=== PATIENT | female | born 1955 | race Two or more races ===

== ENCOUNTER → 2016-07-02 | Outpatient (CLI) | payer MEDICARE, BC | LOC: SP 12:43 | PROVIDERS: ATTEND Internal Medicine | DX: S70.11XA Contusion of right thigh, initial encounter (principal); X58.XXXA Exposure to other specified factors, initial encounter | CPT/HCPCS: 93971 ==

== ENCOUNTER 2016-10-27 23:40 | Emergency (ER) | payer MEDICARE, BC ==
--- NOTE | 2016-10-28 00:32 | ER Document Report ---
ED General - General Chief Complaint: Dialysis Catheter Problem Stated Complaint: ARM LACERATION Time Seen by Provider: 10/28/16 00:17 Notes: Patient is a 61-year-old female who has end-stage renal disease and is on dialysis. She received dialysis Tuesday. She has a fistula in the right arm. She says started bleeding today. His first time she has ever had a bleed. Fistula was 12 years old. He was placed by Dr. Wilmer Nelson. She held pressure at home. Bleeding is almost completely stopped at this time. She is not on blood thinners. She has no other complaints at this time. TRAVEL OUTSIDE OF THE [place] IN LAST 30 DAYS: No COUNTRY TRAVELED TO/FROM: [facility] - Related Data Allergies/Adverse Reactions: amlodipine besylate [From Norvasc] Allergy (Severe, Verified 02/03/15 08:53) unsure diphenhydramine HCl [From Benadryl] Allergy (Severe, Verified 02/03/15 08:53) Hives heparin (porcine) [Heparin,Porcine] Allergy (Severe, Verified 02/03/15 08:53) Hives losartan [Losartan] Allergy (Severe, Verified 02/03/15 08:53) unsure Pork/Porcine Containing Products [Pork/Porcine Product Derivatives] Allergy ( Severe, Verified 02/03/15 08:53) acetaminophen [From Percocet] Allergy (Intermediate, Verified 02/03/15 08:54) Hives oxycodone HCl [From Percocet] Allergy (Intermediate, Verified 02/03/15 08:54) Hives formoterol fumarate [From Dulera] Adverse Reaction (Severe, Verified 02/03/15 08 :54) Tachycardia mometasone furoate [From Dulera] Adverse Reaction (Severe, Verified 02/03/15 08: 54) Tachycardia ppd Allergy (Severe, Uncoded 02/03/15 08:53) converter Past Medical History - Social History Smoking Status: Never Smoker Frequency of alcohol use: None Drug Abuse: None Family History: Reviewed & Not Pertinent Patient has suicidal ideation: No Patient has homicidal ideation: No - Past Medical History Cardiac Medical History: Reports: Hx Hypertension Pulmonary Medical History: Reports: Hx Asthma Endocrine Medical History: Reports: Hx Diabetes Mellitus Type 2, Hx Hypothyroidism Renal/ Medical History: Reports: Hx End Stage Renal Disease, Hx Hemodialysis, Hx Renal Insufficiency. Denies: Hx Peritoneal Dialysis GI Medical History: Reports: Hx Hepatitis Musculoskeltal Medical History: Reports Hx Arthritis Psychiatric Medical History: Reports: Hx Anxiety, Hx Depression Infectious Medical History: Reports: Hx Hepatitis Past Surgical History: Reports: Hx Cardiac Catheterization, Hx Cardiac Surgery - aortic valve replacement, Hx Cholecystectomy, Hx Gynecologic Surgery - fibroids, Hx Hysterectomy, Hx Kidney (Renal Surgery) - biopsies, Hx Orthopedic Surgery - right elbow, Hx Tonsillectomy, Hx Vascular Surgery - RIGHT FOREARM AV FISTULA - Immunizations Immunizations up to date: Yes Hx Diphtheria, Pertussis, Tetanus Vaccination: Yes Hx Pneumococcal Vaccination: 12/27/07 Review of Systems - Review of Systems Notes: My Normal Review Basic REVIEW OF SYSTEMS: CONSTITUTIONAL : Denies fever, chills, or sweats. Denies recent illness. MUSCULOSKELETAL: Bleeding from fistula in right arm. SKIN: Denies rash or skin lesions. NEUROLOGICAL: Denies altered mental status or loss of consciousness. Denies headache. Denies weakness or paralysis or loss of use of either side. Denies problems with gait or speech. Denies sensory or motor loss. ALL OTHER SYSTEMS REVIEWED AND NEGATIVE. Physical Exam - Vital signs Vitals: Temp Pulse Resp BP Pulse Ox 98.8 F 83 18 183/74 H 98 10/27/16 23:46 10/27/16 23:46 10/27/16 23:46 10/27/16 23:46 10/27/16 23:46 - Notes Notes: General Appearance: Well nourished, alert, cooperative, no acute distress, no obvious discomfort. Vitals: reviewed, See vital signs table. Eyes: PERRL, EOMI, Conjuctiva clear Extremities: Fistula in right forearm. Good palpable thrill. Good distal pulses. There is a small pinpoint area where there is just slow venous ooze from the fistula. Otherwise looks normal. No redness or swelling. Skin: warm, dry, appropriate color, no rash Neuro: speech clear, oriented x 3, normal affect, responds appropriately to questions. Course - Re-evaluation Re-evalutation: 10/28/16 01:28 I placed a quick clot dressing with a compression dressing over the fistula. It is been an hour since I place a dressing. She has no further bleeding. Distal pulses are good. It has a good palpable thrill. Patient safe to be discharged home. Will place dressing over the fistula. Encouraged her leave until she follows up with her dialysis tomorrow. Patient agrees with plan will be discharged home. She is encouraged to return to ER immediately if she has any recurrence of bleeding. Dictation of this chart was performed using voice recognition software; therefore, there may be some unintended grammatical errors. - Vital Signs Vital signs: Temp Pulse Resp BP Pulse Ox 98.8 F 83 18 183/74 H 98 10/27/16 23:46 10/27/16 23:46 10/27/16 23:46 10/27/16 23:46 10/27/16 23:46 Discharge - Discharge Clinical Impression: Dialysis fistula bleed Condition: Good Disposition: HOME, SELF-CARE Additional Instructions: Please keep the fistula covered until you go to dialysis in the am. Please return to the ER if you have recurrent bleeding. Referrals: ALLI GREENFIELD MD [Primary Care Provider] - Follow up as needed
[2016-10-28 01:48] VITALS: BP 125/61
== END 2016-10-28 01:47 | disposition home or self-care (01) ==
LOC: ER 23:40
DX: T82.838A Hemorrhage due to vascular prosthetic devices, implants and grafts, initial encounter (principal); Y84.1 Kidney dialysis as the cause of abnormal reaction of the patient, or of later complication, without mention of misadventure at the time of the procedure; I12.0 Hypertensive chronic kidney disease with stage 5 chronic kidney disease or end stage renal disease; E11.22 Type 2 diabetes mellitus with diabetic chronic kidney disease; N18.6 End stage renal disease; Z99.2 Dependence on renal dialysis; J45.909 Unspecified asthma, uncomplicated; Z88.8 Allergy status to other drugs, medicaments and biological substances; Z91.018 Allergy to other foods; Z88.5 Allergy status to narcotic agent
CPT/HCPCS: 99283

== ENCOUNTER 2016-12-06 08:10 | Day surgery (SDC) | payer MEDICARE, BC ==
[2016-12-06 08:10] LABS: HEMATOCRIT 29.5 % (36.0-47.0); HEMOGLOBIN 10.1 g/dL (12.0-15.5); HGB HCT DIFFERENCE 0.8; MEAN CORPUSCULAR HEMOGLOBIN 35.2 pg (27.0-33.4); MEAN CORPUSCULAR HGB CONC 34.2 g/dL (32.0-36.0); MEAN CORPUSCULAR VOLUME 103 fl (80-97); RED BLOOD COUNT 2.86 10^6/uL (3.72-5.28); RED CELL DISTRIBUTION WIDTH 16.1 % (11.5-14.0)
[2016-12-06 08:18] LABS: ANION GAP 14 (5-19); BLOOD UREA NITROGEN 52 mg/dL (7-20); CALCIUM 9.3 mg/dL (8.4-10.2); CARBON DIOXIDE 28 mmol/L (22-30); CHLORIDE 95 mmol/L (98-107); CREATININE RESULT 6.95 mg/dL (0.52-1.25); GLUCOSE 128 mg/dL (75-110); POTASSIUM 4.7 mmol/L (3.6-5.0); SODIUM 137.1 mmol/L (137-145)
[2016-12-06] MEDS ORDERED: DIAZEPAM 5 MG TABLET ONE (08:39)
[2016-12-06] MEDS ORDERED: OXYCODONE-ACETAMINOPHEN 5-325 MG TABLET ONE (08:39)
[2016-12-06] MEDS ORDERED: FENTANYL CITRATE INJ/PF 100 MCG/2 ML AMPUL ONE (09:44)
[2016-12-06] MEDS ORDERED: LIDOCAINE 0.5% INJ-PF (5 MG/ML) 50 ML SDV ONE (09:44)
[2016-12-06] MEDS ORDERED: MIDAZOLAM 2 MG/2 ML INJ ONE (09:44)
[2016-12-06] MEDS ORDERED: ALTEPLASE INJ 2 MG VIAL (CATH CLEARANCE) INJ PRN (10:18)
--- NOTE | 2016-12-06 10:56 | PDOC DISCHARGE SUMMARY ---
Discharge Summary (SDC) - Discharge Final Diagnosis: #1 malfunctioning AV fistula right radiocephalic. 2. End-stage renal disease on hemodialysis. 3. Diabetes mellitus type 2. 4. Overweight status. Diabetes mellitus type 2. 4. Overweight status. 5. Heart valve replacement. 6. Hypertension. Date of Surgery: 12/06/16 Discharge Date: 12/06/16 Condition: Fair Treatment or Instructions: Discharge home [after recovery per ASU criteria]. Diet , [renal],as tolerated, when fully awake advance as tolerated. Activities within moderation encouraged. Follow up in my office by appointment in about [1 month]. Call for appointment. Leave wounds [covered], [keep clean and dry, until hemodialysis]. Meds per med rec. May shower [in 48 hrs], [try to keep operated area as dry as possible]. Referrals: ALLI GREENFIELD MD [Primary Care Provider] - Discharge Diet: Other (Comments) - Renal Respiratory Treatments at Home: Deep Breathing/Coughing Discharge Activity: Activity As Tolerated Report the Following to Your Physician Immediately: Shortness of Breath, Unusual Bleeding
--- NOTE | 2016-12-06 11:04 | Operative Report ---
Operative Report DATE OF SURGERY: 12/06/16 PREOPERATIVE DIAGNOSIS: #1 malfunctioning AV fistula right radiocephalic. 2. End-stage renal disease on hemodialysis. 3. Diabetes mellitus type 2. 4. Overweight status. Diabetes mellitus type 2. 4. Overweight status. 5. Heart valve replacement. 6. Hypertension. POSTOPERATIVE DIAGNOSIS: #1 malfunctioning AV fistula right radiocephalic. 2. End-stage renal disease on hemodialysis. Post angioplasty. 3. Diabetes mellitus type 2. 4. Overweight status. Diabetes mellitus type 2. 4. Overweight status. 5. Heart valve replacement. 6. Hypertension. Post angioplasty. OPERATION: 1. Needle access and arteriovenous fistula. 2. Second needle into fistula, retrograde. 3. Angioplasty in arteriovenous fistula. 4. Angiogram and interpretation. SURGEON: ASHA REYES VISCOSITY TESTER: [place] ANESTHESIA: Moderate Sedation TISSUE REMOVED OR ALTERED: Not applicable. COMPLICATIONS: None ESTIMATED BLOOD LOSS: 5 mL. INTRAOPERATIVE FINDINGS: Of a well founded right forearm radiocephalic fistula. (Slightly is softer. Cephalad angiogram shows outflow into basilic and cephalic systems. Inflow from a nice 5 mm radial artery 5 mm anastomosis. Chain of lymph nodes type stenoses noted from about 3 cm from the anastomosis to 6 cm from the anastomosis. Estimated 70% stenosis. Eliminated by angioplasty. PROCEDURE: PROCEDURE: After verifying the procedure and having obtained informed consent, the patient's right arm and forearm were prepared with Chlorhexidine and draped out with sterile linen. Local anesthesia infiltrated. Percutaneous access into the fistula obtained about 6 cm from the anastomosis and antegrade angiogram showed essentially normal findings. Percutaneous access into the fistula ,[retrograde], obtained about [20 cm] from the arteriovenous anastomosis using a micro puncture needle followed by micro puncture wire and then a micro puncture catheter. A 0.035 [place] wire was inserted, and over this, a 6 [place] short introducer was placed, this was followed by a 5 mm angioplasty balloon . Angioplasty was now done at the proximal fistula segment. This was done using a 3 mils syringe for 1 minut. utcome. Completion angiogram demonstrated [satisfactory result]. The instrumentation was now withdrawn over and pressure for 10 minutes. Dressings applied, procedure concluded. Exposure time: 1.1 minutes Radiation: 0.9 mcg per centimeter squared Contrast: 25 mL of Isovue-M 300 low osmolality. DICTATING PHYSICIAN: ASHA SRIVASTAVA M.D. cc: ASHA SRIVASTAVA M.D. ([id number]) >>
[2016-12-06 12:23] VITALS: BP 143/59
--- NOTE | 2016-12-06 15:39 | RADIOLOGY REPORT (SQ) ---
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 TECHNIQUE: Intra-operative images acquired during surgical procedure to evaluate progress. NUMBER OF IMAGES: Cine fluoroscopic images. LIMITATIONS: None. FINDINGS: Intra procedural imaging and fluoro during procedure per Dr. Nelson IMPRESSION: Intra procedural imaging and fluoro COMMENT: Quality ID [id number]: Final reports for procedures using fluoroscopy that document radiation exp osure indices, or exposure time and number of fluorographic images (if radiation exposure indices are not available) Please consult full operative report of the attending physician for description of the procedure. TECHNICAL DOCUMENTATION: JOB ID: [id number] [employer]- All Rights Reserved
== END 2016-12-06 12:33 | disposition home or self-care (01) ==
LOC: SC 08:10
PROVIDERS: ATTEND Surgery
PROC: 057D3DZ Dilation of Right Cephalic Vein with Intraluminal Device, Percutaneous Approach (ICD-10-PCS; principal; 2016-12-06)
DX: T82.858A Stenosis of other vascular prosthetic devices, implants and grafts, initial encounter (principal); Y83.2 Surgical operation with anastomosis, bypass or graft as the cause of abnormal reaction of the patient, or of later complication, without mention of misadventure at the time of the procedure; I12.0 Hypertensive chronic kidney disease with stage 5 chronic kidney disease or end stage renal disease; E11.22 Type 2 diabetes mellitus with diabetic chronic kidney disease; N18.6 End stage renal disease; Z99.2 Dependence on renal dialysis; E66.3 Overweight; J45.909 Unspecified asthma, uncomplicated; E78.00 Pure hypercholesterolemia, unspecified; G47.30 Sleep apnea, unspecified; I73.9 Peripheral vascular disease, unspecified; E11.621 Type 2 diabetes mellitus with foot ulcer; L97.519 Non-pressure chronic ulcer of other part of right foot with unspecified severity; Z95.2 Presence of prosthetic heart valve; Z88.8 Allergy status to other drugs, medicaments and biological substances
CPT/HCPCS: 36415; 85027; 80048; 36902; C1752; C1725; C1887; Q9967; C1769; J2997; J2250; A9270 ×2; J3010; J3490

== ENCOUNTER 2016-12-17 07:14 | Emergency (ER) | payer MEDICARE, BC ==
[2016-12-17] MEDS ORDERED: ONDANSETRON 4 MG TAB.RAPDIS PO ONE (08:19)
[2016-12-17] MEDS ORDERED: LIDOCAINE 5% (700 MG) TRANSDERMAL ADH..PATCH TP ONE (08:25)
--- NOTE | 2016-12-17 09:07 | ER Document Report ---
HPI - HPI Patient complains to provider of: knee, ankle pain, chronic back pain Onset: Other - Chronic, worse over the past week. Quality of pain: Sharp Pain Level: 5 Context: Patient presents complaining of flareup of her chronic arthritic pain to her right knee and right ankle. Patient also states that she has chronic low back pain with sciatica to the right lower extremity. Patient denies any urinary symptoms. Patient denies any new injury. Associated Symptoms: Other - Right ankle, right knee, low back Exacerbated by: Movement, Walking Relieved by: Denies Similar symptoms previously: Yes Recently seen / treated by doctor: Yes - ROS ROS below otherwise negative: Yes Systems Reviewed and Negative: Yes All other systems reviewed and negative - EENT EENT: DENIES: Sore Throat - NEURO Neurology: DENIES: Weakness - CARDIOVASCULAR Cardiovascular: DENIES: Chest pain - RESPIRATORY Respiratory: DENIES: Trouble Breathing, Coughing - GASTROINTESTINAL Gastrointestinal: REPORTS: Nausea. DENIES: Patient vomiting - REPRODUCTIVE Reproductive: DENIES: : - MUSCULOSKELETAL Musculoskeletal: REPORTS: Extremity pain, Back Pain. 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 Denies: Hx Peritoneal Dialysis GI Medical History: Reports: Hx Hepatitis Musculoskeltal Medical History: Reports Hx Arthritis - ALL OVER Psychiatric Medical History: Reports: Hx Anxiety, Hx Depression Infectious Medical History: Reports: Hx Hepatitis Past Surgical History: Reports: Hx Cardiac Catheterization, Hx Cardiac Surgery - aortic valve replacement, Hx Cholecystectomy, Hx Gynecologic Surgery - fibroids, Hx Hysterectomy, Hx Kidney (Renal Surgery) - biopsies, Hx Orthopedic Surgery - right elbow, Hx Tonsillectomy, Hx Vascular Surgery - RIGHT FOREARM AV FISTULA - Immunizations Immunizations up to date: Yes Hx Diphtheria, Pertussis, Tetanus Vaccination: Yes Hx Pneumococcal Vaccination: 12/27/07 Vertical Provider Document - CONSTITUTIONAL Agree With Documented VS: Yes Exam Limitations: No Limitations General Appearance: WD/WN, No Apparent Distress - INFECTION CONTROL TRAVEL OUTSIDE OF THE [place] IN LAST 30 DAYS: No COUNTRY TRAVELED TO/FROM: [place] - HEENT HEENT: Atraumatic, Normocephalic - NECK Neck: Normal Inspection - RESPIRATORY Respiratory: Breath Sounds Normal, No Respiratory Distress O2 Sat by Pulse Oximetry: 100 - CARDIOVASCULAR Cardiovascular: Regular Rate, Regular Rhythm Pulses: Normal: Posterior tibial, Dorsalis pedis - BACK Back: Abnormal Inspection - Lower lumbar tenderness, right SI joint tenderness. negative: CVA Tenderness-Right, CVA Tenderness-Left - MUSCULOSKELETAL/EXTREMETIES Musculoskeletal/Extremeties: MAEW, FROM, Tender - Generalized right knee joint tenderness, right ankle tenderness over lateral malleolar area with 1+ edema. Ankle tender with very light palpation, normal skin color and temperature overlying joint - NEURO Level of Consciousness: Awake, Alert, Appropriate Motor/Sensory: No Motor Deficit - DERM Integumentary: Warm, Dry Course - Re-evaluation Re-evalutation: 12/17/16 The patient presents with low back pain without signs of spinal cord compression , cauda equina syndrome, infection, aneurysm, or other serious etiology. The patient is neurologically intact. Given the extremely risk of these diagnoses further testing and evaluation for these possibilities does not appear to be indicated at this time. Patient has been instructed to return if the symptoms worsen or change in any way. - Vital Signs Vital signs: Temp Pulse Resp BP Pulse Ox 99.0 F 69 18 125/53 L 100 12/17/16 07:15 12/17/16 07:15 12/17/16 07:15 12/17/16 07:15 12/17/16 07:15 - Laboratory Laboratory results interpreted by me: 12/17/16 10:31 Labs- Entire Visit 12/17/16 08:28 Uric Acid 4.5 Discharge - Discharge Clinical Impression: Arthritis Chronic back pain Qualifiers: Back pain location: low back pain Back pain laterality: unspecified Sciatica presence: with sciatica Sciatica laterality: sciatica of right side Qualified Code(s): M54.41 - Lumbago with sciatica, right side Ankle pain, right Qualifiers: Chronicity: chronic Qualified Code(s): M25.571 - Pain in right ankle and joints of right foot Right knee pain Qualifiers: Chronicity: chronic Qualified Code(s): M25.561 - Pain in right knee Condition: Stable Disposition: HOME, SELF-CARE Instructions: Arthritis ([facility]), Chronic Back Pain ([facility]), Muscle Relaxers ([facility]) Additional Instructions: Return immediately for any new or worsening symptoms Followup with your primary care provider, call tomorrow to make a followup appointment Take your pain medication that you have at home as prescribed Prescriptions: Cyclobenzaprine HCl [Flexeril 5 mg Tablet] 5 mg PO TID #15 tablet Walker [Folding Walker] 1 each MC ASDIR PRN #1 each PRN Reason: Referrals: [facility] FOR SURGERY ([facility]) [Provider Group] - Follow up as needed JOSE MIGUEL ROSA MD [[facility]] - 12/20/16
[2016-12-17] MEDS ORDERED: CYCLOBENZAPRINE HCL 10 MG TABLET PO ONE (09:54)
[2016-12-17 09:58] VITALS: BP 130/56
== END 2016-12-17 10:08 | disposition home or self-care (01) ==
LOC: ER 07:14
DX: G89.29 Other chronic pain (principal); M25.561 Pain in right knee; M25.571 Pain in right ankle and joints of right foot; M54.41 Lumbago with sciatica, right side; M17.11 Unilateral primary osteoarthritis, right knee; M19.071 Primary osteoarthritis, right ankle and foot; R11.0 Nausea; J44.9 Chronic obstructive pulmonary disease, unspecified; E11.22 Type 2 diabetes mellitus with diabetic chronic kidney disease; I12.0 Hypertensive chronic kidney disease with stage 5 chronic kidney disease or end stage renal disease; N18.6 End stage renal disease; Z99.2 Dependence on renal dialysis; Z95.2 Presence of prosthetic heart valve
CPT/HCPCS: 99283; 36415; 84550; A9270 ×2; S0119

== ENCOUNTER 2017-02-21 08:52 | Emergency (ER) | payer MEDICARE, BC ==
--- NOTE | 2017-02-21 10:25 | RADIOLOGY REPORT (SQ) ---
EXAM DESCRIPTION: CHEST SINGLE VIEW COMPLETED DATE/TIME: 02/21/2017 10:16 am REASON FOR STUDY: difficulty breathing COMPARISON: 01/20/2016. NUMBER OF VIEWS: One view. TECHNIQUE: Single frontal radiographic view of the chest acquired. LIMITATIONS: None. FINDINGS: LUNGS AND PLEURA: No opacities, masses or pneumothorax. No pleural effusion. MEDIASTINUM AND HILAR STRUCTURES: Mild prominence of the central vascularity, slight congestion. Oth erwise normal with stable contours. HEART AND VASCULAR STRUCTURES: Stable heart size. BONES: No acute findings. HARDWARE: No indwelling lines. Sternal wires appear to be intact. OTHER: No other significant finding. IMPRESSION: Mild vascular congestion. TECHNICAL DOCUMENTATION: JOB ID: [id number] [employer]- All Rights Reserved
[2017-02-21 10:32] LABS: ABSOLUTE LYMPHOCYTES (AUTO) 0.6 10^3/uL (0.5-4.7); ABSOLUTE MONOCYTES (AUTO) 0.5 10^3/uL (0.1-1.4); ABSOLUTE NEUT (AUTO) 3.7 10^3/uL (1.7-8.2); BASOPHILS % (AUTO) 0.9 % (0-2); HEMATOCRIT 28.7 % (36.0-47.0); HEMOGLOBIN 9.8 g/dL (12.0-15.5); HGB HCT DIFFERENCE 0.7; LYMPHOCYTES % (AUTO) 13.3 % (13-45); MEAN CORPUSCULAR HEMOGLOBIN 33.7 pg (27.0-33.4); MEAN CORPUSCULAR HGB CONC 34.1 g/dL (32.0-36.0); MEAN CORPUSCULAR VOLUME 99 fl (80-97); MONOCYTES % (AUTO) 9.3 % (3-13); RED BLOOD COUNT 2.91 10^6/uL (3.72-5.28); RED CELL DISTRIBUTION WIDTH 14.8 % (11.5-14.0); SEGMENTED NEUTROPHILS % (AUTO) 76.5 % (42-78); WHITE BLOOD COUNT 4.9 10^3/uL (4.0-10.5)
--- NOTE | 2017-02-21 10:48 | ER Document Report ---
ED Respiratory Problem - General Chief Complaint: Breathing Difficulty Stated Complaint: DIFFICULTY BREATHING Time Seen by Provider: 02/21/17 10:45 Mode of Arrival: Ambulatory Information source: Patient TRAVEL OUTSIDE OF THE [place] IN LAST 30 DAYS: No COUNTRY TRAVELED TO/FROM: [facility] - [facility] Patient complains to provider of: Cough, Short of breath Onset: Other - 5 DAYS Duration: Continuous Initiating Event: Out of meds - OUT OF ALBUTEROL NEB AND MDI. Quality of pain: Other - SORENESS W/ COUGH Context: Hx asthma, Other - ESRD, ON HEMODIALYSIS, LAST TREATMENT 02/19 Short of Breath: Mild Chest pain/discomfort: Center Cough: Productive Sputum amount: Scant Sputum color: Clear, White Sputum consistency: Mucoid At home treatment: Bronchodilators Associated symptoms: Fever Similar symptoms previously: Yes - NOT RECENT Recently seen / treated by doctor: Yes - DIALYSIS 02/19 - Related Data Allergies/Adverse Reactions: amlodipine besylate [From Norvasc] Allergy (Severe, Verified 02/21/17 09:01) Hives diphenhydramine HCl [From Benadryl] Allergy (Severe, Verified 02/21/17 09:01) Hives heparin (porcine) [Heparin,Porcine] Allergy (Severe, Verified 02/21/17 09:01) Fever losartan [Losartan] Allergy (Severe, Verified 02/21/17 09:01) unsure Pork/Porcine Containing Products [Pork/Porcine Product Derivatives] Allergy ( Severe, Verified 02/21/17 09:01) formoterol fumarate [From Dulera] Adverse Reaction (Severe, Verified 02/21/17 09 :01) Tachycardia mometasone furoate [From Dulera] Adverse Reaction (Severe, Verified 02/21/17 09: 01) Tachycardia ppd Allergy (Severe, Uncoded 02/21/17 09:01) converter Past Medical History - General Information source: Patient - Social History Smoking Status: Former Smoker Cigarette use (# per day): No Chew tobacco use (# tins/day): No Frequency of alcohol use: None Drug Abuse: None Lives with: Family Family History: Reviewed & Not Pertinent Patient has suicidal ideation: No Patient has homicidal ideation: No - Past Medical History Cardiac Medical History: Reports: Hx Hypertension, Hx Heart Murmur - AORTIC STENOSIS Denies: Hx Coronary Artery Disease - HEART CATH 10/11 CLEAR, Hx Heart Attack Pulmonary Medical History: Reports: Hx Asthma - SEASONAL ALLERGIES TRIGGER ASTHMA, Hx COPD Denies: Hx Bronchitis, Hx Pneumonia Neurological Medical History: Denies: Hx Cerebrovascular Accident, Hx Seizures Endocrine Medical History: Reports: Hx Diabetes Mellitus Type 2, Hx Hypothyroidism Renal/ Medical History: Reports: Hx End Stage Renal Disease, Hx Hemodialysis, Hx Renal Insufficiency. Denies: Hx Peritoneal Dialysis Malignancy Medical History: Reports: None GI Medical History: Reports: Hx Hepatitis Musculoskeltal Medical History: Reports Hx Arthritis - ALL OVER Psychiatric Medical History: Reports: Hx Anxiety, Hx Depression Infectious Medical History: Reports: Hx Hepatitis Past Surgical History: Reports: Hx Cardiac Catheterization, Hx Cardiac Surgery - aortic valve replacement, Hx Cholecystectomy, Hx Gynecologic Surgery - fibroids, Hx Hysterectomy, Hx Kidney (Renal Surgery) - biopsies, Hx Orthopedic Surgery - right elbow, Hx Tonsillectomy, Hx Vascular Surgery - RIGHT FOREARM AV FISTULA - Immunizations Immunizations up to date: Yes Hx Diphtheria, Pertussis, Tetanus Vaccination: Yes Hx Pneumococcal Vaccination: 12/27/07 Review of Systems - Review of Systems Constitutional: Diaphoresis, Fever EENT: No symptoms reported Cardiovascular: See HPI Respiratory: See HPI Gastrointestinal: No symptoms reported Genitourinary: No symptoms reported Female Genitourinary: Post menopausal Musculoskeletal: No symptoms reported Skin: No symptoms reported Neurological/Psychological: No symptoms reported Physical Exam - Vital signs Vitals: Temp Pulse Resp BP Pulse Ox 99.0 F 79 20 144/64 H 99 02/21/17 08:55 02/21/17 08:55 02/21/17 08:55 02/21/17 08:55 02/21/17 08:55 Interpretation: Hypertensive. No: Tachycardic, Hypoxic, Tachypneic, Febrile - General General appearance: Appears well In distress: None - HEENT Head: Normocephalic Eyes: Normal Conjunctiva: Normal Ears: Normal Nasal: Normal Mouth/Lips: Normal Mucous membranes: Normal Pharynx: Normal - Respiratory Respiratory status: No respiratory distress Breath sounds: Normal. No: Rales, Rhonchi, Wheezing - Cardiovascular Rhythm: Regular Murmur: Yes Systolic murmur grade 1-6: 4 Friction rub: No Wilbert's crunch: No - Abdominal Inspection: Obese - Extremities General upper extremity: Normal inspection General lower extremity: Edema - 1+ - Neurological Neuro grossly intact: Yes Cognition: Normal Orientation: AAOx4 - Psychological Associated symptoms: Normal affect, Normal mood - Skin Skin Temperature: Warm Skin Moisture: Dry Skin Color: Normal Skin Turgor: Elastic Course - Vital Signs Vital signs: Temp Pulse Resp BP Pulse Ox 99.0 F 79 18 134/60 H 95 02/21/17 08:55 02/21/17 08:55 02/21/17 14:01 02/21/17 14:01 02/21/17 14:00 - Laboratory Result Diagrams: 02/21/17 10:15 02/21/17 10:15 Laboratory results interpreted by me: 02/21/17 02/21/17 10:15 10:15 RBC 2.91 L Hgb 9.8 L Hct 28.7 L MCV 99 H MCH 33.7 H RDW 14.8 H Plt Count 143 L Sodium 136.8 L Potassium 6.4 H* Chloride 94 L BUN 61 H Creatinine 7.64 H Est GFR ( Amer) 7 L Est GFR (Non-Af Amer) 5 L Glucose 146 H Direct Bilirubin 1.0 H AST 46 H Alkaline Phosphatase 140 H - Consults DR. HOYOS Reason for consultation: 02/21/17 20:29 ACCEPTS PATIENT FOR TRANSFER TO [facility] (HEMODIALYSIS UNAVAILABLE AT [facility] FOR EXTENDED TIME PERIOD). Discharge - Discharge Clinical Impression: Hyperkalemia, End stage renal disease Hypervolemia Qualifiers: Hypervolemia type: unspecified Qualified Code(s): E87.70 - Fluid overload, unspecified Condition: Stable Disposition: [facility]
[2017-02-21 10:54] LABS: ALANINE AMINOTRANSFERASE 50 U/L (9-52); ALKALINE PHOSPHATASE 140 U/L (38-126); ANION GAP 15 (5-19); ASPARTATE AMINO TRANSFERASE 46 U/L (14-36); BLOOD UREA NITROGEN 61 mg/dL (7-20); CALCIUM 8.5 mg/dL (8.4-10.2); CARBON DIOXIDE 28 mmol/L (22-30); CHLORIDE 94 mmol/L (98-107); CREATININE RESULT 7.64 mg/dL (0.52-1.25); GLUCOSE 146 mg/dL (75-110); SODIUM 136.8 mmol/L (137-145); TOTAL PROTEIN 7.1 g/dL (6.3-8.2)
[2017-02-21 10:58] LABS: POTASSIUM 6.4 mmol/L (3.6-5.0)
[2017-02-21] MEDS ORDERED: ALBUTEROL SULFATE 0.083% NEB 2.5 MG/3 ML AMPUL NEB ONE (11:00)
[2017-02-21] MEDS ORDERED: CALCIUM GLUCONATE 1000 MG/10 ML INJ IV ONE (11:02)
[2017-02-21] MEDS ORDERED: ONDANSETRON HCL INJ/PF 4 MG/2 ML SDV IV ONE (11:49)
--- NOTE | 2017-02-21 13:23 | EKG REPORT ---
SEVERITY:- NORMAL ECG - SINUS RHYTHM : Confirmed by: Kirill Dang MD 21-Feb-2017 13:22:14
[2017-02-21 14:09] VITALS: BP 134/60
== END 2017-02-21 14:20 | disposition short-term general hospital (02) ==
LOC: ER 08:52
DX: E87.5 Hyperkalemia (principal); E87.70 Fluid overload, unspecified; R06.00 Dyspnea, unspecified; R05 Cough; R06.02 Shortness of breath; R50.9 Fever, unspecified; E11.22 Type 2 diabetes mellitus with diabetic chronic kidney disease; I12.0 Hypertensive chronic kidney disease with stage 5 chronic kidney disease or end stage renal disease; N18.6 End stage renal disease; E03.9 Hypothyroidism, unspecified; Z99.2 Dependence on renal dialysis; Z95.2 Presence of prosthetic heart valve; Z90.49 Acquired absence of other specified parts of digestive tract
CPT/HCPCS: 93005; 94640; 99285; 96375; 96365; 36415; 85025; 80053; 71010; 93010; J0610; J2405; A9270

== ENCOUNTER → 2017-05-09 | Outpatient (CLI) | payer MEDICARE, BC ==
--- NOTE | 2017-05-09 15:22 | RADIOLOGY REPORT (SQ) ---
EXAM DESCRIPTION: KNEE LEFT 4 VIEWS COMPLETED DATE/TIME: 05/09/2017 11:33 am REASON FOR STUDY: ANKYLOSIS, LEFT KNEE M24.662 ANKYLOSIS, LEFT KNEE COMPARISON: None. NUMBER OF VIEWS: Four views. TECHNIQUE: AP, lateral, and both oblique radiographic images acquired of the left knee. LIMITATIONS: None. FINDINGS: MINERALIZATION: Normal. BONES: No acute fracture or dislocation. No worrisome bone lesions. JOINT: Severe degenerative changes involving the patellofemoral joint. Moderate degenerative changes involving the medial compartment and mild degenerative changes involving the lateral compartment. S mall joint effusion SOFT TISSUES: No soft tissue swelling. No radio-opaque foreign body. Severe arterial calcification. OTHER: No other significant finding. IMPRESSION: Severe degenerative changes involving the patellofemoral joint with less marked changes involving medial and lateral compartments. TECHNICAL DOCUMENTATION: JOB ID: [id number] [employer]- All Rights Reserved
== END ==
LOC: OD 10:55
PROVIDERS: ATTEND Internal Medicine
DX: M24.662 Ankylosis, left knee (principal)

== ENCOUNTER 2017-07-07 01:29 | Emergency (ER) | payer MEDICARE, BC ==
[2017-07-07] MEDS ORDERED: LIDOCAINE 1%/EPINEPHRINE INJ 20 ML VIAL INJ ONE (02:24)
--- NOTE | 2017-07-07 03:19 | ER Document Report ---
ED General - General Chief Complaint: Post Surgical Bleeding Stated Complaint: ARM BLEEDING Time Seen by Provider: 07/07/17 02:20 Mode of Arrival: Wheelchair Information source: Patient TRAVEL OUTSIDE OF THE [place] IN LAST 30 DAYS: No COUNTRY TRAVELED TO/FROM: [facility] Patient complains to provider of: Bleeding from AV fistula Onset: Yesterday Onset/Duration: Persistent Quality of pain: No pain Associated symptoms: None Notes: Patient is a 61-year-old female presenting to the emergency room today complaining of bleeding from the AV fistula in her right forearm since dialysis yesterday, she denies any pain, no generalized weakness, no other symptoms - Related Data Allergies/Adverse Reactions: amlodipine besylate [From Norvasc] Allergy (Severe, Verified 07/07/17 01:53) Hives diphenhydramine HCl [From Benadryl] Allergy (Severe, Verified 07/07/17 01:53) Hives heparin (porcine) [Heparin,Porcine] Allergy (Severe, Verified 07/07/17 01:53) Fever losartan [Losartan] Allergy (Severe, Verified 07/07/17 01:53) unsure Pork/Porcine Containing Products [Pork/Porcine Product Derivatives] Allergy ( Severe, Verified 07/07/17 01:53) formoterol fumarate [From Dulera] Adverse Reaction (Severe, Verified 07/07/17 01 :53) Tachycardia mometasone furoate [From Dulera] Adverse Reaction (Severe, Verified 07/07/17 01: 53) Tachycardia ppd Allergy (Severe, Uncoded 02/21/17 09:01) converter Past Medical History - General Information source: Patient - Social History Smoking Status: Former Smoker Chew tobacco use (# tins/day): No Frequency of alcohol use: None Drug Abuse: None Family History: Reviewed & Not Pertinent Patient has suicidal ideation: No Patient has homicidal ideation: No - Past Medical History Cardiac Medical History: Reports: Hx Hypertension, Hx Heart Murmur - AORTIC STENOSIS Denies: Hx Coronary Artery Disease - HEART CATH 10/11 CLEAR, Hx Heart Attack Pulmonary Medical History: Reports: Hx Asthma - SEASONAL ALLERGIES TRIGGER ASTHMA, Hx COPD Denies: Hx Bronchitis, Hx Pneumonia Neurological Medical History: Denies: Hx Cerebrovascular Accident, Hx Seizures Endocrine Medical History: Reports: Hx Diabetes Mellitus Type 2, Hx Hypothyroidism Renal/ Medical History: Reports: Hx End Stage Renal Disease, Hx Hemodialysis, Hx Renal Insufficiency. Denies: Hx Peritoneal Dialysis GI Medical History: Reports: Hx Hepatitis Musculoskeltal Medical History: Reports Hx Arthritis - ALL OVER Psychiatric Medical History: Reports: Hx Anxiety, Hx Depression Infectious Medical History: Reports: Hx Hepatitis Past Surgical History: Reports: Hx Cardiac Catheterization, Hx Cardiac Surgery - aortic valve replacement, Hx Cholecystectomy, Hx Gynecologic Surgery - fibroids, Hx Hysterectomy, Hx Kidney (Renal Surgery) - biopsies, Hx Orthopedic Surgery - right elbow, Hx Tonsillectomy, Hx Vascular Surgery - RIGHT FOREARM AV FISTULA - Immunizations Immunizations up to date: Yes Hx Diphtheria, Pertussis, Tetanus Vaccination: Yes Hx Pneumococcal Vaccination: 12/27/07 Review of Systems - Review of Systems Constitutional: No symptoms reported EENT: No symptoms reported Cardiovascular: No symptoms reported Respiratory: No symptoms reported Gastrointestinal: No symptoms reported Genitourinary: No symptoms reported Female Genitourinary: No symptoms reported Musculoskeletal: No symptoms reported Skin: See HPI Hematologic/Lymphatic: No symptoms reported Neurological/Psychological: No symptoms reported -: Yes All other systems reviewed and negative Physical Exam - Vital signs Vitals: Temp Pulse Resp BP Pulse Ox 98.0 F 69 20 171/51 H 97 07/07/17 01:52 07/07/17 01:52 07/07/17 01:52 07/07/17 01:52 07/07/17 01:52 - Notes Notes: - General General appearance: Appears well, Alert In distress: None - HEENT Head: Normocephalic, Atraumatic Eyes: Normal Conjunctiva: Normal Extraocular movements intact: Yes Eyelashes: Normal Pupils: PERRL - Respiratory Respiratory status: No respiratory distress - Cardiovascular Rhythm: Regular - Abdominal Inspection: Normal - Back Back: Normal - Extremities General upper extremity: AV fistula present in the right forearm, positive thrill, 2 small puncture areas that are oozing blood very slowly, distal sensation and motor is intact with brisk capillary refill and 2+ radial pulses General lower extremity: Normal inspection - Neurological Neuro grossly intact: Yes Orientation: AAOx4 [place] Coma Scale Eye Opening: Spontaneous [place] Coma Scale Verbal: Oriented [place] Coma Scale Motor: Obeys Commands [place] Coma Scale Total: 15 - Psychological Associated symptoms: Normal affect, Normal mood - Skin Skin Temperature: Warm Skin Moisture: Dry Skin Color: Normal Course - Re-evaluation Re-evalutation: 07/07/17 03:35 Bandages were removed from the AV fistula, there are 2 small puncture areas that are bleeding very slightly, Gelfoam was placed over these areas and a snug dressing was applied, patient was advised to leave this bandaging in place until her dialysis appointment in the morning, follow-up accordingly or return if symptoms worsen, patient acknowledges understanding and agreement with this plan - Vital Signs Vital signs: Temp Pulse Resp BP Pulse Ox 98.0 F 69 20 171/51 H 97 07/07/17 01:52 07/07/17 01:52 07/07/17 01:52 07/07/17 01:52 07/07/17 01:52 Discharge - Discharge Clinical Impression: Malfunction of arteriovenous dialysis fistula Qualifiers: Encounter type: initial encounter Qualified Code(s): T82.590A - Other mechanical complication of surgically created arteriovenous fistula, initial encounter Condition: Stable Disposition: HOME, SELF-CARE Instructions: Puncture Wound ([facility]) Additional Instructions: Follow up with your primary care provider in one to 2 days. Return to the emergency room immediately if symptoms worsen or any additional concerns.
[2017-07-07 03:42] VITALS: BP 176/56
== END 2017-07-07 03:42 | disposition home or self-care (01) ==
LOC: ER 01:29
DX: T82.590A Other mechanical complication of surgically created arteriovenous fistula, initial encounter (principal); G89.18 Other acute postprocedural pain; Z99.2 Dependence on renal dialysis; Z87.891 Personal history of nicotine dependence; I10 Essential (primary) hypertension; J44.9 Chronic obstructive pulmonary disease, unspecified; E11.9 Type 2 diabetes mellitus without complications
CPT/HCPCS: 99283; J3490

== ENCOUNTER 2017-07-08 19:33 | Emergency (ER) | payer MEDICARE, BC ==
--- NOTE | 2017-07-08 20:36 | ER Document Report ---
ED General - General Chief Complaint: Post Surgical Bleeding Stated Complaint: FATIGUE Time Seen by Provider: 07/08/17 20:16 Notes: Patient is a 61-year-old female with a past medical history of chronic kidney disease with dialysis dependence, aortic valve replacement with a mechanical valve requiring chronic and correlation on Coumadin, hypertension, hyperlipidemia, who presents with several days of ongoing bleeding from her right AV fistula. She describes a slow amount of a losing amount of bleeding. She was seen in the emergency department yesterday for the same and had a bandage placed which she states temporarily controlled the bleeding until today. She denies any trauma to the area. She states that she has been holding her warfarin per her rn traveling's instructions as her INR was apparently supratherapeutic at 5 earlier this week. She denies any history of similar issues in the past. Nothing improves or worsens her symptoms currently. She denies any pain to the fistula area. She has not missed any dialysis sessions secondary to this complication. TRAVEL OUTSIDE OF THE [place] IN LAST 30 DAYS: No COUNTRY TRAVELED TO/FROM: [facility] - Related Data Allergies/Adverse Reactions: amlodipine besylate [From Norvasc] Allergy (Severe, Verified 07/07/17 01:53) Hives diphenhydramine HCl [From Benadryl] Allergy (Severe, Verified 07/07/17 01:53) Hives heparin (porcine) [Heparin,Porcine] Allergy (Severe, Verified 07/07/17 01:53) Fever losartan [Losartan] Allergy (Severe, Verified 07/07/17 01:53) unsure Pork/Porcine Containing Products [Pork/Porcine Product Derivatives] Allergy ( Severe, Verified 07/07/17 01:53) formoterol fumarate [From Dulera] Adverse Reaction (Severe, Verified 07/07/17 01 :53) Tachycardia mometasone furoate [From Dulera] Adverse Reaction (Severe, Verified 07/07/17 01: 53) Tachycardia ppd Allergy (Severe, Uncoded 02/21/17 09:01) converter Past Medical History - General Information source: Patient - Social History Smoking Status: Former Smoker Chew tobacco use (# tins/day): No Frequency of alcohol use: None Drug Abuse: None Lives with: Alone Family History: Reviewed & Not Pertinent Patient has suicidal ideation: No Patient has homicidal ideation: No - Past Medical History Cardiac Medical History: Reports: Hx Hypertension, Hx Heart Murmur - AORTIC STENOSIS Denies: Hx Coronary Artery Disease - HEART CATH 10/11 CLEAR, Hx Heart Attack Pulmonary Medical History: Reports: Hx Asthma - SEASONAL ALLERGIES TRIGGER ASTHMA, Hx COPD Denies: Hx Bronchitis, Hx Pneumonia Neurological Medical History: Denies: Hx Cerebrovascular Accident, Hx Seizures Endocrine Medical History: Reports: Hx Diabetes Mellitus Type 2, Hx Hypothyroidism Renal/ Medical History: Reports: Hx End Stage Renal Disease, Hx Hemodialysis, Hx Renal Insufficiency. Denies: Hx Peritoneal Dialysis GI Medical History: Reports: Hx Hepatitis Musculoskeltal Medical History: Reports Hx Arthritis - ALL OVER Psychiatric Medical History: Reports: Hx Anxiety, Hx Depression Infectious Medical History: Reports: Hx Hepatitis Past Surgical History: Reports: Hx Cardiac Catheterization, Hx Cardiac Surgery - aortic valve replacement, Hx Cholecystectomy, Hx Gynecologic Surgery - fibroids, Hx Hysterectomy, Hx Kidney (Renal Surgery) - biopsies, Hx Orthopedic Surgery - right elbow, Hx Tonsillectomy, Hx Vascular Surgery - RIGHT FOREARM AV FISTULA - Immunizations Immunizations up to date: Yes Hx Diphtheria, Pertussis, Tetanus Vaccination: Yes Hx Pneumococcal Vaccination: 12/27/07 Review of Systems - Review of Systems Notes: Constitutional: Negative for fever. HENT: Negative for sore throat. Eyes: Negative for visual changes. Cardiovascular: Negative for chest pain. Respiratory: Negative for shortness of breath. Gastrointestinal: Negative for abdominal pain, vomiting or diarrhea. Genitourinary: Negative for dysuria. Musculoskeletal: Negative for back pain. Skin: Positive for bleeding from the AV fistula. Neurological: Negative for headaches, weakness or numbness. 10 point ROS negative except as marked above and in HPI. Physical Exam - Vital signs Vitals: Temp Pulse Resp BP Pulse Ox 98.2 F 67 20 198/66 H 98 07/08/17 19:34 07/08/17 19:34 07/08/17 19:34 07/08/17 19:34 07/08/17 19:34 Interpretation: Hypertensive Notes: PHYSICAL EXAMINATION: GENERAL: Well-appearing, well-nourished and in no acute distress. HEAD: Atraumatic, normocephalic. EYES: Pupils equal round and reactive to light, extraocular movements intact, sclera anicteric, conjunctiva are normal. ENT: nares patent, oropharynx clear without exudates. Moist mucous membranes. NECK: Normal range of motion, supple without lymphadenopathy LUNGS: Breath sounds clear to auscultation bilaterally and equal. No wheezes rales or rhonchi. HEART: Regular rate and rhythm, mechanical click ABDOMEN: Soft, nontender, normoactive bowel sounds. No guarding, no rebound. No masses appreciated. EXTREMITIES: Normal range of motion, no pitting or edema. No cyanosis. NEUROLOGICAL: No focal neurological deficits. Moves all extremities spontaneously and on command. PSYCH: Anxious, intermittently tearful SKIN: Warm, Dry, normal turgor, there is 2 small areas of punctate openings with small amount of slow venous bleeding over the AV fistula. Course - Re-evaluation Re-evalutation: 07/08/17 20:35 Patient presents with very small amount of bleeding from her fistula site in the right forearm. There is a very minimal oozing from 2 small punctate sites and the dressing is not significantly saturated. Patient's vitals are within acceptable limits without substantial tachycardia at 67 and she is actually quite hypertensive as opposed to hypotensive which is her baseline. Patient has been holding her Coumadin per her report for the past several days. Will obtain an INR, CBC and dressed the area. I do not believe that the patient warrants an acute referral to vascular surgery or a higher level of care at this time as she has almost no appreciable bleeding from the affected area and otherwise is well in appearance. I do believe that there are components of a social situation as the patient does report that she is alone and has no family or friends to support her. 07/08/17 21:47 Patient's INR remains in a therapeutic range at 2.71. I have requested that she begin to take her Coumadin tomorrow as scheduled. She is mildly anemic actually much improved from January 2017 at which time she was 9.8 on her hemoglobin. Bleeding has remained hemostatic. At this time will discharge with return precautions and follow-up recommendations. Verbal discharge instructions given a the bedside and opportunity for questions given. Medication warnings reviewed. Patient is in agreement with this plan and has verbalized understanding of return precautions and the need for primary care follow-up in the next 24-72 hours. - Vital Signs Vital signs: Temp Pulse Resp BP Pulse Ox 98 F 66 20 168/62 H 99 07/08/17 22:17 07/08/17 22:17 04/13/18 22:17 07/08/17 22:17 07/08/17 22:17 - Laboratory Result Diagrams: 07/08/17 20:50 Laboratory results interpreted by me: 07/08/17 07/08/17 20:50 20:50 WBC 3.4 L RBC 3.68 L Hgb 11.7 L Hct 35.2 L RDW 16.6 H Plt Count 95 L PT 30.0 H Discharge - Discharge Clinical Impression: Chronic anticoagulation, Chronic anemia, Essential hypertension Malfunction of arteriovenous dialysis fistula Qualifiers: Encounter type: initial encounter Qualified Code(s): T82.590A - Other mechanical complication of surgically created arteriovenous fistula, initial encounter Condition: Good Disposition: HOME, SELF-CARE Additional Instructions: Your blood counts are within acceptable ranges today. Your INR is 2.71 today. Please start taking your Coumadin tomorrow as we do not want your INR to drop below 2.5 given that you have an artificial valve. Please keep the pressure dressing on that we applied today. Follow up with your rn traveling and vascular surgeon about any ongoing bleeding from the area. Please return if you begin to have more rapid bleeding from the area, pass out, have spreading redness from the area, develop a fever, or have any other symptoms that are worrisome to you. Referrals: ALLI GREENFIELD MD [Primary Care Provider] - Follow up as needed
[2017-07-08 21:17] LABS: HEMATOCRIT 35.2 % (36.0-47.0); HEMOGLOBIN 11.7 g/dL (12.0-15.5); MEAN CORPUSCULAR HEMOGLOBIN 31.7 pg (27.0-33.4); MEAN CORPUSCULAR HGB CONC 33.1 g/dL (32.0-36.0); MEAN CORPUSCULAR VOLUME 96 fl (80-97); RED BLOOD COUNT 3.68 10^6/uL (3.72-5.28); RED CELL DISTRIBUTION WIDTH 16.6 % (11.5-14.0); WHITE BLOOD COUNT 3.4 10^3/uL (4.0-10.5)
[2017-07-08 21:20] LABS: PLATELET COUNT 95 10^3/uL (150-450)
[2017-07-08 21:28] LABS: INTERNATIONAL RATION (INR) 2.71
[2017-07-08 22:32] VITALS: BP 168/62
== END 2017-07-08 22:17 | disposition home or self-care (01) ==
LOC: ER 19:33
DX: T82.838A Hemorrhage due to vascular prosthetic devices, implants and grafts, initial encounter (principal); N18.6 End stage renal disease; D63.1 Anemia in chronic kidney disease; Z99.2 Dependence on renal dialysis; Z87.891 Personal history of nicotine dependence; I10 Essential (primary) hypertension; J45.909 Unspecified asthma, uncomplicated; E11.9 Type 2 diabetes mellitus without complications; Z79.01 Long term (current) use of anticoagulants
CPT/HCPCS: 36415; 85027; 85610; 99283

== ENCOUNTER 2017-07-09 17:24 | Emergency (ER) | payer MEDICARE, BC ==
--- NOTE | 2017-07-09 18:18 | ER Document Report ---
ED Medical Screen (RME) - General Chief Complaint: Other Stated Complaint: FISTULA ISSUES Time Seen by Provider: 07/09/17 18:13 Notes: 61-year-old dialysis patient on Coumadin for aortic valve replacement has been oozing from her right forearm fistula for several days. She did have dialysis today and it continued to lose. She was seen here yesterday for this problem and had a bandage placed. She returns today with the forearm bandaged from dialysis to be seen again. TRAVEL OUTSIDE OF THE [place] IN LAST 30 DAYS: No COUNTRY TRAVELED TO/FROM: [facility] - Related Data Allergies/Adverse Reactions: amlodipine besylate [From Norvasc] Allergy (Severe, Verified 07/07/17 01:53) Hives diphenhydramine HCl [From Benadryl] Allergy (Severe, Verified 07/07/17 01:53) Hives heparin (porcine) [Heparin,Porcine] Allergy (Severe, Verified 07/07/17 01:53) Fever losartan [Losartan] Allergy (Severe, Verified 07/07/17 01:53) unsure Pork/Porcine Containing Products [Pork/Porcine Product Derivatives] Allergy ( Severe, Verified 07/07/17 01:53) formoterol fumarate [From Dulera] Adverse Reaction (Severe, Verified 07/07/17 01 :53) Tachycardia mometasone furoate [From Dulera] Adverse Reaction (Severe, Verified 07/07/17 01: 53) Tachycardia ppd Allergy (Severe, Uncoded 02/21/17 09:01) converter Past Medical History - Social History Chew tobacco use (# tins/day): No Frequency of alcohol use: None Drug Abuse: None - Past Medical History Cardiac Medical History: Reports: Hx Hypertension, Hx Heart Murmur - AORTIC STENOSIS Denies: Hx Coronary Artery Disease - HEART CATH 10/11 CLEAR, Hx Heart Attack Pulmonary Medical History: Reports: Hx Asthma - SEASONAL ALLERGIES TRIGGER ASTHMA, Hx COPD Denies: Hx Bronchitis, Hx Pneumonia Neurological Medical History: Denies: Hx Cerebrovascular Accident, Hx Seizures Endocrine Medical History: Reports: Hx Diabetes Mellitus Type 2, Hx Hypothyroidism Renal/ Medical History: Reports: Hx End Stage Renal Disease, Hx Hemodialysis, Hx Peritoneal Dialysis, Hx Renal Insufficiency GI Medical History: Reports: Hx Hepatitis Musculoskeltal Medical History: Reports Hx Arthritis - ALL OVER Psychiatric Medical History: Reports: Hx Anxiety, Hx Depression Infectious Medical History: Reports: Hx Hepatitis Past Surgical History: Reports: Hx Cardiac Catheterization, Hx Cardiac Surgery - aortic valve replacement, Hx Cholecystectomy, Hx Gynecologic Surgery - fibroids, Hx Hysterectomy, Hx Kidney (Renal Surgery) - biopsies, Hx Orthopedic Surgery - right elbow, Hx Tonsillectomy, Hx Vascular Surgery - RIGHT FOREARM AV FISTULA - Immunizations Immunizations up to date: Yes Hx Diphtheria, Pertussis, Tetanus Vaccination: Yes History of Influenza Vaccine for 12/2016 - 05/2017 Season: Unknown Physical Exam - Vital signs Vitals: Temp Pulse Resp BP Pulse Ox 98.9 F 64 20 180/47 H 97 07/09/17 17:32 07/09/17 17:32 07/09/17 17:32 07/09/17 17:32 07/09/17 17:32 Course - Vital Signs Vital signs: Temp Pulse Resp BP Pulse Ox 98.9 F 64 20 180/47 H 97 07/09/17 17:32 07/09/17 17:32 07/09/17 17:32 07/09/17 17:32 07/09/17 17:32 Doctor's Discharge - Discharge Referrals: ALLI GREENFIELD MD [Primary Care Provider] - Follow up as needed
[2017-07-09] MEDS ORDERED: TRANEXAMIC ACID INJ/PF 1,000 MG/10 ML SDV IV ONE (19:23)
--- NOTE | 2017-07-09 20:16 | ER Document Report ---
ED General - General Chief Complaint: Other Stated Complaint: FISTULA ISSUES Time Seen by Provider: 07/09/17 18:13 Notes: The patient is a 61-year-old female, past medical history ESRD ([facility]), HTN, mechanical heart valve on Coumadin, presents with a small amount of oozing from her left AV fistula after her dialysis session. She was seen in the ER for similar complaints twice this week and the bleeding resolves after Surgicel. She denies lightheadedness, heavy bleeding, numbness or tingling. TRAVEL OUTSIDE OF THE [place] IN LAST 30 DAYS: No COUNTRY TRAVELED TO/FROM: [facility] - Related Data Allergies/Adverse Reactions: amlodipine besylate [From Norvasc] Allergy (Severe, Verified 07/07/17 01:53) Hives diphenhydramine HCl [From Benadryl] Allergy (Severe, Verified 07/07/17 01:53) Hives heparin (porcine) [Heparin,Porcine] Allergy (Severe, Verified 07/07/17 01:53) Fever losartan [Losartan] Allergy (Severe, Verified 07/07/17 01:53) unsure Pork/Porcine Containing Products [Pork/Porcine Product Derivatives] Allergy ( Severe, Verified 07/07/17 01:53) formoterol fumarate [From Dulera] Adverse Reaction (Severe, Verified 07/07/17 01 :53) Tachycardia mometasone furoate [From Dulera] Adverse Reaction (Severe, Verified 07/07/17 01: 53) Tachycardia ppd Allergy (Severe, Uncoded 02/21/17 09:01) converter Past Medical History - General Information source: Patient - Social History Smoking Status: Never Smoker Chew tobacco use (# tins/day): No Frequency of alcohol use: None Drug Abuse: None Family History: Reviewed & Not Pertinent Patient has suicidal ideation: No Patient has homicidal ideation: No - Past Medical History Cardiac Medical History: Reports: Hx Hypertension, Hx Heart Murmur - AORTIC STENOSIS Denies: Hx Coronary Artery Disease - HEART CATH 10/11 CLEAR, Hx Heart Attack Pulmonary Medical History: Reports: Hx Asthma - SEASONAL ALLERGIES TRIGGER ASTHMA, Hx COPD Denies: Hx Bronchitis, Hx Pneumonia Neurological Medical History: Denies: Hx Cerebrovascular Accident, Hx Seizures Endocrine Medical History: Reports: Hx Diabetes Mellitus Type 2, Hx Hypothyroidism Renal/ Medical History: Reports: Hx End Stage Renal Disease, Hx Hemodialysis, Hx Peritoneal Dialysis, Hx Renal Insufficiency GI Medical History: Reports: Hx Hepatitis Musculoskeltal Medical History: Reports Hx Arthritis - ALL OVER Psychiatric Medical History: Reports: Hx Anxiety, Hx Depression Infectious Medical History: Reports: Hx Hepatitis Past Surgical History: Reports: Hx Cardiac Catheterization, Hx Cardiac Surgery - aortic valve replacement, Hx Cholecystectomy, Hx Gynecologic Surgery - fibroids, Hx Hysterectomy, Hx Kidney (Renal Surgery) - biopsies, Hx Orthopedic Surgery - right elbow, Hx Tonsillectomy, Hx Vascular Surgery - RIGHT FOREARM AV FISTULA - Immunizations Immunizations up to date: Yes Hx Diphtheria, Pertussis, Tetanus Vaccination: Yes Hx Pneumococcal Vaccination: 12/27/07 Review of Systems - Review of Systems Notes: REVIEW OF SYSTEMS: CONSTITUTIONAL: -fevers, -chills EENT: -eye pain, -difficulty swallowing, -nasal congestion CARDIOVASCULAR: -chest pain, -syncope. RESPIRATORY: -cough, -SOB GASTROINTESTINAL: -abdominal pain, -nausea, -vomiting, -diarrhea MUSCULOSKELETAL: -back pain, -neck pain, +bleed from AV site SKIN: -rash or skin lesions. HEMATOLOGIC: -easy bruising or bleeding. LYMPHATIC: -swollen, enlarged glands. NEUROLOGICAL: -altered mental status or loss of consciousness, -headache, - neurologic symptoms PSYCHIATRIC: -anxiety, -depression. ALL OTHER SYSTEMS REVIEWED AND NEGATIVE. Physical Exam - Vital signs Vitals: Temp Pulse Resp BP Pulse Ox 98.9 F 64 20 180/47 H 97 07/09/17 17:32 07/09/17 17:32 07/09/17 17:32 07/09/17 17:32 07/09/17 17:32 - Notes Notes: PHYSICAL EXAMINATION: GENERAL: Well-appearing, well-nourished and in no acute distress. HEAD: Atraumatic, normocephalic. EYES: Pupils equal round and reactive to light, extraocular movements intact, sclera anicteric, conjunctiva are normal. ENT: nares patent, oropharynx clear without exudates. Moist mucous membranes. NECK: Normal range of motion, supple without lymphadenopathy LUNGS: Breath sounds clear to auscultation bilaterally and equal. No wheezes rales or rhonchi. HEART: Regular rate and rhythm without murmurs ABDOMEN: Soft, nontender, normoactive bowel sounds. No guarding, no rebound. No masses appreciated. EXTREMITIES: Pinpoint puncture wound over LUE Av fistula with a very small ooze. Dressing in place with gauze that is not soaked with blood. Normal range of motion, no pitting or edema. No cyanosis. NEUROLOGICAL: Cranial nerves grossly intact. Normal speech, normal gait. Normal sensory and motor exams. PSYCH: Normal mood, normal affect. SKIN: Warm, Dry, normal turgor, no rashes or lesions noted. Course - Re-evaluation Re-evalutation: Patient with a very small ooze from a pinpoint area where her fistula was accessed for dialysis today. She does not appear to be hemorrhaging and her blood pressure is actually elevated today. After TXA-soaked 4 x 4's were placed , the oozing stopped and a pressure dressing was placed. Because she has a mechanical heart valve, told her that she should continue her Coumadin and follow with her primary care physician and vascular surgeon for further recommendation and treatment. - Vital Signs Vital signs: Temp Pulse Resp BP Pulse Ox 98.5 F 66 14 177/60 H 98 07/09/17 20:44 07/09/17 20:44 07/09/17 20:44 07/09/17 20:44 07/09/17 20:44 Discharge - Discharge Clinical Impression: Fistula bleed Malfunction of arteriovenous dialysis fistula Qualifiers: Encounter type: initial encounter Qualified Code(s): T82.590A - Other mechanical complication of surgically created arteriovenous fistula, initial encounter Condition: Stable Disposition: HOME, SELF-CARE Additional Instructions: Keep the pressure dressing in place soaked with the medication to stop the bleeding. Continue your Coumadin follow-up with Dr. Nelson. Forms: Elevated Blood Pressure Referrals: ALLI GREENFIELD MD [Primary Care Provider] - Follow up as needed ASHA NELSON MD [ACTIVE STAFF] - Follow up as needed
[2017-07-09 20:50] VITALS: BP 177/60
== END 2017-07-09 20:49 | disposition home or self-care (01) ==
LOC: ER 17:24
DX: T82.590A Other mechanical complication of surgically created arteriovenous fistula, initial encounter (principal); X58.XXXA Exposure to other specified factors, initial encounter; E11.22 Type 2 diabetes mellitus with diabetic chronic kidney disease; I12.0 Hypertensive chronic kidney disease with stage 5 chronic kidney disease or end stage renal disease; N18.6 End stage renal disease; Z99.2 Dependence on renal dialysis; Z95.2 Presence of prosthetic heart valve; Z90.49 Acquired absence of other specified parts of digestive tract; Z90.710 Acquired absence of both cervix and uterus; Z88.6 Allergy status to analgesic agent; Z79.02 Long term (current) use of antithrombotics/antiplatelets
CPT/HCPCS: 99283; J3490

== ENCOUNTER 2017-07-11 19:44 | Emergency (ER) | payer MEDICARE, BC ==
[2017-07-11 20:58] LABS: ALANINE AMINOTRANSFERASE 69 U/L (9-52); ALBUMIN 4.1 g/dL (3.5-5.0); ALKALINE PHOSPHATASE 146 U/L (38-126); ANION GAP 15 (5-19); ASPARTATE AMINO TRANSFERASE 66 U/L (14-36); BILIRUBIN,DIRECT 0.8 mg/dL (0.0-0.4); BILIRUBIN,TOTAL 0.8 mg/dL (0.2-1.3); BLOOD UREA NITROGEN 61 mg/dL (7-20); CALCIUM 7.9 mg/dL (8.4-10.2); CARBON DIOXIDE 29 mmol/L (22-30); CHLORIDE 93 mmol/L (98-107); GLUCOSE 120 mg/dL (75-110); LIPASE 130.3 U/L (23-300); POTASSIUM 4.6 mmol/L (3.6-5.0); SODIUM 136.6 mmol/L (137-145); TOTAL PROTEIN 7.5 g/dL (6.3-8.2)
[2017-07-11 21:01] LABS: ABSOLUTE LYMPHOCYTES (AUTO) 0.8 10^3/uL (0.5-4.7); ABSOLUTE MONOCYTES (AUTO) 0.3 10^3/uL (0.1-1.4); ABSOLUTE NEUT (AUTO) 1.9 10^3/uL (1.7-8.2); BASOPHILS % (AUTO) 0.9 % (0-2); HEMATOCRIT 35.3 % (36.0-47.0); HEMOGLOBIN 11.7 g/dL (12.0-15.5); LYMPHOCYTES % (AUTO) 26.9 % (13-45); MEAN CORPUSCULAR HEMOGLOBIN 31.6 pg (27.0-33.4); MEAN CORPUSCULAR HGB CONC 33.3 g/dL (32.0-36.0); MEAN CORPUSCULAR VOLUME 95 fl (80-97); MONOCYTES % (AUTO) 10.7 % (3-13); RED BLOOD COUNT 3.71 10^6/uL (3.72-5.28); RED CELL DISTRIBUTION WIDTH 16.4 % (11.5-14.0); SEGMENTED NEUTROPHILS % (AUTO) 61.5 % (42-78); TOTAL CELLS COUNTED % (AUTO) 100 %; WHITE BLOOD COUNT 3.1 10^3/uL (4.0-10.5)
[2017-07-11] MEDS ORDERED: MORPHINE SULFATE 10 MG/ML INJ IV PRN (21:18)
[2017-07-11] MEDS ORDERED: DIAZEPAM INJ 10 MG/2 ML DISP.SYRIN IV ONE (21:18)
[2017-07-11 21:19] LABS: PLATELET COUNT 83 10^3/uL (150-450)
--- NOTE | 2017-07-11 21:20 | ER Document Report ---
ED General - General Chief Complaint: Abdominal Pain Stated Complaint: ABDOMINAL PAIN Time Seen by Provider: 07/11/17 20:18 Notes: Patient is a 61 year old female with a past medical history of chronic kidney disease with dialysis dependence who presents with several days of generalized abdominal pain. Patient describes it as a cramping, aching, throbbing pain to mostly to her upper abdomen that wraps around to her left flank. Patient is a somewhat difficult historian, initially stating the pain has been there for "a very long time" but then telling me that it has been more acute in the last several days. Nothing seems to improve or worsen her pain. She has not seen her primary doctor regarding this concern. She denies any associated vomiting or diarrhea. She does not make urine. She has a past abdominal surgical history of a cholecystectomy. She denies any associated chest pain or shortness of breath. TRAVEL OUTSIDE OF THE [place] IN LAST 30 DAYS: No COUNTRY TRAVELED TO/FROM: [facility] - Related Data Allergies/Adverse Reactions: amlodipine besylate [From Norvasc] Allergy (Severe, Verified 07/07/17 01:53) Hives diphenhydramine HCl [From Benadryl] Allergy (Severe, Verified 07/07/17 01:53) Hives heparin (porcine) [Heparin,Porcine] Allergy (Severe, Verified 07/07/17 01:53) Fever losartan [Losartan] Allergy (Severe, Verified 07/07/17 01:53) unsure Pork/Porcine Containing Products [Pork/Porcine Product Derivatives] Allergy ( Severe, Verified 07/07/17 01:53) formoterol fumarate [From Dulera] Adverse Reaction (Severe, Verified 07/07/17 01 :53) Tachycardia mometasone furoate [From Dulera] Adverse Reaction (Severe, Verified 07/07/17 01: 53) Tachycardia ppd Allergy (Severe, Uncoded 02/21/17 09:01) converter Past Medical History - General Information source: Patient - Social History Smoking Status: Former Smoker Chew tobacco use (# tins/day): No Frequency of alcohol use: None Drug Abuse: None Lives with: Alone Family History: Reviewed & Not Pertinent Patient has suicidal ideation: No Patient has homicidal ideation: No - Past Medical History Cardiac Medical History: Reports: Hx Hypertension, Hx Heart Murmur - AORTIC STENOSIS Denies: Hx Coronary Artery Disease - HEART CATH 7/17 CLEAR, Hx Heart Attack Pulmonary Medical History: Reports: Hx Asthma - SEASONAL ALLERGIES TRIGGER ASTHMA, Hx COPD Denies: Hx Bronchitis, Hx Pneumonia Neurological Medical History: Denies: Hx Cerebrovascular Accident, Hx Seizures Endocrine Medical History: Reports: Hx Diabetes Mellitus Type 2, Hx Hypothyroidism Renal/ Medical History: Reports: Hx End Stage Renal Disease, Hx Hemodialysis, Hx Renal Insufficiency. Denies: Hx Peritoneal Dialysis GI Medical History: Reports: Hx Hepatitis Musculoskeltal Medical History: Reports Hx Arthritis - ALL OVER Psychiatric Medical History: Reports: Hx Anxiety, Hx Depression Infectious Medical History: Reports: Hx Hepatitis Past Surgical History: Reports: Hx Cardiac Catheterization, Hx Cardiac Surgery - aortic valve replacement, Hx Cholecystectomy, Hx Gynecologic Surgery - fibroids, Hx Hysterectomy, Hx Kidney (Renal Surgery) - biopsies, Hx Orthopedic Surgery - right elbow, Hx Tonsillectomy, Hx Vascular Surgery - RIGHT FOREARM AV FISTULA - Immunizations Immunizations up to date: Yes Hx Diphtheria, Pertussis, Tetanus Vaccination: Yes Hx Pneumococcal Vaccination: 12/27/07 Review of Systems - Review of Systems Notes: Constitutional: Negative for fever. HENT: Negative for sore throat. Eyes: Negative for visual changes. Cardiovascular: Negative for chest pain. Respiratory: Negative for shortness of breath. Gastrointestinal: Positive for abdominal pain Genitourinary: Negative for dysuria. Musculoskeletal: Negative for back pain. Skin: Negative for rash. Neurological: Negative for headaches, weakness or numbness. 10 point ROS negative except as marked above and in HPI. Physical Exam - Vital signs Vitals: Pulse Ox 100 07/11/17 20:14 Interpretation: Hypertensive Notes: PHYSICAL EXAMINATION: GENERAL: Well-appearing, well-nourished and in no acute distress. HEAD: Atraumatic, normocephalic. EYES: Pupils equal round and reactive to light, extraocular movements intact, sclera anicteric, conjunctiva are normal. ENT: nares patent, oropharynx clear without exudates. Moderately dry mucous membranes. NECK: Normal range of motion, supple without lymphadenopathy LUNGS: Breath sounds clear to auscultation bilaterally and equal. No wheezes rales or rhonchi. HEART: Regular rate and rhythm without murmurs ABDOMEN: Soft, minimal tenderness to the epigastrium and left upper quadrant but no other localized areas of tenderness, normoactive bowel sounds. No guarding, no rebound. No masses appreciated. EXTREMITIES: Normal range of motion, no pitting or edema. No cyanosis. NEUROLOGICAL: No focal neurological deficits. Moves all extremities spontaneously and on command. PSYCH: Anxious SKIN: Warm, Dry, normal turgor, no rashes or lesions noted. Course - Re-evaluation Re-evalutation: 07/11/17 21:19 Patient presents with generalized abdominal pain that she states has been ongoing for quite some time but much worse over the last 24 hours. Patient has pain out of proportion to exam on evaluation and has a known history of atherosclerotic disease. She is however anticoagulated on warfarin. Concerns include possible mesenteric ischemia, less likely acute aortic pathology. Patient is a 30 status post cholecystectomy. Lipase is unremarkable making acute pink otitis highly unlikely. Patient has not had any vomiting or diarrhea to suggest an acute colitis. Patient could also be having abdominal pain secondary to constipation which she does report she has a history of. Will proceed with CT of the abdomen pelvis, reassess the patient. 07/11/17 22:34 Labs without any acute findings although do show chronic kidney disease which is expected in this context. CT the abdomen pelvis does not show any evidence of acute mesenteric ischemia or bowel infarction. Patient's pain has significantly improved. I have asked that she follow-up with her primary care doctor regarding her multiple chronic concerns. At this time will discharge with return precautions and follow-up recommendations. Verbal discharge instructions given a the bedside and opportunity for questions given. Medication warnings reviewed. Patient is in agreement with this plan and has verbalized understanding of return precautions and the need for primary care follow-up in the next 24-72 hours. - Vital Signs Vital signs: Temp Pulse Resp BP Pulse Ox 19 156/51 H 100 07/11/17 23:05 07/11/17 23:05 07/11/17 23:05 - Laboratory Result Diagrams: 07/11/17 20:25 07/11/17 20:25 Laboratory results interpreted by me: 07/11/17 07/11/17 20:25 20:25 WBC 3.1 L RBC 3.71 L Hgb 11.7 L Hct 35.3 L RDW 16.4 H Plt Count 83 L Sodium 136.6 L Chloride 93 L BUN 61 H Creatinine 8.21 H Est GFR ( Amer) 6 L Est GFR (Non-Af Amer) 5 L Glucose 120 H Calcium 7.9 L Direct Bilirubin 0.8 H AST 66 H ALT 69 H Alkaline Phosphatase 146 H - Diagnostic Test Radiology reviewed: Reports reviewed Discharge - Discharge Clinical Impression: Generalized abdominal pain, Chronic anticoagulation, Essential hypertension, Dependence on renal dialysis Condition: Stable Disposition: HOME, SELF-CARE Additional Instructions: You have been seen in the Emergency Department (ED) for abdominal pain. Your evaluation did not identify a clear cause of your symptoms but was generally reassuring. Please follow up with your doctor as soon as possible regarding today's emergent visit and the symptoms that are bothering you. Return to the ED if your abdominal pain worsens or fails to improve, you develop bloody vomiting, bloody diarrhea, you are unable to tolerate fluids due to vomiting, fever greater than 101, or other symptoms that concern you. Referrals: ALLI GREENFIELD MD [Primary Care Provider] - Follow up as needed
--- NOTE | 2017-07-11 22:25 | RADIOLOGY REPORT (SQ) ---
EXAM DESCRIPTION: CT ABD/PELVIS WITH IV ONLY COMPLETED DATE/TIME: 07/11/2017 10:02 pm REASON FOR STUDY: eval mesenteric ischemia COMPARISON: None. TECHNIQUE: CT scan of the abdomen and pelvis performed using helical scanning technique with dynamic intravenous contrast injection. No oral contrast. Images reviewed with lung, soft tissue, and bone windows. Reconstructed coronal and sagittal MPR images reviewed. Delayed images for evaluation of the urinary system also acquired. All images stored on PACS. All CT scanners at this facility use dose modulation, iterative reconstruction, and/or weight based d osing when appropriate to reduce radiation dose to as low as reasonably achievable (ALARA). [facility]: Dose Right [facility]: CareDose [facility]: Dose Right [facility]: Teradose 4D [facility]: Playdemic CONTRAST TYPE AND DOSE: contrast/concentration: Isovue 370.00 mg/ml; Total Contrast Delivered: 100.0 ml; Total Saline Delivered: 100.3 ml RENAL FUNCTION: Not given. Dialysis patient. RADIATION DOSE: CT Rad equipment meets quality standard of care and radiation dose reduction techniq ues were employed. CTDIvol: 20.4 - 20.4 mGy. DLP: 2145 mGy-cm.. LIMITATIONS: None. FINDINGS: LOWER CHEST: No significant findings. No nodules or infiltrates. LIVER: Normal size. No masses. No dilated ducts. SPLEEN: Splenomegaly. PANCREAS: No masses. No significant calcifications. No adjacent inflammation or peripancreatic fluid collections. Pancreatic duct not dilated. GALLBLADDER: There appears to be a contracted gallbladder with stones. ADRENAL GLANDS: No significant masses or asymmetry. RIGHT KIDNEY AND URETER: Small kidney with multiple intrarenal calculi and numerous small cortical cy sts. LEFT KIDNEY AND URETER: Small kidney with multiple intrarenal calculi and numerous small cortical cys ts. AORTA AND VESSELS: No aneurysm or dissection. Atherosclerosis is present. There is considerable ath erosclerosis in the splenic artery and in the superior mesenteric and inferior mesenteric arteries. Renal artery atherosclerosis is present as well. RETROPERITONEUM: No retroperitoneal adenopathy, hemorrhage or masses. BOWEL AND PERITONEAL CAVITY: No masses or inflammatory changes. No free fluid or peritoneal masses. No significant ischemic changes APPENDIX: Surgically absent. PELVIS: Calcified uterine fibroids are present. ABDOMINAL WALL: No masses. No hernias. BONES: Mild scoliosis, degenerative disc changes in the lumbar spine. OTHER: No other significant finding. IMPRESSION: 1. There is extensive atherosclerosis, but no significant bowel ischemia is appreciated . 2. Marked chronic changes in both kidneys. 3. Calcified uterine fibroids. 4. Scoliosis, degenerative lumbar disc changes. 5. Splenomegaly. 6. There appears to be a contracted gallbladder with stones. TECHNICAL DOCUMENTATION: JOB ID: [id number] Quality ID # [id number]: Final reports with documentation of one or more dose reduction techniques (e.g., Au tomated exposure control, adjustment of the mA and/or kV according to patient size, use of iterative reconstruction technique) 2010 [employer]- All Rights Reserved Reading location - IP/workstation name: [email or web address]
[2017-07-11 23:06] VITALS: BP 156/51
== END 2017-07-11 23:24 | disposition home or self-care (01) ==
LOC: ER 19:44
DX: R10.84 Generalized abdominal pain (principal); I10 Essential (primary) hypertension; E11.22 Type 2 diabetes mellitus with diabetic chronic kidney disease; I12.0 Hypertensive chronic kidney disease with stage 5 chronic kidney disease or end stage renal disease; N18.6 End stage renal disease; R79.1 Abnormal coagulation profile; Z99.2 Dependence on renal dialysis; Z95.2 Presence of prosthetic heart valve; Z90.49 Acquired absence of other specified parts of digestive tract
CPT/HCPCS: 99285; 96374; 36415; 83690; 85025; 80053; 74177; J3360

== ENCOUNTER 2017-07-18 05:38 | Outpatient (CLI) | payer MEDICARE, BC ==
[~2017-07-18 05:38] MED LIST: DIAZEPAM 5 MG TABLET PO PRN
[2017-07-18 07:18] LABS: ABSOLUTE LYMPHOCYTES (AUTO) 0.6 10^3/uL (0.5-4.7); ABSOLUTE MONOCYTES (AUTO) 0.4 10^3/uL (0.1-1.4); ABSOLUTE NEUT (AUTO) 2.3 10^3/uL (1.7-8.2); BASOPHILS % (AUTO) 0.6 % (0-2); HEMATOCRIT 32.9 % (36.0-47.0); HEMOGLOBIN 11.1 g/dL (12.0-15.5); LYMPHOCYTES % (AUTO) 18.2 % (13-45); MEAN CORPUSCULAR HGB CONC 33.8 g/dL (32.0-36.0); MEAN CORPUSCULAR VOLUME 95 fl (80-97); RED BLOOD COUNT 3.47 10^6/uL (3.72-5.28); SEGMENTED NEUTROPHILS % (AUTO) 68.2 % (42-78); TOTAL CELLS COUNTED % (AUTO) 100 %; WHITE BLOOD COUNT 3.4 10^3/uL (4.0-10.5)
[2017-07-18 07:23] LABS: INTERNATIONAL RATION (INR) 4.43; PROTHROMBIN TIME 44.2 SEC (11.4-15.4)
[2017-07-18 07:24] LABS: PARTIAL THROMBOPLASTIN TIME 52.3 SEC (23.5-35.8)
[2017-07-18 07:39] LABS: ANION GAP 16 (5-19); BLOOD UREA NITROGEN 47 mg/dL (7-20); CALCIUM 7.9 mg/dL (8.4-10.2); CARBON DIOXIDE 31 mmol/L (22-30); CHLORIDE 94 mmol/L (98-107); GLUCOSE 127 mg/dL (75-110); POTASSIUM 4.6 mmol/L (3.6-5.0); SODIUM 140.9 mmol/L (137-145)
[2017-07-18 07:47] VITALS: BP 156/58
[2017-07-18 07:58] LABS: PLATELET COUNT 96 10^3/uL (150-450)
== END 2017-07-18 09:40 | disposition home or self-care (01) ==
LOC: CCL 05:38 → EDSTATUS 10:00
PROVIDERS: ATTEND Surgery
DX: T82.858A Stenosis of other vascular prosthetic devices, implants and grafts, initial encounter (principal); Z79.01 Long term (current) use of anticoagulants; Z79.899 Other long term (current) drug therapy
CPT/HCPCS: 36415; 85025; 85610; 85730; 80048; A9270

== ENCOUNTER 2017-08-28 14:58 | Emergency (ER) | payer MEDICARE, BC ==
--- NOTE | 2017-08-28 15:52 | ER Document Report ---
ED Medical Screen (RME) - General Chief Complaint: Arm Problem Stated Complaint: BLEEDING FROM ARM Time Seen by Provider: 08/28/17 15:39 Mode of Arrival: Ambulatory Information source: Patient Notes: 62 yro ld female presents with complaints of bleeding from her dialysis right arm fistula. pt denies any other injuries, pt is on coumadin and inr was 5.5 I have greeted and performed a rapid initial assessment of this patient. A comprehensive ED assessment and evaluation of the patient, analysis of test results and completion of the medical decision making process will be conducted by additional ED providers. PHYSICAL EXAMINATION: GENERAL: Well-appearing, well-nourished and in no acute distress. HEAD: Atraumatic, normocephalic. EYES: Pupils equal round extraocular movements intact, conjunctiva are normal. ENT: Nares patent NECK: Normal range of motion LUNGS: No respiratory distress Musculoskeletal: Normal range of motion NEUROLOGICAL: Normal speech, normal gait. PSYCH: Normal mood, normal affect. SKIN: right forearm is noted to be wrapped in dressing, thrill noted. TRAVEL OUTSIDE OF THE [place] IN LAST 30 DAYS: No COUNTRY TRAVELED TO/FROM: [facility] - Related Data Allergies/Adverse Reactions: amlodipine besylate [From Norvasc] Allergy (Severe, Verified 07/18/17 07:47) Hives diphenhydramine HCl [From Benadryl] Allergy (Severe, Verified 07/18/17 07:47) Hives heparin (porcine) [Heparin,Porcine] Allergy (Severe, Verified 07/18/17 07:47) Fever losartan [Losartan] Allergy (Severe, Verified 07/18/17 07:47) unsure Pork/Porcine Containing Products [Pork/Porcine Product Derivatives] Allergy ( Severe, Verified 07/18/17 07:47) formoterol fumarate [From Dulera] Adverse Reaction (Severe, Verified 07/18/17 07 :47) Tachycardia mometasone furoate [From Dulera] Adverse Reaction (Severe, Verified 07/18/17 07: 47) Tachycardia ppd Allergy (Severe, Uncoded 02/21/17 09:01) converter Past Medical History - Social History Chew tobacco use (# tins/day): No Frequency of alcohol use: None Drug Abuse: None - Past Medical History Cardiac Medical History: Reports: Hx Hypertension, Hx Heart Murmur - AORTIC STENOSIS Denies: Hx Coronary Artery Disease - HEART CATH 10/11 CLEAR, Hx Heart Attack Pulmonary Medical History: Reports: Hx Asthma - SEASONAL ALLERGIES TRIGGER ASTHMA, Hx COPD Denies: Hx Bronchitis, Hx Pneumonia Neurological Medical History: Denies: Hx Cerebrovascular Accident, Hx Seizures Endocrine Medical History: Reports: Hx Diabetes Mellitus Type 2, Hx Hypothyroidism Renal/ Medical History: Reports: Hx End Stage Renal Disease, Hx Hemodialysis, Hx Renal Insufficiency. Denies: Hx Peritoneal Dialysis GI Medical History: Reports: Hx Hepatitis Musculoskeltal Medical History: Reports Hx Arthritis - ALL OVER Psychiatric Medical History: Reports: Hx Anxiety, Hx Depression Infectious Medical History: Reports: Hx Hepatitis Past Surgical History: Reports: Hx Cardiac Catheterization, Hx Cardiac Surgery - aortic valve replacement, Hx Cholecystectomy, Hx Gynecologic Surgery - fibroids, Hx Hysterectomy, Hx Kidney (Renal Surgery) - biopsies, Hx Orthopedic Surgery - right elbow, Hx Tonsillectomy, Hx Vascular Surgery - RIGHT FOREARM AV FISTULA - Immunizations Immunizations up to date: Yes Hx Diphtheria, Pertussis, Tetanus Vaccination: Yes History of Influenza Vaccine for 12/2016 - 05/2017 Season: Unknown Physical Exam - Vital signs Vitals: Temp Pulse Resp BP Pulse Ox 98.8 F 72 18 151/58 H 98 08/28/17 15:05 08/28/17 15:05 08/28/17 15:05 08/28/17 15:05 08/28/17 15:05 Course - Vital Signs Vital signs: Temp Pulse Resp BP Pulse Ox 98.8 F 72 18 151/58 H 98 08/28/17 15:05 08/28/17 15:05 08/28/17 15:05 08/28/17 15:05 08/28/17 15:05 Doctor's Discharge - Discharge Referrals: ALLI GREENFIELD MD [Primary Care Provider] - Follow up as needed
--- NOTE | 2017-08-28 16:05 | ER Document Report ---
ED General - General Chief Complaint: Arm Problem Stated Complaint: BLEEDING FROM ARM Time Seen by Provider: 08/28/17 15:39 Mode of Arrival: Ambulatory Information source: Patient Notes: 62-year-old female with dialysis shunt in the right upper extremity presents with complaints of bleeding for the past few days. Patient notes that she had dialysis performed and since then for the past 3 days there has been bleeding, denies any other concerns Patient had similar symptoms in the past requiring could clot, patient notes her INR was 5.5 yesterday she stopped her Coumadin TRAVEL OUTSIDE OF THE [place] IN LAST 30 DAYS: No COUNTRY TRAVELED TO/FROM: [facility] - [facility] Onset: Other - 3 days Onset/Duration: Intermittent Quality of pain: No pain Severity: None Pain Level: Denies Associated symptoms: None Exacerbated by: Denies Relieved by: Denies Similar symptoms previously: No Recently seen / treated by doctor: No - Related Data Allergies/Adverse Reactions: amlodipine besylate [From Norvasc] Allergy (Severe, Verified 08/28/17 16:29) Hives diphenhydramine HCl [From Benadryl] Allergy (Severe, Verified 08/28/17 16:29) Hives heparin (porcine) [Heparin,Porcine] Allergy (Severe, Verified 08/28/17 16:29) Fever losartan [Losartan] Allergy (Severe, Verified 08/28/17 16:29) unsure Pork/Porcine Containing Products [Pork/Porcine Product Derivatives] Allergy ( Severe, Verified 08/28/17 16:29) formoterol fumarate [From Dulera] Adverse Reaction (Severe, Verified 08/28/17 16 :29) Tachycardia mometasone furoate [From Dulera] Adverse Reaction (Severe, Verified 08/28/17 16: 29) Tachycardia ppd Allergy (Severe, Uncoded 08/28/17 16:29) converter Past Medical History - General Information source: Patient - Social History Smoking Status: Never Smoker Cigarette use (# per day): No Chew tobacco use (# tins/day): No Smoking Education Provided: No Frequency of alcohol use: None Drug Abuse: None Family History: Reviewed & Not Pertinent Patient has suicidal ideation: No Patient has homicidal ideation: No - Past Medical History Cardiac Medical History: Reports: Hx Hypertension, Hx Heart Murmur - AORTIC STENOSIS Denies: Hx Coronary Artery Disease - HEART CATH 10/11 CLEAR, Hx Heart Attack Pulmonary Medical History: Reports: Hx Asthma - SEASONAL ALLERGIES TRIGGER ASTHMA, Hx COPD Denies: Hx Bronchitis, Hx Pneumonia Neurological Medical History: Denies: Hx Cerebrovascular Accident, Hx Seizures Endocrine Medical History: Reports: Hx Diabetes Mellitus Type 2, Hx Hypothyroidism Renal/ Medical History: Reports: Hx End Stage Renal Disease, Hx Hemodialysis, Hx Renal Insufficiency. Denies: Hx Peritoneal Dialysis GI Medical History: Reports: Hx Hepatitis Musculoskeltal Medical History: Reports Hx Arthritis - ALL OVER Psychiatric Medical History: Reports: Hx Anxiety, Hx Depression Infectious Medical History: Reports: Hx Hepatitis Past Surgical History: Reports: Hx Cardiac Catheterization, Hx Cardiac Surgery - aortic valve replacement, Hx Cholecystectomy, Hx Gynecologic Surgery - fibroids, Hx Hysterectomy, Hx Kidney (Renal Surgery) - biopsies, Hx Orthopedic Surgery - right elbow, Hx Tonsillectomy, Hx Vascular Surgery - RIGHT FOREARM AV FISTULA - Immunizations Immunizations up to date: Yes Hx Diphtheria, Pertussis, Tetanus Vaccination: Yes Hx Pneumococcal Vaccination: 12/27/07 Review of Systems - Review of Systems Notes: REVIEW OF SYSTEMS: CONSTITUTIONAL : Denies fever, chills, or sweats. Denies recent illness. EENT: Denies eye, ear, throat, or mouth pain or symptoms. Denies nasal or sinus congestion or discharge. Denies throat, tongue, or mouth swelling or difficulty swallowing. CARDIOVASCULAR: Denies chest pain. Denies palpitations or racing or irregular heart beat. Denies ankle edema. RESPIRATORY: Denies cough, cold, or chest congestion. Denies shortness of breath, difficulty breathing, or wheezing. GASTROINTESTINAL: Denies abdominal pain or distention. Denies nausea, vomiting , or diarrhea. Denies blood in vomitus, stools, or per rectum. Denies black, tarry stools. Denies constipation. GENITOURINARY: Denies difficulty urinating, painful urination, burning, frequency, blood in urine, or discharge. FEMALE GENITOURINARY: Denies vaginal bleeding, heavy or abnormal periods, irregular periods. Denies vaginal discharge or odor. MUSCULOSKELETAL: Denies back or neck pain or stiffness. Denies joint pain or swelling. SKIN: admits to bleeding HEMATOLOGIC : easy bleeding LYMPHATIC: Denies swollen, enlarged glands. NEUROLOGICAL: Denies confusion or altered mental status. Denies passing out or loss of consciousness. Denies dizziness or lightheadedness. Denies headache. Denies weakness or paralysis or loss of use of either side. Denies problems with gait or speech. Denies sensory loss, numbness, or tingling. Denies seizures. PSYCHIATRIC: Denies anxiety or stress. Denies depression, suicidal ideation, or homicidal ideation. ALL OTHER SYSTEMS REVIEWED AND NEGATIVE. PHYSICAL EXAMINATION: GENERAL: Well-appearing, well-nourished and in no acute distress. HEAD: Atraumatic, normocephalic. EYES: Pupils equal round and reactive to light, extraocular movements intact, conjunctiva are normal. ENT: Nares patent, oropharynx clear without exudates. Moist mucous membranes. NECK: Normal range of motion, supple without lymphadenopathy LUNGS: Breath sounds clear to auscultation bilaterally and equal. No wheezes rales or rhonchi. HEART: Regular rate and rhythm without murmurs ABDOMEN: Soft, nontender, nondistended abdomen. No guarding, no rebound. No masses appreciated. Female : deferred Musculoskeletal: Normal range of motion, no pitting or edema. No cyanosis. NEUROLOGICAL: Cranial nerves grossly intact. Normal speech, normal gait. Normal sensory, motor exams PSYCH: Normal mood, normal affect. SKIN: thrill noted, vaginal bleeding 3 spots Dictation was performed using [employer] voice recognition software Physical Exam - Vital signs Vitals: Temp Pulse Resp BP Pulse Ox 98.8 F 72 18 151/58 H 98 08/28/17 15:05 08/28/17 15:05 08/28/17 15:05 08/28/17 15:05 08/28/17 15:05 Course - Re-evaluation Re-evalutation: 08/28/17 16:05 DR spaulding consulted for evaluation 08/28/17 18:13 He evaluated the patient quick clot placed, pt watched for an hour with no bleeding, will dc home with close follow up inr reevluated at 3.7 After performing a Medical Screening Examination, I estimate there is LOW risk for infection and continued bleeding thus I consider the discharge disposition reasonable. Also, there is no evidence or peritonitis, sepsis, or toxicity. I have reevaluated this patient multiple times and no significant life threatening changes are noted. The patient and I have discussed the diagnosis and risks, and we agree with discharging home with close follow-up with the understanding that symptoms and presentations can change. We also discussed returning to the Emergency Department immediately if new or worsening symptoms occur. We have discussed the symptoms which are most concerning (e.g., changing or worsening pain, fever, numbness, weakness, cool or painful digits) that necessitate immediate return. - Vital Signs Vital signs: Temp Pulse Resp BP Pulse Ox 98.3 F 70 18 174/63 H 99 08/28/17 16:58 08/28/17 16:58 08/28/17 15:05 08/28/17 16:58 08/28/17 16:58 - Laboratory Laboratory results interpreted by me: 08/28/17 16:00 PT 36.0 H Discharge - Discharge Clinical Impression: Bleeding from dialysis shunt Qualifiers: Encounter type: initial encounter Qualified Code(s): T82.838A - Hemorrhage due to vascular prosthetic devices, implants and grafts, initial encounter Condition: Stable Disposition: HOME, SELF-CARE Additional Instructions: Please return immediately if there are any other concerns Referrals: ALLI GREENFIELD MD [Primary Care Provider] - Follow up tomorrow
[2017-08-28 16:17] LABS: INTERNATIONAL RATION (INR) 3.41
[2017-08-28 16:59] VITALS: BP 174/63
== END 2017-08-28 17:10 | disposition home or self-care (01) ==
LOC: ER 14:58
DX: T82.838A Hemorrhage due to vascular prosthetic devices, implants and grafts, initial encounter (principal); X58.XXXA Exposure to other specified factors, initial encounter; I12.0 Hypertensive chronic kidney disease with stage 5 chronic kidney disease or end stage renal disease; N18.6 End stage renal disease; Z99.2 Dependence on renal dialysis; Z95.2 Presence of prosthetic heart valve
CPT/HCPCS: 36415; 85610; 99283

== ENCOUNTER 2017-09-05 07:47 | Day surgery (SDC) | payer MEDICARE, BC ==
--- NOTE | 2017-08-28 18:19 | PDOC CONSULTATION ---
Consultation Consult Date: 08/28/17 Consult reason:: bleeding from right arm dialysis AV fistula. 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 ASTHMA, Chronic Obstructive Pulmonary Disease (COPD) Denies: Bronchitis, Intubation, Pneumonia, Respiratory Failure, Sleep Apnea Neurological Medical History: Denies: Seizures Endocrine Medical History: Reports: Diabetes Mellitus Type 2, Hypothyroidism Renal/ Medical History: Reports: End Stage Renal Disease Malignancy Medical History: Denies: Bone Cancer, Brain Cancer, Breast Cancer, Cervical Cancer, Colorectal Cancer GI Medical History: Reports: Hepatitis Denies: Ulcerative Colitis Musculoskeltal Medical History: Reports: Arthritis - ALL OVER Psychiatric Medical History: Reports: Depression Hematology: Reports: Anemia Past Surgical History Past Surgical History: Reports: Cardiac Catheterization, Cholecystectomy, Hysterectomy, Orthopedic Surgery - right elbow, Tonsillectomy, Vascular Surgery - RIGHT FOREARM AV FISTULA Aortic valve replacement on coumadin since Social History Smoking Status: Unknown if Ever Smoked Family History Family History: Reviewed & Not Pertinent Parental Family History Reviewed: Yes Children Family History Reviewed: No Sibling(s) Family History Reviewed.: No Medication/Allergy Home Medications: Carvedilol [Coreg 25 mg Tablet] 1 tab PO Q12 03/22/13 Albuterol Sulfate [Proventil 0.5% Neb 2.5 mg/0.5 ml Vial.neb] 2 puff IN Q4H PRN 02/03/15 Hydralazine HCl 100 mg PO TID 02/03/15 Insulin Glargine,Hum.rec.anlog [Lantus Insulin 100 Unit/mL] 7 unit SUBCUT QHS Insulin Lispro [Humalog Insulin (Lispro) 100 unit/mL] 0 unit SUBCUT .SLD SCALE 02/03/15 Lorazepam 2 mg PO QHS 02/03/15 Lubiprostone [Amitiza 24 Mcg Capsule] 24 mcg PO DAILY PRN 02/03/15 Omeprazole [Prilosec] 20 mg PO DAILY 02/03/15 Ondansetron [Zofran Odt 4 mg Tablet] 1 - 2 tab PO Q4H #10 tab.rapdis 02/03/15 Sevelamer Carbonate [Renvela] 4 tab PO TID 02/03/15 Albuterol Sulfate [Albuterol Sulfate 2.5mg/3 mL] 1 vial IH Q4 PRN #30 vial 03/11 Aspirin 81 mg PO QHS 12/03/16 B Complex W-C No.20/Folic Acid [Nephrocaps Softgel] 1 mg PO DAILY 12/03/16 Cinacalcet HCl [Sensipar 30 mg Tablet] 30 mg PO QHS 12/03/16 Ergocalciferol (Vitamin D2) [Vitamin D2] 50,000 unit PO ASDIR 12/03/16 Gabapentin 100 mg PO TID 12/03/16 Levothyroxine Sodium [Synthroid] 137 mcg PO QAM 12/03/16 Oxycodone HCl 20 mg PO QID 12/03/16 Sertraline HCl [Zoloft] 100 mg PO DAILY 12/03/16 Cyclobenzaprine HCl [Flexeril 5 mg Tablet] 5 mg PO TID #15 tablet 12/17/16 Walker [Folding Walker] 1 each MC ASDIR PRN #1 each 12/17/16 Warfarin Sodium [Coumadin 1 mg Tablet] 3 mg PO DAILY 07/18/17 Allergies/Adverse Reactions: amlodipine besylate [From Norvasc] Allergy (Severe, Verified 08/28/17 16:29) Hives diphenhydramine HCl [From Benadryl] Allergy (Severe, Verified 08/28/17 16:29) Hives heparin (porcine) [Heparin,Porcine] Allergy (Severe, Verified 08/28/17 16:29) Fever losartan [Losartan] Allergy (Severe, Verified 08/28/17 16:29) unsure Pork/Porcine Containing Products [Pork/Porcine Product Derivatives] Allergy ( Severe, Verified 08/28/17 16:29) formoterol fumarate [From Dulera] Adverse Reaction (Severe, Verified 08/28/17 16 :29) Tachycardia mometasone furoate [From Dulera] Adverse Reaction (Severe, Verified 08/28/17 16: 29) Tachycardia ppd Allergy (Severe, Uncoded 08/28/17 16:29) converter Review of Systems Constitutional: PRESENT: other - no fever/chills Eyes: PRESENT: other - no visual/hearing changes Cardiovascular: PRESENT: other - no chest pains/cough Gastrointestinal: PRESENT: hematochezia, other - no pains Integumentary: PRESENT: other - bleeding on 3 areas of right arm AV Fistula Physical Exam General appearance: PRESENT: no acute distress Head exam: PRESENT: atraumatic Eye exam: PRESENT: conjunctiva pink Mouth exam: PRESENT: moist Neck exam: PRESENT: full ROM Respiratory exam: PRESENT: clear to auscultation nuno Cardiovascular exam: PRESENT: RRR Pulses: PRESENT: normal radial pulses Vascular exam: PRESENT: normal capillary refill GI/Abdominal exam: PRESENT: soft Rectal exam: PRESENT: deferred Extremities exam: PRESENT: other - Right arm AV fistula with 3 areas of oozing Neurological exam: PRESENT: alert, oriented to person, oriented to place, oriented to time, oriented to situation Psychiatric exam: PRESENT: appropriate affect Skin exam: PRESENT: normal color, warm Results Laboratory Results: INR 3.5 Last dose of coumadin last night. She will stop it tonight and tomorrw. For Tuesday Assessment & Plan - Time Time Spent: 30 to 50 Minutes - Plan Summary Plan Summary: Right AV fistula bleeding sites applied withHemostatic dressing and wrapped with Coban snuggly. Has palpable pulse right radial after placement of dressing. May remove dressing on HD Tuesday Scheduled for angioplasty right AV fistula by Dr ying next week according to patient.
[2017-09-05 09:15] LABS: HEMATOCRIT 32.2 % (36.0-47.0); HEMOGLOBIN 10.8 g/dL (12.0-15.5); MEAN CORPUSCULAR HEMOGLOBIN 33.1 pg (27.0-33.4); MEAN CORPUSCULAR HGB CONC 33.5 g/dL (32.0-36.0); MEAN CORPUSCULAR VOLUME 99 fl (80-97); PLATELET COUNT 108 10^3/uL (150-450); RED BLOOD COUNT 3.26 10^6/uL (3.72-5.28); RED CELL DISTRIBUTION WIDTH 16.5 % (11.5-14.0); WHITE BLOOD COUNT 3.2 10^3/uL (4.0-10.5)
[2017-09-05 09:31] LABS: INTERNATIONAL RATION (INR) 1.11; PROTHROMBIN TIME 14.9 SEC (11.4-15.4)
[2017-09-05 09:39] LABS: ANION GAP 15 (5-19); BLOOD UREA NITROGEN 63 mg/dL (7-20); CALCIUM 8.2 mg/dL (8.4-10.2); CARBON DIOXIDE 28 mmol/L (22-30); CHLORIDE 98 mmol/L (98-107); GLUCOSE 152 mg/dL (75-110); POTASSIUM 5.4 mmol/L (3.6-5.0); SODIUM 141.4 mmol/L (137-145)
[2017-09-05] MEDS ORDERED: OXYCODONE-ACETAMINOPHEN 5-325 MG TABLET ONE (09:58)
[2017-09-05] MEDS ORDERED: DIAZEPAM 5 MG TABLET ONE (09:59)
[2017-09-05] MEDS ORDERED: DIAZEPAM 5 MG TABLET PO ONE (10:00)
[2017-09-05] MEDS ORDERED: OXYCODONE-ACETAMINOPHEN 5-325 MG TABLET PO ONE (10:00)
[2017-09-05] MEDS ORDERED: MIDAZOLAM 2 MG/2 ML INJ ONE (10:05)
[2017-09-05] MEDS ORDERED: HEPARIN SOD (PORCINE) 5,000 UNIT/ML 1 ML SYRINGE ONE (10:05)
[2017-09-05] MEDS ORDERED: FENTANYL CITRATE INJ/PF 100 MCG/2 ML AMPUL ONE (10:05)
[2017-09-05] MEDS ORDERED: HEPARIN SODIUM,PORCINE/NS/PF 0 UNIT/0 ML RTUINJ IV ONE (10:24)
[2017-09-05] MEDS ORDERED: LIDOCAINE 0.5% INJ-PF (5 MG/ML) 50 ML SDV ONE (10:24)
[2017-09-05] MEDS ORDERED: ALTEPLASE INJ 2 MG VIAL (CATH CLEARANCE) ONE (10:26)
--- NOTE | 2017-09-05 12:56 | RADIOLOGY REPORT (SQ) ---
"EXAM DESCRIPTION: FISTULAGRAM W/PLASTY COMPLETED DATE/TIME: 09/05/2017 12:23 pm REASON FOR STUDY: T82.858A T82.858A STENOSIS OF OTHER VASCULAR PROSTH DEV/GRFT, INIT Z79.01 LONG T ERM (CURRENT) USE OF ANTICOAGULANTS COMPARISON: 12/06/2016 FLUOROSCOPY TIME: 5.4 minutes 71 digital radiographic images saved to PACS. TECHNIQUE: Intra-operative images acquired during surgical procedure to evaluate progress. NUMBER OF IMAGES: 71 images saved to pac's LIMITATIONS: None. FINDINGS: Intra procedural imaging and fluoro during evaluation and plasty of a right upper extremit y dialysis access by Dr. Nelson. Please see the operative report for further details IMPRESSION: Intra procedural imaging and fluoro COMMENT: Quality ID [id number]: Final reports for procedures using fluoroscopy that document radiation exp osure indices, or exposure time and number of fluorographic images (if radiation exposure indices are not available) Please consult full operative report of the attending physician for description of the procedure. TECHNICAL DOCUMENTATION: JOB ID: [id number] [employer] | [employer]- All Rights Reserved Reading location - IP/workstation name: [email or web address]"
[2017-09-05 13:21] VITALS: BP 122/60
--- NOTE | 2017-09-05 14:35 | Discharge Summary ---
Discharge Summary (SDC) - Discharge Final Diagnosis: #1 malfunctioning arteriovenous fistula right radiocephalic. 2. End-stage renal disease on hemodialysis. 3. Mechanical heart valve in place. 4. Hypertension. Condition: Stable Forms: ASU Anesthesia D/C Instruction, Discharge POC-Surgical Service Treatment or Instructions: Discharge home [after recovery per ASU criteria]. Diet , renal, as tolerated, when fully awake advance as tolerated. Activities within moderation encouraged. Follow up in my office by appointment in about [1 month]. Call for appointment. Leave wounds [covered], [keep clean and dry, until hemodialysis]. Hold of on school/work [until evaluation in office]. Meds per med rec. May shower [in 48 hrs], [try to keep operated area as dry as possible]. Referrals: ASHA SRIVASTAVA MD [ACTIVE STAFF] - 10/05/17 1:15 pm Discharge Diet: Other (Comments) - Renal. Respiratory Treatments at Home: Deep Breathing/Coughing Discharge Activity: Activity As Tolerated, No Driving, No Lifting Over 10 Pounds , No Lifting/Push/Pulling, Slowly Increase Activity, No tub bath Home Care Assistance: None Needed Report the Following to Your Physician Immediately: Shortness of Breath, Nausea , Vomiting, Increase in Pain, Fever over 101 Degrees, Unusual Bleeding, Redness , Swelling, Warmth, Increased Soreness, Drainage-Yellow, Drainage-Hunter, Drainage -Green, Increased Vaginal Bleed, Numbness, Tingling Sensation, Wheezing, IV Site Infection Signs
--- NOTE | 2017-09-05 14:46 | Operative Report ---
Operative Report DATE OF SURGERY: 09/05/17 PREOPERATIVE DIAGNOSIS: #1 malfunctioning arteriovenous fistula right radiocephalic. 2. End-stage renal disease on hemodialysis. 3. Mechanical heart valve in place. 4. Hypertension. POSTOPERATIVE DIAGNOSIS: #1 malfunctioning arteriovenous fistula right radiocephalic. 2. End-stage renal disease on hemodialysis. 3. Mechanical heart valve in place. 4. Hypertension. OPERATION: 1. Needle access into fistula. 2. Angioplasty of proximal fistula. 3. Angiogram and interpretation. 4. Balloon dilatation with drug- eluting balloon. SURGEON: ASHA REYES TEXTILE FINISHER: None. ANESTHESIA: Moderate Sedation TISSUE REMOVED OR ALTERED: Not applicable. COMPLICATIONS: None. ESTIMATED BLOOD LOSS: 2 mL. INTRAOPERATIVE FINDINGS: Of a well founded right forearm radiocephalic fistula. A good 10 cm segment easily available for access. Somewhat soft. Culprit lesion is the first 3 cm of the fistula which is tightly stenotic in a chain of lakes pattern. Estimated to be about 80% of the adjacent lumen. Corrected by angioplasty with a 5 mm balloon. Drug-eluting balloon utilized in order to reduce the recurrence of the site. Postprocedure the pulsation in the body of the fistula much more appropriate. PROCEDURE: PROCEDURE: After verifying the procedure and having obtained informed consent, the patient's right arm and forearm were prepared with Chlorhexidine and draped out with sterile linen. Local anesthesia infiltrated. Percutaneous access into the fistula ,[retrograde], obtained about [15 cm] from the arteriovenous anastomosis using a micro puncture needle followed by micro puncture wire and then a micro puncture catheter. . A 0.035 [place] wire was inserted, and over this, a 6 [place] short introducer was placed, this was followed by a [place] catheter. This was manipulated including use of a torque device into the southern ute radial artery. This was quite challenging and required up quite a bit of manipulation. Angiogram demonstrated the aforementioned findings. A 5 mm angioplasty balloon was now inserted over the culprit area and inflated using hand injections and a 3 mils syringe. This completely overcame to stenosis over a little dilatation of about 3 minutes aggregate. Angioplasty was now done at the distal radial artery just before the anastomosis and over the anastomotic and perianastomotic segment. This was done very carefully and in the up to 10 abril sustained for 2 minutes. Angiogram demonstrated successful outcome. The balloon was now swapped over the wire for a 5 mm drug-eluting angioplasty balloon. Angioplasty was Done in the culprit area. Inflating up to 11 abril for 3 minutes.]. Completion angiogram demonstrated [satisfactory result hand pressure for 10 minutes. Dressings applied, procedure concluded. Exposure time: 5.4 minutes Radiation: 6.68 Patricia sharp. Contrast: 25 mL of Isovue-M 300 low osmolality. DICTATING PHYSICIAN: ASHA SRIVASTAVA M.D. cc: ASHA SRIVASTAVA M.D. ([id number]) >>
== END 2017-09-05 14:00 | disposition home or self-care (01) ==
LOC: CCL 07:47
PROVIDERS: ATTEND Surgery
DX: T82.858A Stenosis of other vascular prosthetic devices, implants and grafts, initial encounter (principal); Y83.2 Surgical operation with anastomosis, bypass or graft as the cause of abnormal reaction of the patient, or of later complication, without mention of misadventure at the time of the procedure; I12.0 Hypertensive chronic kidney disease with stage 5 chronic kidney disease or end stage renal disease; E11.22 Type 2 diabetes mellitus with diabetic chronic kidney disease; N18.6 End stage renal disease; D63.1 Anemia in chronic kidney disease; Z99.2 Dependence on renal dialysis; R01.1 Cardiac murmur, unspecified; I35.0 Nonrheumatic aortic (valve) stenosis; J44.9 Chronic obstructive pulmonary disease, unspecified; K75.9 Inflammatory liver disease, unspecified; E03.9 Hypothyroidism, unspecified; M19.90 Unspecified osteoarthritis, unspecified site; Z79.899 Other long term (current) drug therapy; Z79.51 Long term (current) use of inhaled steroids; Z79.4 Long term (current) use of insulin; Z79.82 Long term (current) use of aspirin; Z79.01 Long term (current) use of anticoagulants
CPT/HCPCS: 36415; 85027; 85610; 85730; 80048; 36902; C1752; C1725; C1887; Q9967; J2997; J2250; J1644; A9270 ×2; J3010; J3490

== ENCOUNTER 2017-09-23 11:35 | Emergency (ER) | payer MEDICARE, BC ==
--- NOTE | 2017-09-23 12:24 | ER Document Report ---
ED Medical Screen (RME) - General Chief Complaint: Fall Injury Stated Complaint: FALL/HEAD,ARM INJURY Time Seen by Provider: 09/23/17 12:21 Notes: RAPID MEDICAL EVALUATION DISCLOSURE I have seen this patient as part of a Rapid Medical Evaluation and, if applicable, placed any initially appropriate orders. The patient will be seen and fully evaluated, including a full history and physical exam, by a provider ( in Main ED or Fast Track) when a room becomes available. 62-year-old female on Coumadin here status post fall approximately 11 hours ago. She states she tripped over the water hose and fell forward hitting her head, left knee, right elbow. She is unsure if she lost consciousness. Since then, she has been having headaches and nausea but no vomiting. Fortunately, she was able to protect her right forearm shunt/fistula and states it is not injured. EXAM Soft tissue scalp swelling without active bleeding Diffuse right elbow TTP Diffuse left knee TTP TRAVEL OUTSIDE OF THE [place] IN LAST 30 DAYS: No COUNTRY TRAVELED TO/FROM: [facility] - Related Data Allergies/Adverse Reactions: amlodipine besylate [From Norvasc] Allergy (Severe, Verified 09/23/17 11:38) Hives diphenhydramine HCl [From Benadryl] Allergy (Severe, Verified 09/23/17 11:38) Hives heparin (porcine) [Heparin,Porcine] Allergy (Severe, Verified 09/23/17 11:38) Fever losartan [Losartan] Allergy (Severe, Verified 09/23/17 11:38) unsure Pork/Porcine Containing Products [Pork/Porcine Product Derivatives] Allergy ( Severe, Verified 09/23/17 11:38) formoterol fumarate [From Dulera] Adverse Reaction (Severe, Verified 09/23/17 11 :38) Tachycardia mometasone furoate [From Dulera] Adverse Reaction (Severe, Verified 09/23/17 11: 38) Tachycardia ppd Allergy (Severe, Uncoded 09/23/17 11:38) converter Past Medical History - Past Medical History Cardiac Medical History: Reports: Hx Hypertension, Hx Heart Murmur - AORTIC STENOSIS Denies: Hx Atrial Fibrillation, Hx Congestive Heart Failure, Hx Coronary Artery Disease - HEART CATH 10/11 CLEAR, Hx Heart Attack, Hx Peripheral Vascular Disease, Hx Pulmonary Embolism Pulmonary Medical History: Reports: Hx Asthma - 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 Denies: Hx Peritoneal Dialysis Malignancy Medical History: Denies: Hx Bone Cancer, Hx Brain Cancer, Hx Breast Cancer, Hx Cervical Cancer, Hx Colorectal Cancer GI Medical History: Reports: Hx Hepatitis. Denies: Hx Ulcerative Colitis Musculoskeltal Medical History: Reports Hx Arthritis - ALL OVER Psychiatric Medical History: Reports: Hx Anxiety, Hx Depression Infectious Medical History: Reports: Hx Hepatitis Past Surgical History: Reports: Hx Cardiac Catheterization, Hx Cardiac Surgery - aortic valve replacement, Hx Cholecystectomy, Hx Gynecologic Surgery - fibroids, Hx Hysterectomy, Hx Kidney (Renal Surgery) - biopsies, Hx Orthopedic Surgery - right elbow, Hx Tonsillectomy, Hx Vascular Surgery - RIGHT FOREARM AV FISTULA - Immunizations Immunizations up to date: Yes Hx Diphtheria, Pertussis, Tetanus Vaccination: Yes History of Influenza Vaccine for 12/2016 - 05/2017 Season: Unknown Physical Exam - Vital signs Vitals: Temp Pulse Resp BP Pulse Ox 98.7 F 76 24 H 148/56 H 97 09/23/17 11:46 09/23/17 11:46 09/23/17 11:46 09/23/17 11:46 09/23/17 11:46 Course - Vital Signs Vital signs: Temp Pulse Resp BP Pulse Ox 98.7 F 76 24 H 148/56 H 97 09/23/17 11:46 09/23/17 11:46 09/23/17 11:46 09/23/17 11:46 09/23/17 11:46 Doctor's Discharge - Discharge Referrals: ALLI GREENFIELD MD [Primary Care Provider] - Follow up as needed
[2017-09-23 12:48] LABS: ABSOLUTE MONOCYTES (AUTO) 0.4 10^3/uL (0.1-1.4); ABSOLUTE NEUT (AUTO) 3.5 10^3/uL (1.7-8.2); BASOPHILS % (AUTO) 0.4 % (0-2); HEMATOCRIT 34.8 % (36.0-47.0); HEMOGLOBIN 11.3 g/dL (12.0-15.5); LYMPHOCYTES % (AUTO) 20.9 % (13-45); MEAN CORPUSCULAR HEMOGLOBIN 32.6 pg (27.0-33.4); MEAN CORPUSCULAR HGB CONC 32.4 g/dL (32.0-36.0); MEAN CORPUSCULAR VOLUME 101 fl (80-97); MONOCYTES % (AUTO) 8.1 % (3-13); PLATELET COUNT 106 10^3/uL (150-450); RED BLOOD COUNT 3.46 10^6/uL (3.72-5.28); RED CELL DISTRIBUTION WIDTH 16.4 % (11.5-14.0); SEGMENTED NEUTROPHILS % (AUTO) 70.6 % (42-78); TOTAL CELLS COUNTED % (AUTO) 100 %; WHITE BLOOD COUNT 4.9 10^3/uL (4.0-10.5)
[2017-09-23 13:01] LABS: INTERNATIONAL RATION (INR) 3.94; PROTHROMBIN TIME 40.3 SEC (11.4-15.4)
[2017-09-23 13:02] LABS: PARTIAL THROMBOPLASTIN TIME 42.2 SEC (23.5-35.8)
[2017-09-23 13:15] LABS: ALANINE AMINOTRANSFERASE 51 U/L (9-52); ALBUMIN 3.8 g/dL (3.5-5.0); ALKALINE PHOSPHATASE 172 U/L (38-126); ANION GAP 14 (5-19); ASPARTATE AMINO TRANSFERASE 41 U/L (14-36); BILIRUBIN,DIRECT 0.6 mg/dL (0.0-0.4); BILIRUBIN,TOTAL 0.6 mg/dL (0.2-1.3); BLOOD UREA NITROGEN 48 mg/dL (7-20); CALCIUM 7.4 mg/dL (8.4-10.2); CARBON DIOXIDE 31 mmol/L (22-30); CHLORIDE 98 mmol/L (98-107); GLUCOSE 228 mg/dL (75-110); POTASSIUM 5.1 mmol/L (3.6-5.0); SODIUM 142.8 mmol/L (137-145); TOTAL PROTEIN 6.6 g/dL (6.3-8.2)
--- NOTE | 2017-09-23 13:33 | RADIOLOGY REPORT (SQ) ---
EXAM DESCRIPTION: CT HEAD WITHOUT COMPLETED DATE/TIME: 09/23/2017 1:16 pm REASON FOR STUDY: s/p fall, on coumadin COMPARISON: 2007. TECHNIQUE: Axial images acquired through the brain without intravenous contrast. Images reviewed wi th bone, brain and subdural windows. Additional sagittal and coronal reconstructions were generated. Images stored on PACS. All CT scanners at this facility use dose modulation, iterative reconstruction, and/or weight based d osing when appropriate to reduce radiation dose to as low as reasonably achievable (ALARA). [facility]: Dose Right [facility]: CareDose [facility]: Dose Right [facility]: Teradose 4D [facility]: Smart [employer] RADIATION DOSE: CT Rad equipment meets quality standard of care and radiation dose reduction techniq ues were employed. CTDIvol: 53.2 mGy. DLP: 964 mGy-cm. mGy. LIMITATIONS: None. FINDINGS: VENTRICLES: Normal size and contour. CEREBRUM: No masses. No hemorrhage. No midline shift. No evidence for acute infarction. Normal gra y/white matter differentiation. No areas of low density in the white matter. CEREBELLUM: No masses. No hemorrhage. No alteration of density. No evidence for acute infarction. EXTRAAXIAL SPACES: No fluid collections. No masses. ORBITS AND GLOBE: No intra- or extraconal masses. Normal contour of globe without masses. CALVARIUM: No fracture. PARANASAL SINUSES: No fluid or mucosal thickening. SOFT TISSUES: Left temporal scalp soft tissue swelling without underlying fracture or drainable colle ction. Prominent regional vascular calcification. OTHER: No other significant finding. IMPRESSION: Soft tissue injury. No acute intracranial abnormality. EVIDENCE OF ACUTE STROKE: NO. COMMENT: Quality ID # [id number]: Final reports with documentation of one or more dose reduction techniques (e.g., Automated exposure control, adjustment of the mA and/or kV according to patient size, use of iterative reconstruction technique) TECHNICAL DOCUMENTATION: JOB ID: [id number] [employer]- All Rights Reserved Reading location - IP/workstation name: [email or web address]
--- NOTE | 2017-09-23 13:35 | RADIOLOGY REPORT (SQ) ---
EXAM DESCRIPTION: CT CERVICAL SPINE WITHOUT COMPLETED DATE/TIME: 09/23/2017 1:16 pm REASON FOR STUDY: s/p fall, on coumadin COMPARISON: None. TECHNIQUE: Axial images acquired through the cervical spine without intravenous contrast. Images re viewed with lung, soft tissue and bone windows. Reconstructed coronal and sagittal MPR images review ed. Images stored on PACS. All CT scanners at this facility use dose modulation, iterative reconstruction, and/or weight based d osing when appropriate to reduce radiation dose to as low as reasonably achievable (ALARA). [facility]: Dose Right [facility]: CareDose [facility]: Dose Right [facility]: Teradose 4D [facility]: Smart [employer] RADIATION DOSE: CT Rad equipment meets quality standard of care and radiation dose reduction techniq ues were employed. CTDIvol: 23.6 mGy. DLP: 500 mGy-cm. mGy. LIMITATIONS: None. FINDINGS: ALIGNMENT: Anatomic. MINERALIZATION: Normal. VERTEBRAL BODIES: No fractures or dislocation. DISCS: No significant disc disease. FACETS, LATERAL MASSES, POSTERIOR ELEMENTS: No fractures. No dislocation. No acute findings. HARDWARE: None in the spine. VISUALIZED RIBS: No fractures. LUNG APICES AND SOFT TISSUES: No significant or acute findings. OTHER: No other significant finding. IMPRESSION: NO ACUTE OR SIGNIFICANT FINDINGS IN THE CERVICAL SPINE. TECHNICAL DOCUMENTATION: JOB ID: [id number] Quality ID # [id number]: Final reports with documentation of one or more dose reduction techniques (e.g., Au tomated exposure control, adjustment of the mA and/or kV according to patient size, use of iterative reconstruction technique) 2010 [employer]- All Rights Reserved Reading location - IP/workstation name: [email or web address]
--- NOTE | 2017-09-23 13:40 | ER Document Report ---
ED Fall - General Mode of Arrival: Ambulatory Information source: Patient TRAVEL OUTSIDE OF THE [place] IN LAST 30 DAYS: No COUNTRY TRAVELED TO/FROM: [place] <KAREEM KENNEY - Last Filed: 09/23/17 15:40> <SUNNY LEDESMA - Last Filed: 09/24/17 12:05> - General Chief Complaint: Fall Injury Stated Complaint: FALL/HEAD,ARM INJURY Time Seen by Provider: 09/23/17 12:21 Notes: Patient is a 62 year old female with type 2 diabetes, end stage real disease with Tuesday, , Tuesday dialysis presents to the emergency department complaining of right elbow, left knee and head pain secondary to a mechanical trip and fall onset 0100 yesterday morning. Patient states she received a left knee injection on 09/21/2017 stating her knee felt great afterwards. She states she decided to go get some coffee without her cane and when she was returning home she tripped over a water hose outside her door. She complains of some nausea, vomiting and neck pain. She denies any neck pain immediately after the fall. (KAREEM KENNEY) - Related data Allergies/Adverse Reactions: amlodipine besylate [From Norvasc] Allergy (Severe, Verified 09/23/17 11:38) Hives diphenhydramine HCl [From Benadryl] Allergy (Severe, Verified 09/23/17 11:38) Hives heparin (porcine) [Heparin,Porcine] Allergy (Severe, Verified 09/23/17 11:38) Fever losartan [Losartan] Allergy (Severe, Verified 09/23/17 11:38) unsure Pork/Porcine Containing Products [Pork/Porcine Product Derivatives] Allergy ( Severe, Verified 09/23/17 11:38) formoterol fumarate [From Dulera] Adverse Reaction (Severe, Verified 09/23/17 11 :38) Tachycardia mometasone furoate [From Dulera] Adverse Reaction (Severe, Verified 09/23/17 11: 38) Tachycardia ppd Allergy (Severe, Uncoded 09/23/17 11:38) converter Past Medical History - General Information source: Patient - Social History Smoking Status: Unknown if Ever Smoked Family History: Reviewed & Not Pertinent Patient has suicidal ideation: No Patient has homicidal ideation: No - Past Medical History Cardiac Medical History: Reports: Hx Hypertension, Hx Heart Murmur - AORTIC STENOSIS Pulmonary Medical History: Reports: Hx Asthma - SEASONAL ALLERGIES TRIGGER ASTHMA, Hx COPD Endocrine Medical History: Reports: Hx Diabetes Mellitus Type 2, Hx Hypothyroidism Renal/ Medical History: Reports: Hx End Stage Renal Disease, Hx Hemodialysis, Hx Renal Insufficiency GI Medical History: Reports: Hx Hepatitis Musculoskeltal Medical History: Reports Hx Arthritis - ALL OVER Psychiatric Medical History: Reports: Hx Anxiety, Hx Depression Infectious Medical History: Reports: Hx Hepatitis Past Surgical History: Reports: Hx Cardiac Catheterization, Hx Cardiac Surgery - aortic valve replacement, Hx Cholecystectomy, Hx Gynecologic Surgery - fibroids, Hx Hysterectomy, Hx Kidney (Renal Surgery) - biopsies, Hx Orthopedic Surgery - right elbow, Hx Tonsillectomy, Hx Vascular Surgery - RIGHT FOREARM AV FISTULA - Immunizations Immunizations up to date: Yes Hx Diphtheria, Pertussis, Tetanus Vaccination: Yes Hx Pneumococcal Vaccination: 12/27/07 <KAREEM KENNEY - Last Filed: 09/23/17 15:40> Review of Systems - Review of Systems Constitutional: No symptoms reported EENT: No symptoms reported Cardiovascular: No symptoms reported Respiratory: No symptoms reported Gastrointestinal: See HPI, Nausea, Vomiting Genitourinary: No symptoms reported Female Genitourinary: No symptoms reported Musculoskeletal: See HPI Skin: No symptoms reported Hematologic/Lymphatic: No symptoms reported Neurological/Psychological: No symptoms reported -: Yes All other systems reviewed and negative <KAREEM KENNEY - Last Filed: 09/23/17 15:40> Physical Exam - General General appearance: Appears well, Alert In distress: None - HEENT Head: Normocephalic, Other - Hematoma on the left frontal and temporal scalp, soft, tender to palpation. Left sided forehead swelling dependent on hematoma. Eyes: Normal Conjunctiva: Normal Extraocular movements intact: Yes Pupils: PERRL Mucous membranes: Normal Neck: Normal, Other - Tender to posterior cervical muscles. - Respiratory Respiratory status: No respiratory distress Chest status: Nontender Breath sounds: Normal Chest palpation: Normal - Cardiovascular Rhythm: Regular Heart sounds: Normal auscultation Murmur: Yes - Mechanical valve click auscultated Friction rub: No Gallop: None auscultated - Abdominal Inspection: Obese Distension: No distension Bowel sounds: Normal Tenderness: Nontender Organomegaly: No organomegaly - Back Back: Normal - Extremities General upper extremity: Normal ROM, Other - Fistula in right forearm General lower extremity: Normal ROM Elbow: Tender, Other - Right elbow is swollen and tender to palpation. Knee: Tender, Abrasion - Left anterior lateral knee - Neurological Neuro grossly intact: Yes Cognition: Normal Orientation: AAOx4 [place] Coma Scale Eye Opening: Spontaneous [place] Coma Scale Verbal: Oriented [place] Coma Scale Motor: Obeys Commands [place] Coma Scale Total: 15 Speech: Normal - Psychological Associated symptoms: Normal affect, Normal mood - Skin Skin Temperature: Warm Skin Moisture: Dry <KAREEM KENNEY - Last Filed: 09/23/17 15:40> - Vital signs Vitals: Temp Pulse Resp BP Pulse Ox 98.7 F 76 24 H 148/56 H 97 09/23/17 11:46 09/23/17 11:46 09/23/17 11:46 09/23/17 11:46 09/23/17 11:46 Course - Laboratory Result Diagrams: 09/23/17 12:30 09/23/17 12:30 <KAREEM KENNEY - Last Filed: 09/23/17 15:40> - Laboratory Result Diagrams: 09/23/17 12:30 09/23/17 12:30 - Diagnostic Test Radiology reviewed: Image reviewed, Reports reviewed - CT scan of the head shows soft tissue swelling and hematoma over the left frontal temporal scalp region. No intracranial abnormality. CT scan of the cervical spine does not show fractures. X-ray of the left knee show soft tissue swelling with degenerative joint changes. X-ray of the right elbow shows soft tissue swelling and possible joint effusion without fractures. - Consults Dr. Coley Consulted provider: other <SUNNY LEDESMA - Last Filed: 09/24/17 12:05> - Re-evaluation Re-evalutation: 09/23/17 14:25 The patient reports she checks her INR at home on Sundays. She will check it this Tuesday prior to taking her evening dose to help guide the appropriate time to restart her Coumadin. The sling was applied to the right arm by the nurse. It fits well, provides support and allows her to relax the muscles around the elbow where the swelling and effusion are located. (SUNNY LEDESMA) - Vital Signs Vital signs: Temp Pulse Resp BP Pulse Ox 98.7 F 71 22 H 146/61 H 99 09/23/17 14:43 09/23/17 14:43 09/23/17 14:43 09/23/17 14:43 09/23/17 14:43 - Laboratory Laboratory results interpreted by me: 09/23/17 09/23/17 09/23/17 12:30 12:30 12:30 RBC 3.46 L Hgb 11.3 L Hct 34.8 L MCV 101 H RDW 16.4 H Plt Count 106 L PT 40.3 H APTT 42.2 H Potassium 5.1 H Carbon Dioxide 31 H BUN 48 H Creatinine 5.75 H Est GFR ( Amer) 9 L Est GFR (Non-Af Amer) 7 L Glucose 228 H Calcium 7.4 L Direct Bilirubin 0.6 H AST 41 H Alkaline Phosphatase 172 H Discharge <KAREEM KENNEY - Last Filed: 09/23/17 15:40> <SUNNY LEDESMA - Last Filed: 09/24/17 12:05> - Discharge Clinical Impression: Excessive anticoagulation, Effusion of right elbow, Dialysis patient Fall from slip, trip, or stumble Qualifiers: Encounter type: initial encounter Qualified Code(s): W01.0XXA - Fall on same level from slipping, tripping and stumbling without subsequent striking against object, initial encounter Contusion of left knee Qualifiers: Encounter type: initial encounter Qualified Code(s): S80.02XA - Contusion of left knee, initial encounter Contusion of right elbow Qualifiers: Encounter type: initial encounter Qualified Code(s): S50.01XA - Contusion of right elbow, initial encounter Condition: Stable Disposition: HOME, SELF-CARE Additional Instructions: Use the sling to support her right arm and rest the elbow. Stop the Coumadin until the Tuesday evening dose. Adjust the restarting time for the Coumadin based on your INR at home on Tuesday. Be sure to get your INR checked at dialysis tomorrow. Follow-up with your doctor if not improving. RETURN TO THE EMERGENCY ROOM IF ANY NEW OR WORSENING SYMPTOMS. Referrals: ALLI GREENFIELD MD [Primary Care Provider] - Follow up as needed Scribe Attestation: 09/23/17 14:30 I personally performed the services described in the documentation, reviewed and edited the documentation which was dictated to the scribe in my presence, and it accurately records my words and actions. (SUNNY LEDESMA) Scribe Documentation - Scribe Written by Letty:: Letty Tripp, 09/23/2017 13:47 acting as scribe for :: Latricia <KAREEM KENNEY - Last Filed: 09/23/17 15:40>
--- NOTE | 2017-09-23 13:44 | RADIOLOGY REPORT (SQ) ---
EXAM DESCRIPTION: ELBOW RIGHT AP/LAT COMPLETED DATE/TIME: 09/23/2017 1:04 pm REASON FOR STUDY: s/p fall, on coumadin COMPARISON: None. NUMBER OF VIEWS: Four views. TECHNIQUE: AP, lateral, and both oblique radiographic images acquired of the right elbow. LIMITATIONS: None. FINDINGS: MINERALIZATION: Normal. BONES: No acute fracture or dislocation. No worrisome bone lesions. JOINT: No effusion. SOFT TISSUES: Soft tissue swelling. Anterior and posterior fat pad suggest effusions. Soft tissue vascular calcifications. No foreign body. OTHER: No other significant finding. IMPRESSION: 1 Soft tissue swelling. 2 Anterior and posterior fat pads suggest effusions. 3 No acute osseous findings. TECHNICAL DOCUMENTATION: JOB ID: [id number] [employer],- All Rights Reserved Reading location - IP/workstation name: [email or web address]
--- NOTE | 2017-09-23 13:50 | RADIOLOGY REPORT (SQ) ---
EXAM DESCRIPTION: KNEE LEFT 3 VIEWS COMPLETED DATE/TIME: 09/23/2017 1:04 pm REASON FOR STUDY: s/p fall, on coumadin COMPARISON: 05/09/2017 NUMBER OF VIEWS: Four views. TECHNIQUE: AP, lateral, and both oblique radiographic images acquired of the left knee. LIMITATIONS: None. FINDINGS: MINERALIZATION: Normal. BONES: No acute fracture or dislocation. No worrisome bone lesions. JOINT: Stable degenerative changes, more pronounced and severe at the patellofemoral compartment. S mall suprapatellar effusion. SOFT TISSUES: Soft tissue swelling. Soft tissue vascular calcifications. Partially calcific densit y in the posterior soft tissues of the left thigh, on the film's edge. OTHER: No other significant finding. IMPRESSION: 1 Soft tissue swelling. 2 No significant interval changes since the prior study dated 05/09/2017. No acute osseous findings. 3. Degenerative changes involving the knee, particularly severe at the patellofemoral compartment. 4. As on the prior examination, partially calcified density in the soft tissues posterior thigh on th e film's edge. Plain films of the left femur are suggested. TECHNICAL DOCUMENTATION: JOB ID: [id number] [email or web address]- All Rights Reserved Reading location - IP/workstation name: [email or web address]
[2017-09-23 14:44] VITALS: BP 146/61
== END 2017-09-23 14:44 | disposition home or self-care (01) ==
LOC: ER 11:35
DX: S80.02XA Contusion of left knee, initial encounter (principal); S50.01XA Contusion of right elbow, initial encounter; S09.90XA Unspecified injury of head, initial encounter; M25.421 Effusion, right elbow; W01.0XXA Fall on same level from slipping, tripping and stumbling without subsequent striking against object, initial encounter; R11.2 Nausea with vomiting, unspecified; I12.0 Hypertensive chronic kidney disease with stage 5 chronic kidney disease or end stage renal disease; E11.22 Type 2 diabetes mellitus with diabetic chronic kidney disease; N18.6 End stage renal disease; Z79.02 Long term (current) use of antithrombotics/antiplatelets; Z99.2 Dependence on renal dialysis; E03.9 Hypothyroidism, unspecified; Z95.2 Presence of prosthetic heart valve; Z90.49 Acquired absence of other specified parts of digestive tract; Z90.710 Acquired absence of both cervix and uterus
CPT/HCPCS: 36415; 70450; 72125; 80053; 85025; 85610; 85730; 99284

== ENCOUNTER 2017-09-24 03:13 | Emergency (ER) | payer MEDICARE, BC ==
[2017-09-24 03:20] VITALS: BP 172/58
--- NOTE | 2017-09-24 03:39 | ER Document Report ---
ED General - General Chief Complaint: Other Stated Complaint: UNCONTROLLED BLEEDING Time Seen by Provider: 09/24/17 03:34 Notes: The patient is a 62-year-old female, past medical history ESRD (Tuesday, , Tuesday), anticoagulated on Coumadin, presents with some bleeding from her right arm fistula. She had a fall yesterday and was seen in the ER. She had a negative head CT and her INR was found to be 3.96. She held her Coumadin last night. Patient is scheduled for dialysis this morning. Patient denies syncope, lightheadedness, chest pain, shortness of breath, numbness, tingling or headache. TRAVEL OUTSIDE OF THE [place]. IN LAST 30 DAYS: No COUNTRY TRAVELED TO/FROM: [facility] - Related Data Allergies/Adverse Reactions: amlodipine besylate [From Norvasc] Allergy (Severe, Verified 09/23/17 11:38) Hives diphenhydramine HCl [From Benadryl] Allergy (Severe, Verified 09/23/17 11:38) Hives heparin (porcine) [Heparin,Porcine] Allergy (Severe, Verified 09/23/17 11:38) Fever losartan [Losartan] Allergy (Severe, Verified 09/23/17 11:38) unsure Pork/Porcine Containing Products [Pork/Porcine Product Derivatives] Allergy ( Severe, Verified 09/23/17 11:38) formoterol fumarate [From Dulera] Adverse Reaction (Severe, Verified 09/23/17 11 :38) Tachycardia mometasone furoate [From Dulera] Adverse Reaction (Severe, Verified 09/23/17 11: 38) Tachycardia ppd Allergy (Severe, Uncoded 09/23/17 11:38) converter Past Medical History - General Information source: Patient - Social History Smoking Status: Unknown if Ever Smoked Family History: Reviewed & Not Pertinent - Past Medical History Cardiac Medical History: Reports: Hx Hypertension, Hx Heart Murmur - AORTIC STENOSIS Denies: Hx Atrial Fibrillation, Hx Congestive Heart Failure, Hx Coronary Artery Disease - HEART CATH 10/11 CLEAR, Hx Heart Attack, Hx Peripheral Vascular Disease, Hx Pulmonary Embolism Pulmonary Medical History: Reports: Hx Asthma - 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 Denies: Hx Peritoneal Dialysis Malignancy Medical History: Denies: Hx Bone Cancer, Hx Brain Cancer, Hx Breast Cancer, Hx Cervical Cancer, Hx Colorectal Cancer GI Medical History: Reports: Hx Hepatitis. Denies: Hx Ulcerative Colitis Musculoskeltal Medical History: Reports Hx Arthritis - ALL OVER Psychiatric Medical History: Reports: Hx Anxiety, Hx Depression Infectious Medical History: Reports: Hx Hepatitis Past Surgical History: Reports: Hx Cardiac Catheterization, Hx Cardiac Surgery - aortic valve replacement, Hx Cholecystectomy, Hx Gynecologic Surgery - fibroids, Hx Hysterectomy, Hx Kidney (Renal Surgery) - biopsies, Hx Orthopedic Surgery - right elbow, Hx Tonsillectomy, Hx Vascular Surgery - RIGHT FOREARM AV FISTULA - Immunizations Immunizations up to date: Yes Hx Diphtheria, Pertussis, Tetanus Vaccination: Yes Hx Pneumococcal Vaccination: 12/27/07 Review of Systems - Review of Systems Notes: REVIEW OF SYSTEMS: CONSTITUTIONAL: -fevers, -chills EENT: -eye pain, -difficulty swallowing, -nasal congestion CARDIOVASCULAR: -chest pain, -syncope. RESPIRATORY: -cough, -SOB GASTROINTESTINAL: -abdominal pain, -nausea, -vomiting, -diarrhea GENITOURINARY: -dysuria, -hematuria MUSCULOSKELETAL: -back pain, -neck pain SKIN: +bleeding from RUE fistula, -rash or skin lesions. HEMATOLOGIC: -easy bruising or bleeding. LYMPHATIC: -swollen, enlarged glands. NEUROLOGICAL: -altered mental status or loss of consciousness, -headache, - neurologic symptoms PSYCHIATRIC: -anxiety, -depression. ALL OTHER SYSTEMS REVIEWED AND NEGATIVE. Physical Exam - Vital signs Vitals: Temp Pulse Resp BP Pulse Ox 98.5 F 80 18 172/58 H 97 09/24/17 03:19 09/24/17 03:19 09/24/17 03:19 09/24/17 03:19 09/24/17 03:19 - Notes Notes: PHYSICAL EXAMINATION: GENERAL: Well-appearing, well-nourished and in no acute distress. HEAD: Hematoma over left upper scalp, no active bleeding. EYES: Pupils equal round and reactive to light, extraocular movements intact, sclera anicteric, conjunctiva are normal. ENT: nares patent, oropharynx clear without exudates. Moist mucous membranes. NECK: Normal range of motion, supple without lymphadenopathy LUNGS: Breath sounds clear to auscultation bilaterally and equal. No wheezes rales or rhonchi. HEART: Regular rate and rhythm without murmurs ABDOMEN: Soft, nontender, normoactive bowel sounds. No guarding, no rebound. No masses appreciated. EXTREMITIES: Right forearm fistula with a small amount of oozing from a pinpoint area in the fistula. Bruising over right elbow, mild swelling of right wrist (chronic in nature, according to patient). NEUROLOGICAL: Cranial nerves grossly intact. Normal speech, normal gait. Normal sensory and motor exams. PSYCH: Normal mood, normal affect. Course - Re-evaluation Re-evalutation: Patient with a small bruise from her AV fistula. Quick clot soaked in TXA was applied with a pressure dressing over the area until her dialysis this morning. Her INR was checked yesterday and it was 3.94 and this may be causing the increased bruising. She already had a head CT and elbow x-ray from her prior visit yesterday, which were reviewed and did not show any concerning abnormalities, other than a right elbow effusion. - Vital Signs Vital signs: Temp Pulse Resp BP Pulse Ox 98.5 F 80 18 172/58 H 97 09/24/17 03:19 09/24/17 03:19 09/24/17 03:19 09/24/17 03:19 09/24/17 03:19 Discharge - Discharge Clinical Impression: Hemorrhage of arteriovenous fistula Qualifiers: Encounter type: initial encounter Qualified Code(s): T82.838A - Hemorrhage due to vascular prosthetic devices, implants and grafts, initial encounter Condition: Stable Disposition: HOME, SELF-CARE Additional Instructions: Keep the bandage in place with the medications until dialysis today. Check your INR at home before you take an additional dose of Coumadin. Return to the ER if you notice worsening bleeding or any other concerns. Forms: Elevated Blood Pressure Referrals: ALLI GREENFIELD MD [Primary Care Provider] - Follow up as needed LEANDRA LEIGH MD [ACTIVE STAFF] - Follow up as needed
[2017-09-24] MEDS ORDERED: TRANEXAMIC ACID INJ/PF 1,000 MG/10 ML SDV IV ONE (03:45)
== END 2017-09-24 03:55 | disposition home or self-care (01) ==
LOC: ER 03:13
DX: T82.838A Hemorrhage due to vascular prosthetic devices, implants and grafts, initial encounter (principal); Y84.1 Kidney dialysis as the cause of abnormal reaction of the patient, or of later complication, without mention of misadventure at the time of the procedure; Z79.01 Long term (current) use of anticoagulants; E11.22 Type 2 diabetes mellitus with diabetic chronic kidney disease; I12.0 Hypertensive chronic kidney disease with stage 5 chronic kidney disease or end stage renal disease; N18.6 End stage renal disease; Z99.2 Dependence on renal dialysis; M25.421 Effusion, right elbow; Z88.8 Allergy status to other drugs, medicaments and biological substances; Z91.018 Allergy to other foods; Z88.7 Allergy status to serum and vaccine
CPT/HCPCS: 99283; 96374; J3490

== ENCOUNTER 2018-07-10 14:39 | Inpatient (IN) | payer MEDICARE, BC ==
[2018-07-10] MEDS ORDERED: ALBUTEROL SULFATE 0.083% NEB 2.5 MG/3 ML AMPUL NEB ONE ×2 (16:23→18:16)
[2018-07-10] MEDS ORDERED: MAGNESIUM SULFATE/D5W 1 GM/100 ML RTUPB IV ONE ×3 (16:23→19:23)
--- NOTE | 2018-07-10 16:27 | ER Document Report ---
ED Medical Screen (RME) - General Chief Complaint: Shortness Of Breath Stated Complaint: DIFFICULTY BREATHING Time Seen by Provider: 07/10/18 16:16 Primary Care Provider: ALLI GREENFIELD MD [Primary Care Provider] - Follow up as needed TRAVEL OUTSIDE OF THE [place] IN LAST 30 DAYS: No COUNTRY TRAVELED TO/FROM: [facility] Notes: 07/10/18 16:24 Patient is a 62-year-old female with a history of diet-controlled diabetes (was previously on insulin), hypertension, valve replacement and on Coumadin, asthma who presents the emergency department complaining of dry cough, wheezing, shortness of breath that began a little over a week ago. She was evaluated around that time and was diagnosed with influenza, but placed on prednisone and Zithromax. Denies GAONA, fever, neck pain, CP, Abd pain, or rash. I have treated and performed a rapid initial assessment of this patient. A comprehensive ED assessment and evaluation of the patient, analysis of test re sults and completion of medical decision making process will be conducted by additional ED providers. PHYSICAL EXAMINATION: GENERAL: Well-appearing, well-nourished and in no acute distress. A&Ox4. Answers questions appropriately. LUNGS: Wheezing bilaterally. No retractions. Dry cough noted. HEART: Regular rate and rhythm without murmurs, rubs, gallops. - Related Data Allergies/Adverse Reactions: amlodipine besylate [From Norvasc] Allergy (Severe, Verified 09/23/17 11:38) Hives diphenhydramine HCl [From Benadryl] Allergy (Severe, Verified 09/23/17 11:38) Hives heparin (porcine) [Heparin,Porcine] Allergy (Severe, Verified 09/23/17 11:38) Fever losartan [Losartan] Allergy (Severe, Verified 09/23/17 11:38) unsure Pork/Porcine Containing Products [Pork/Porcine Product Derivatives] Allergy (Severe, Verified 09/23/17 11:38) formoterol fumarate [From Dulera] Adverse Reaction (Severe, Verified 09/23/17 11:38) Tachycardia mometasone furoate [From Dulera] Adverse Reaction (Severe, Verified 09/23/17 11:38) Tachycardia ppd Allergy (Severe, Uncoded 09/23/17 11:38) converter Past Medical History - Social History Frequency of alcohol use: None Drug Abuse: None - Past Medical History Cardiac Medical History: Reports: Hx Hypertension, Hx Heart Murmur - AORTIC STENOSIS Denies: Hx Atrial Fibrillation, Hx Congestive Heart Failure, Hx Coronary Artery Disease - HEART CATH 10/11 CLEAR, Hx Heart Attack, Hx Peripheral Vascular Disease, Hx Pulmonary Embolism Pulmonary Medical History: Reports: Hx Asthma - 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 Denies: Hx Peritoneal Dialysis Malignancy Medical History: Denies: Hx Bone Cancer, Hx Brain Cancer, Hx Breast Cancer, Hx Cervical Cancer, Hx Colorectal Cancer GI Medical History: Reports: Hx Hepatitis. Denies: Hx Ulcerative Colitis Musculoskeltal Medical History: Reports Hx Arthritis - ALL OVER Psychiatric Medical History: Reports: Hx Anxiety, Hx Depression Infectious Medical History: Reports: Hx Hepatitis Past Surgical History: Reports: Hx Cardiac Catheterization, Hx Cardiac Surgery - aortic valve replacement, Hx Cholecystectomy, Hx Gynecologic Surgery - fibroids, Hx Hysterectomy, Hx Kidney (Renal Surgery) - biopsies, Hx Orthopedic Surgery - right elbow, Hx Tonsillectomy, Hx Vascular Surgery - RIGHT FOREARM AV FISTULA - Immunizations Immunizations up to date: Yes Hx Diphtheria, Pertussis, Tetanus Vaccination: Yes History of Influenza Vaccine for 12/2016 - 05/2017 Season: Unknown Physical Exam - Vital signs Vitals: Temp Pulse Resp BP Pulse Ox 98.2 F 74 22 H 173/60 H 98 07/10/18 14:58 07/10/18 14:58 07/10/18 14:58 07/10/18 14:58 07/10/18 14:58 Course - Vital Signs Vital signs: Temp Pulse Resp BP Pulse Ox 98.2 F 74 22 H 173/60 H 98 07/10/18 14:58 07/10/18 14:58 07/10/18 14:58 07/10/18 14:58 07/10/18 14:58 Doctor's Discharge - Discharge Referrals: ALLI GREENFIELD MD [Primary Care Provider] - Follow up as needed
[2018-07-10] MEDS ORDERED: NORMAL SALINE 1000 ML 1,000 ML IV ONE ×2 (16:48→18:16)
[2018-07-10 17:22] LABS: ABSOLUTE LYMPHOCYTES (AUTO) 0.5 10^3/uL (0.5-4.7); ABSOLUTE MONOCYTES (AUTO) 0.1 10^3/uL (0.1-1.4); ABSOLUTE NEUT (AUTO) 2.9 10^3/uL (1.7-8.2); BASOPHILS % (AUTO) 0.5 % (0-2); HEMATOCRIT 29.3 % (36.0-47.0); HEMOGLOBIN 9.8 g/dL (12.0-15.5); LYMPHOCYTES % (AUTO) 13.9 % (13-45); MEAN CORPUSCULAR HEMOGLOBIN 34.2 pg (27.0-33.4); MEAN CORPUSCULAR HGB CONC 33.5 g/dL (32.0-36.0); MEAN CORPUSCULAR VOLUME 102 fl (80-97); MONOCYTES % (AUTO) 3.4 % (3-13); PLATELET COUNT 108 10^3/uL (150-450); RED BLOOD COUNT 2.87 10^6/uL (3.72-5.28); RED CELL DISTRIBUTION WIDTH 17.7 % (11.5-14.0); SEGMENTED NEUTROPHILS % (AUTO) 82.2 % (42-78); TOTAL CELLS COUNTED % (AUTO) 100 %; WHITE BLOOD COUNT 3.6 10^3/uL (4.0-10.5)
[2018-07-10 17:26] LABS: VENOUS BLOOD BASE EXCESS -1.4 mmol/L; VENOUS BLOOD HCO3 23.7 mmol/L (20-32); VENOUS BLOOD PCO2 41.1 mmHg (35-63); VENOUS BLOOD PH 7.38 (7.30-7.42)
--- NOTE | 2018-07-10 17:28 | RADIOLOGY REPORT (SQ) ---
EXAM DESCRIPTION: CHEST 2 VIEWS COMPLETED DATE/TIME: 07/10/2018 5:11 pm REASON FOR STUDY: cough/wheezing COMPARISON: 01/20/2016 EXAM PARAMETERS: NUMBER OF VIEWS: two views TECHNIQUE: Digital Frontal and Lateral radiographic views of the chest acquired. RADIATION DOSE: NA LIMITATIONS: none FINDINGS: LUNGS AND PLEURA: No opacities, masses or pneumothorax. No pleural effusion. MEDIASTINUM AND HILAR STRUCTURES: No masses or contour abnormalities. HEART AND VASCULAR STRUCTURES: Borderline heart size. No pulmonary edema. BONES: No acute findings. HARDWARE: Sternotomy wires. OTHER: No other significant finding. IMPRESSION: Borderline cardiomegaly without pulmonary edema. TECHNICAL DOCUMENTATION: JOB ID: [id number] [employer]- All Rights Reserved Reading location - IP/workstation name: [email or web address]
[2018-07-10 17:30] LABS: INTERNATIONAL RATION (INR) 3.53
[2018-07-10 17:42] LABS: ALANINE AMINOTRANSFERASE 48 U/L (9-52); ALBUMIN 3.9 g/dL (3.5-5.0); ALKALINE PHOSPHATASE 150 U/L (38-126); ANION GAP 14 (5-19); ASPARTATE AMINO TRANSFERASE 44 U/L (14-36); BILIRUBIN,DIRECT 0.9 mg/dL (0.0-0.4); BILIRUBIN,TOTAL 0.9 mg/dL (0.2-1.3); BLOOD UREA NITROGEN 62 mg/dL (7-20); CALCIUM 7.9 mg/dL (8.4-10.2); CARBON DIOXIDE 29 mmol/L (22-30); CHLORIDE 90 mmol/L (98-107); POTASSIUM 4.8 mmol/L (3.6-5.0); SODIUM 132.5 mmol/L (137-145); TOTAL PROTEIN 6.9 g/dL (6.3-8.2)
[2018-07-10 17:58] LABS: GLUCOSE 506 mg/dL (75-110)
--- NOTE | 2018-07-10 20:05 | EKG REPORT ---
SEVERITY:- BORDERLINE ECG - SINUS RHYTHM BORDERLINE PROLONGED QT INTERVAL : Confirmed by: Kiah Hurd MD 10-Jul-2018 20:03:24
[2018-07-10] MEDS ORDERED: NITROGLYCERIN/D5W 50 MG/250 ML RTUINJ IV PRN (20:17)
[2018-07-10] MEDS ORDERED: INSULIN REG, HUMAN 100 UNIT/ML 3 ML VIAL (PYX) SUBCUT ONE (20:25)
--- NOTE | 2018-07-10 20:26 | ER Document Report ---
ED General - General Chief Complaint: Shortness Of Breath Stated Complaint: DIFFICULTY BREATHING Time Seen by Provider: 07/10/18 16:16 Primary Care Provider: ALLI GREENFIELD MD [ACTIVE STAFF] - Follow up as needed Notes: Patient is a 62-year-old female with a past medical history of end-stage renal disease with dialysis dependence, hypertension, presents complaining of 1 week of progressively worsening shortness of breath which has become much worse in the last 48 hours. States that it is a constant, persistent, severe symptom worsened by lying flat. She states that she was on a course of steroids, azithromycin, inhaler which did not improve any of her symptoms. She has not had fever or constitutional symptoms. Has not seen her primary doctor regarding today's concerns. TRAVEL OUTSIDE OF THE [place] IN LAST 30 DAYS: No COUNTRY TRAVELED TO/FROM: [facility] - Related Data Allergies/Adverse Reactions: amlodipine besylate [From Norvasc] Allergy (Severe, Verified 09/23/17 11:38) Hives diphenhydramine HCl [From Benadryl] Allergy (Severe, Verified 09/23/17 11:38) Hives heparin (porcine) [Heparin,Porcine] Allergy (Severe, Verified 09/23/17 11:38) Fever losartan [Losartan] Allergy (Severe, Verified 09/23/17 11:38) unsure Pork/Porcine Containing Products [Pork/Porcine Product Derivatives] Allergy (Severe, Verified 09/23/17 11:38) formoterol fumarate [From Dulera] Adverse Reaction (Severe, Verified 09/23/17 1 1:38) Tachycardia mometasone furoate [From Dulera] Adverse Reaction (Severe, Verified 09/23/17 11:38) Tachycardia ppd Allergy (Severe, Uncoded 09/23/17 11:38) converter Past Medical History - General Information source: Patient - Social History Smoking Status: Never Smoker Frequency of alcohol use: None Drug Abuse: None Lives with: Family Family History: Reviewed & Not Pertinent Patient has suicidal ideation: No Patient has homicidal ideation: No - Past Medical History Cardiac Medical History: Reports: Hx Hypertension, Hx Heart Murmur - AORTIC STENOSIS Denies: Hx Atrial Fibrillation, Hx Congestive Heart Failure, Hx Coronary Artery Disease - HEART CATH 10/11 CLEAR, Hx Heart Attack, Hx Peripheral Vascular Disease, Hx Pulmonary Embolism Pulmonary Medical History: Reports: Hx Asthma - 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 Denies: Hx Peritoneal Dialysis Malignancy Medical History: Denies: Hx Bone Cancer, Hx Brain Cancer, Hx Breast Cancer, Hx Cervical Cancer, Hx Colorectal Cancer GI Medical History: Reports: Hx Hepatitis. Denies: Hx Ulcerative Colitis Musculoskeletal Medical History: Reports Hx Arthritis - ALL OVER Psychiatric Medical History: Reports: Hx Anxiety, Hx Depression Infectious Medical History: Reports: Hx Hepatitis Past Surgical History: Reports: Hx Cardiac Catheterization, Hx Cardiac Surgery - aortic valve replacement, Hx Cholecystectomy, Hx Gynecologic Surgery - fibroids, Hx Hysterectomy, Hx Kidney (Renal Surgery) - biopsies, Hx Orthopedic Surgery - right elbow, Hx Tonsillectomy, Hx Vascular Surgery - RIGHT FOREARM AV FISTULA - Immunizations Immunizations up to date: Yes Hx Diphtheria, Pertussis, Tetanus Vaccination: Yes Hx Pneumococcal Vaccination: 12/27/07 Review of Systems - Review of Systems Notes: Constitutional: Negative for fever. HENT: Negative for sore throat. Eyes: Negative for visual changes. Cardiovascular: Negative for chest pain. Respiratory: Positive for shortness of breath and cough Gastrointestinal: Negative for abdominal pain, vomiting or diarrhea. Genitourinary: Negative for dysuria. Musculoskeletal: Negative for back pain. Skin: Negative for rash. Neurological: Negative for headaches, weakness or numbness. 10 point ROS negative except as marked above and in HPI. Physical Exam - Vital signs Vitals: Temp Pulse Resp BP Pulse Ox 98.2 F 74 22 H 173/60 H 98 07/10/18 14:58 07/10/18 14:58 07/10/18 14:58 07/10/18 14:58 07/10/18 14:58 Interpretation: Hypertensive, Tachycardic, Tachypneic Notes: PHYSICAL EXAMINATION: GENERAL: Appears somewhat unwell, in mild to moderate respiratory distress HEAD: Atraumatic, normocephalic. EYES: Pupils equal round and reactive to light, extraocular movements intact, sclera anicteric, conjunctiva are normal. ENT: nares patent, oropharynx clear without exudates. Dry mucous membranes. NECK: Normal range of motion, supple without lymphadenopathy LUNGS: Patient is chronically, wet at the bases bilaterally. Mild to moderate respiratory distress. Labored in her breathing. No retractions. HEART: Regular rate and rhythm without murmurs ABDOMEN: Soft, nontender, normoactive bowel sounds. No guarding, no rebound. No masses appreciated. EXTREMITIES: Normal range of motion, 2+ pitting edema in the bilateral lower extremities that is equal and symmetric. No cyanosis. NEUROLOGICAL: No focal neurological deficits. Moves all extremities spontaneously and on command. PSYCH: Normal mood, normal affect. SKIN: Warm, Dry, normal turgor, no rashes or lesions noted. Course - Re-evaluation Re-evalutation: 07/10/18 20:21 Patient presents with labored breathing, unable to lie in the bed secondary to severe orthopnea, breathing approximately 28 times per minute on my initial assessment. She is saturating well however at 97% on room air. Patient was seen in triage and inappropriately given 2 L of IV fluid. I did speak directly to the physician assistant chief engineer who saw this patient and he stated to me that he did not recognize that the patient was a dialysis patient. Thankfully nursing staff did discontinue the second liter before completed but the patient did receive approximately 1.2 L of an IV fluid bolus. I unfortunately think that this took the patient from having some mild congestive pattern secondary to volume overload as her initial weight is 2.8 kg higher than she weighed 2 days ago at dialysis she reports that she rate 105.1 kg to being in a more serious congestive picture. Patient is mildly diaphoretic, her pressure has increased quite dramatically from initial read up to 208 on 66 at this time. She does not make any urine and diuresis is not an option. I have ordered the patient to be started on nitroglycerin infusion and will discuss with the hospitalist for admission given her labor of breathing. Right now the patient is saturating adequately however her labor of breathing is elevated enough that I think BiPAP is appropriate. Will obtain a repeat chest x-ray. Patient is in guarded condition, will be reassessed at regular intervals. 07/10/18 21:26 Patient's work of breathing has much improved on BiPAP. Pressures are improving on nitro glycerin infusion. Repeat chest x-ray does not show any prominent edema pattern although notably this was taken after patient rhythm placed on BiPAP and started on nitroglycerin infusion. Patient is no longer diaphoretic, able to speak in complete sentences. I did speak with Dr. Portillo who has accepted the patient to [facility] - Vital Signs Vital signs: Temp Pulse Resp BP Pulse Ox 98 F 74 24 H 171/66 H 96 07/10/18 19:32 07/10/18 14:58 07/10/18 21:21 07/10/18 21:21 07/10/18 21:21 - Laboratory Result Diagrams: 07/10/18 17:01 07/10/18 17:01 Laboratory results interpreted by me: 07/10/18 07/10/18 07/10/18 17:01 17:01 17:01 WBC 3.6 L RBC 2.87 L Hgb 9.8 L Hct 29.3 L MCV 102 H MCH 34.2 H RDW 17.7 H Plt Count 108 L Seg Neutrophils % 82.2 H PT 37.0 H Sodium 132.5 L Chloride 90 L BUN 62 H Creatinine 7.21 H Est GFR ( Amer) 7 L Est GFR (Non-Af Amer) 6 L Glucose 506 H* Calcium 7.9 L Direct Bilirubin 0.9 H AST 44 H Alkaline Phosphatase 150 H - Diagnostic Test Radiology reviewed: Image reviewed, Reports reviewed Radiology results interpreted by me: 07/10/18 20:26 Chest x-ray: Cardiomegaly, mild pulmonary edema pattern - EKG Interpretation by Me Additional EKG results interpreted by me: 07/10/18 20:26 Sinus rhythm, rate 69. No ST elevations or depressions. QTC 502. Critical Care Note - Critical Care Note Total time excluding time spent on procedures (mins): 40 Comments: Critical care time spent obtaining history from patient or surrogate, discussions with consultants, development of treatment plan with patient or surrogate, evaluation of patient's response to treatment, examination of patient, ordering and performing treatments and interventions, ordering and review of laboratory studies, re-evaluation of patient's condition, ordering and review of radiographic studies and review of old charts Discharge - Discharge Clinical Impression: Respiratory distress, Malignant hypertension, End stage renal disease on dialysis Condition: Fair Disposition: ADMITTED OBSERVATION Admitting Provider: Bandar (Hospitalist) Unit Admitted: [facility] Referrals: ALLI GREENFIELD MD [ACTIVE STAFF] - Follow up as needed
--- NOTE | 2018-07-10 20:49 | RADIOLOGY REPORT (SQ) ---
EXAM DESCRIPTION: XR CHEST 1 VIEW COMPLETED DATE/TME: 07/10/2018 20:18 CLINICAL HISTORY: 62 years, Female, sob, cough Findings: The heart is mildly enlarged. Status post median sternotomy. No consolidation or pleural effusion. No pulmonary edema or pneumothorax. IMPRESSION: No acute disease.
[2018-07-10] MEDS ORDERED: GLUCAGON,HUMAN RECOMB 1 MG INJ IM PRN (21:26)
[2018-07-10] MEDS ORDERED: MAGNESIUM HYDROXIDE SUSP 30 ML UDCUP PO PRN (21:26)
[2018-07-10] MEDS ORDERED: SODIUM POLYSTYRENE SULFONATE 15 GM/60 ML PO ONE (21:26)
[2018-07-10] MEDS ORDERED: LACTULOSE SYRUP 20 GM/30 ML UDCUP PO ONE (21:26)
[2018-07-10] MEDS ORDERED: IPRATROPIUM/ALBUTEROL 0.5-2.5 MG/3 ML AMPUL NEB PRN (21:26)
[2018-07-10] MEDS ORDERED: ACETAMINOPHEN 325 MG TABLET PO PRN (21:26)
[2018-07-10] MEDS ORDERED: DEXTROSE 50%-WATER 25 GM/50 ML DISP.SYRIN IV PRN ×2 (21:26)
[2018-07-10] MEDS ORDERED: DEXTROSE 40% GEL 15 GM TUBE PO PRN ×2 (21:26)
[2018-07-10] MEDS ORDERED: PATIROMER 8.4 GM SUSP PACKET PO ONE ×2 (22:00→23:00)
[2018-07-10] MEDS ORDERED: ASPIRIN 81 MG TABLET, CHEWABLE PO SCH (22:00)
[2018-07-10] MEDS ORDERED: LACTULOSE SYRUP 20 GM/30 ML UDCUP ONE (22:26)
[2018-07-10] MEDS ORDERED: CINACALCET HCL 30 MG TABLET PO ONE ×2 (22:27→22:34)
[2018-07-10] MEDS ORDERED: HYDRALAZINE HCL INJ/PF 20 MG/1 ML SDV IV PRN (22:32)
[2018-07-10] MEDS: CINACALCET HCL 30 MG TABLET PO SCH (22:59)
[2018-07-10] MEDS: HEPARIN SOD (PORCINE) 5,000 UNIT/ML 1 ML SYRINGE SUBCUT SCH (23:01)
[2018-07-10] MEDS: CARVEDILOL 12.5 MG TABLET PO SCH (23:03)
[2018-07-11] MEDS: INSULIN LISPRO 100 UNIT/ML 3 ML VIAL SUBCUT SCH ×5 (01:12→21:58)
[2018-07-11] MEDS ORDERED: INSULIN REG, HUMAN 100 UNIT/ML 3 ML VIAL (PYX) SUBCUT ONE (02:30)
[2018-07-11] MEDS ORDERED: INSULIN REG, HUMAN 100 UNIT/ML 3 ML VIAL (PYX) IV ONE (03:15)
[2018-07-11 03:21] LABS: ABSOLUTE LYMPHOCYTES (AUTO) 0.8 10^3/uL (0.5-4.7); ABSOLUTE MONOCYTES (AUTO) 0.1 10^3/uL (0.1-1.4); ABSOLUTE NEUT (AUTO) 3.2 10^3/uL (1.7-8.2); BASOPHILS % (AUTO) 0.2 % (0-2); HEMATOCRIT 27.3 % (36.0-47.0); HEMOGLOBIN 9.4 g/dL (12.0-15.5); MEAN CORPUSCULAR HEMOGLOBIN 34.3 pg (27.0-33.4); MEAN CORPUSCULAR HGB CONC 34.3 g/dL (32.0-36.0); MEAN CORPUSCULAR VOLUME 100 fl (80-97); MONOCYTES % (AUTO) 3.1 % (3-13); PLATELET COUNT 102 10^3/uL (150-450); RED BLOOD COUNT 2.73 10^6/uL (3.72-5.28); RED CELL DISTRIBUTION WIDTH 17.4 % (11.5-14.0); SEGMENTED NEUTROPHILS % (AUTO) 76.7 % (42-78); TOTAL CELLS COUNTED % (AUTO) 100 %; WHITE BLOOD COUNT 4.2 10^3/uL (4.0-10.5)
[2018-07-11 03:28] LABS: ALANINE AMINOTRANSFERASE 46 U/L (9-52); ALBUMIN 3.8 g/dL (3.5-5.0); ALKALINE PHOSPHATASE 138 U/L (38-126); ANION GAP 15 (5-19); ASPARTATE AMINO TRANSFERASE 32 U/L (14-36); BILIRUBIN,DIRECT 0.7 mg/dL (0.0-0.4); BILIRUBIN,TOTAL 0.8 mg/dL (0.2-1.3); BLOOD UREA NITROGEN 65 mg/dL (7-20); CALCIUM 8.2 mg/dL (8.4-10.2); CARBON DIOXIDE 23 mmol/L (22-30); CHLORIDE 96 mmol/L (98-107); GLUCOSE 307 mg/dL (75-110); SODIUM 133.9 mmol/L (137-145); TOTAL PROTEIN 6.5 g/dL (6.3-8.2)
--- NOTE | 2018-07-11 05:44 | PDOC H&P ---
History of Present Illness Admission Date/PCP: 07/10/18 21:33 Patient complains of: Shortness of breath History of Present Illness: PER DEXTER is a 62 year old female with a past medical history of morbid obesity, hemodialysis dependent end-stage renal failure, aortic valve replacement on Coumadin, diabetes and hypertension. Patient presents with 1 week of worsening upper respiratory symptoms suggestive of sinusitis and bronchitis treated with azithromycin and prednisone. In the emergency room she is tachypneic, hypoxic at 87% on room air, and uncontrolled blood pressure 170/60. She receives albuterol and Atrovent, magnesium, insulin IV fluids and BiPAP and referred to the hospitalist for admission. Patient admits dietary indiscretion, discontinuing diabetic treatment, and recent prednisone initiation. She admits to orthopnea and lower extremity edema. Past Medical History Cardiac Medical History: Reports: Hypertension, Heart Murmur - AORTIC STENOSIS Denies: Atrial Fibrillation, Congestive Heart Failure, Coronary Artery Disease - HEART CATH 10/11 CLEAR, Myocardial Infarction, Peripheral Vascular Disease, Pulmonary Embolism Pulmonary Medical History: Reports: Asthma - SEASONAL ALLERGIES TRIGGER ASTHMA, Chronic Obstructive Pulmonary Disease (COPD) Denies: Bronchitis, Intubation, Pneumonia, Respiratory Failure, Sleep Apnea Neurological Medical History: Denies: Seizures Endocrine Medical History: Reports: Diabetes Mellitus Type 2, Hypothyroidism Renal/ Medical History: Reports: End Stage Renal Disease Malignancy Medical History: Denies: Bone Cancer, Brain Cancer, Breast Cancer, Cervical Cancer, Colorectal Cancer GI Medical History: Reports: Hepatitis Denies: Ulcerative Colitis Musculoskeltal Medical History: Reports: Arthritis - ALL OVER Psychiatric Medical History: Reports: Depression Hematology: Reports: Anemia Past Surgical History Past Surgical History: Reports: Cardiac Catheterization, Cholecystectomy, Hys terectomy, Orthopedic Surgery - right elbow, Tonsillectomy, Vascular Surgery - RIGHT FOREARM AV FISTULA Social History Information Source: Patient, [facility] Records Lives with: Family Smoking Status: Former Smoker Cigarettes Packs Per Day: 1 Number of Years Smokin Last Time Smoked: 1979 Frequency of Alcohol Use: None Hx Recreational Drug Use: Yes Drugs: Marijuana Hx Prescription Drug Abuse: No - Advance Directive Resuscitation Status: Full Code Family History Family History: Hypertension Parental Family History Reviewed: Yes Children Family History Reviewed: Yes Sibling(s) Family History Reviewed.: Yes Medication/Allergy Home Medications: Carvedilol [Coreg 25 mg Tablet] 1 tab PO Q12 03/22/13 Albuterol Sulfate [Proventil 0.5% Neb 2.5 mg/0.5 ml Vial.neb] 2 puff IN Q4H PRN 02/03/15 Insulin Glargine,Hum.rec.anlog [Lantus Insulin 100 Unit/mL] 7 unit SUBCUT QHS 02/03/15 Insulin Lispro [Humalog Insulin (Lispro) 100 unit/mL] 0 unit SUBCUT .SLD SCALE 02/03/15 Lubiprostone [Amitiza 24 Mcg Capsule] 24 mcg PO DAILY PRN 02/03/15 Omeprazole [Prilosec] 20 mg PO DAILY 02/03/15 Ondansetron [Zofran Odt 4 mg Tablet] 1 - 2 tab PO Q4H #10 tab.rapdis 02/03/15 Sevelamer Carbonate [Renvela] 4 tab PO TID 02/03/15 Albuterol Sulfate [Albuterol Sulfate 2.5mg/3 mL] 1 vial IH Q4 PRN #30 vial 03/11/15 Aspirin 81 mg PO QHS 12/03/16 B Complex W-C No.20/Folic Acid [Nephrocaps Softgel] 1 mg PO DAILY 12/03/16 Cinacalcet HCl [Sensipar 30 mg Tablet] 60 mg PO QHS 12/03/16 Ergocalciferol (Vitamin D2) [Vitamin D2] 50,000 unit PO ASDIR 12/03/16 Gabapentin 100 mg PO TID 12/03/16 Levothyroxine Sodium [Synthroid] 137 mcg PO QAM 12/03/16 Warfarin Sodium [Coumadin 1 mg Tablet] 4 mg PO DAILY 07/18/17 Calcium Citrate [Calcitrate] 200 mg PO DAILY 09/05/17 Hydromorphone HCl 2 mg PO TID PRN 09/05/17 Allergies/Adverse Reactions: amlodipine besylate [From Norvasc] Allergy (Severe, Verified 09/23/17 11:38) Hives diphenhydramine HCl [From Benadryl] Allergy (Severe, Verified 09/23/17 11:38) Hives heparin (porcine) [Heparin,Porcine] Allergy (Severe, Verified 09/23/17 11:38) Fever losartan [Losartan] Allergy (Severe, Verified 09/23/17 11:38) unsure Pork/Porcine Containing Products [Pork/Porcine Product Derivatives] Allergy (Severe, Verified 09/23/17 11:38) formoterol fumarate [From Dulera] Adverse Reaction (Severe, Verified 09/23/17 11:38) Tachycardia mometasone furoate [From Dulera] Adverse Reaction (Severe, Verified 09/23/17 11:38) Tachycardia ppd Allergy (Severe, Uncoded 09/23/17 11:38) converter Review of Systems Constitutional: PRESENT: as per HPI, fatigue, weight gain. ABSENT: fever(s), headache(s), night sweats, weakness Eyes: ABSENT: visual disturbances Ears: ABSENT: hearing changes Cardiovascular: PRESENT: as per HPI, dyspnea on exertion, edema, orthropnea. ABSENT: palpitations Respiratory: PRESENT: as per HPI, cough, dyspnea. ABSENT: sputum Gastrointestinal: ABSENT: abdominal pain, constipation, diarrhea, hematemesis, hematochezia, nausea, vomiting Genitourinary: ABSENT: dysuria, hematuria Musculoskeletal: ABSENT: joint swelling Integumentary: ABSENT: rash, wounds Neurological: ABSENT: abnormal gait, abnormal speech, confusion, dizziness, focal weakness, syncope Psychiatric: ABSENT: anxiety, depression, homidical ideation, suicidal ideation Endocrine: ABSENT: cold intolerance, heat intolerance, polydipsia, polyuria Hematologic/Lymphatic: ABSENT: easy bleeding, easy bruising Physical Exam Vital Signs: Temp Pulse Resp BP Pulse Ox 97.2 F 70 23 H 132/48 H 100 07/11/18 03:25 07/11/18 04:00 07/11/18 03:25 07/11/18 04:00 07/11/18 03:25 Intake & Output 07/09/18 07/10/18 07/11/18 11:59 11:59 11:59 Intake Total 1276 Balance 1276 Weight 109.7 kg General appearance: PRESENT: cooperative, mild distress, morbidly obese, well- developed, well-nourished Head exam: PRESENT: atraumatic, normocephalic Eye exam: PRESENT: conjunctiva pink, EOMI, PERRLA. ABSENT: scleral icterus Ear exam: PRESENT: normal external ear exam Mouth exam: PRESENT: moist, tongue midline Neck exam: PRESENT: full ROM, JVD. ABSENT: carotid bruit Respiratory exam: PRESENT: accessory muscle use, crackles, prolonged expiratory phas, retraction, symmetrical, tachypnea. ABSENT: rhonchi, wheezes Cardiovascular exam: PRESENT: gallop, RRR. ABSENT: diastolic murmur, rubs, systolic murmur Pulses: PRESENT: normal dorsalis pedis pul Vascular exam: PRESENT: normal capillary refill GI/Abdominal exam: PRESENT: normal bowel sounds, soft. ABSENT: distended, guarding, mass, organolmegaly, rebound, tenderness Rectal exam: PRESENT: deferred Extremities exam: PRESENT: full ROM, +2 edema. ABSENT: calf tenderness, clubbing Neurological exam: PRESENT: alert, awake, oriented to person, oriented to place, oriented to time, oriented to situation, CN II-XII grossly intact. ABSENT: motor sensory deficit Psychiatric exam: PRESENT: appropriate affect, normal mood. ABSENT: homicidal ideation, suicidal ideation Skin exam: PRESENT: dry, intact, warm. ABSENT: cyanosis, rash Results Laboratory Results: 07/11/18 02:47 07/11/18 02:47 07/10/18 07/10/18 07/10/18 17:01 17:01 17:01 WBC 3.6 L RBC 2.87 L Hgb 9.8 L Hct 29.3 L MCV 102 H MCH 34.2 H MCHC 33.5 RDW 17.7 H Plt Count 108 L Seg Neutrophils % 82.2 H Lymphocytes % 13.9 Monocytes % 3.4 Eosinophils % 0.0 Basophils % 0.5 Absolute Neutrophils 2.9 Absolute Lymphocytes 0.5 Absolute Monocytes 0.1 Absolute Eosinophils 0.0 Absolute Basophils 0.0 VBG pH 7.38 VBG pCO2 41.1 VBG HCO3 23.7 VBG Base Excess -1.4 Sodium 132.5 L Potassium 4.8 Chloride 90 L Carbon Dioxide 29 Anion Gap 14 BUN 62 H Creatinine 7.21 H Est GFR ( Amer) 7 L Est GFR (Non-Af Amer) 6 L Glucose 506 H* Calcium 7.9 L Total Bilirubin 0.9 AST 44 H ALT 48 Alkaline Phosphatase 150 H Total Protein 6.9 Albumin 3.9 07/11/18 07/11/18 02:47 02:47 WBC 4.2 RBC 2.73 L Hgb 9.4 L Hct 27.3 L MCV 100 H MCH 34.3 H MCHC 34.3 RDW 17.4 H Plt Count 102 L Seg Neutrophils % 76.7 Lymphocytes % 20.0 Monocytes % 3.1 Eosinophils % 0.0 Basophils % 0.2 Absolute Neutrophils 3.2 Absolute Lymphocytes 0.8 Absolute Monocytes 0.1 Absolute Eosinophils 0.0 Absolute Basophils 0.0 VBG pH VBG pCO2 VBG HCO3 VBG Base Excess Sodium 133.9 L Potassium 4.0 Chloride 96 L Carbon Dioxide 23 Anion Gap 15 BUN 65 H Creatinine 7.75 H Est GFR ( Amer) 6 L Est GFR (Non-Af Amer) 5 L Glucose 307 H Calcium 8.2 L Total Bilirubin 0.8 AST 32 ALT 46 Alkaline Phosphatase 138 H Total Protein 6.5 Albumin 3.8 07/10/18 07/10/18 17:01 17:01 Troponin I 0.022 NT-Pro-B Natriuret Pep [id number] H Impressions: Chest X-Ray 07/10/18 20:18 IMPRESSION: No acute disease. Assessment and Plan - Diagnosis (1) Malignant hypertension Is this a current diagnosis for this admission?: Yes Plan: Suspected cause of shortness of breath with high output and volume overload date. Hydralazine, nitrates, BiPAP. (2) End stage renal disease on dialysis Is this a current diagnosis for this admission?: Yes Plan: Limit p.o. intake, nephrology consult for emergent dialysis. (3) Respiratory distress Is this a current diagnosis for this admission?: Yes Plan: Likely secondary to malignant hypertension, however history of tobacco and marijuana, continue albuterol and Atrovent as needed, supplemental oxygen, incentive spirometry, flutter valve and prednisone taper (4) Mechanical heart valve present Is this a current diagnosis for this admission?: Yes Plan: Coumadin 4 mg nightly (5) Diabetes Is this a current diagnosis for this admission?: Yes Plan: Humalog sliding scale every 6 hours. - Time Time Spent with patient: 35 or more minutes - Inpatient Certification Medical Necessity: Need Close Monitoring Due to Risk of Patient Decompensation
[2018-07-11] MEDS: HEPARIN SOD (PORCINE) 5,000 UNIT/ML 1 ML SYRINGE SUBCUT SCH (05:45)
[2018-07-11] MEDS ORDERED: LEVOTHYROXINE SODIUM 0.1 MG TABLET PO SCH (06:00)
[2018-07-11] MEDS ORDERED: LEVOTHYROXINE SODIUM 0.075 MG TABLET PO SCH (06:00)
[2018-07-11] MEDS: IPRATROPIUM/ALBUTEROL 0.5-2.5 MG/3 ML AMPUL NEB PRN (06:21)
--- NOTE | 2018-07-11 09:33 | RADIOLOGY REPORT (SQ) ---
EXAM DESCRIPTION: CHEST 2 VIEWS COMPLETED DATE/TIME: 07/11/2018 9:23 am REASON FOR STUDY: SOB COMPARISON: 07/10/2018. EXAM PARAMETERS: NUMBER OF VIEWS: two views TECHNIQUE: Digital Frontal and Lateral radiographic views of the chest acquired. RADIATION DOSE: NA LIMITATIONS: none FINDINGS: LUNGS AND PLEURA: Mild diffuse interstitial prominence. No focal infiltrates, masses or p neumothorax. No pleural effusion. MEDIASTINUM AND HILAR STRUCTURES: No masses or contour abnormalities. HEART AND VASCULAR STRUCTURES: Heart upper limits of normal size. No evidence for failure. BONES: No acute findings. HARDWARE: Sternotomy wires and prosthetic valve. OTHER: No other significant finding. IMPRESSION: MILD DIFFUSE INTERSTITIAL PROMINENCE PROBABLY CHRONIC. CANNOT EXCLUDE MILD INTERSTITIAL EDEMA. OTHERWISE NO ACUTE FINDINGS. TECHNICAL DOCUMENTATION: JOB ID: [id number] [employer]- All Rights Reserved Reading location - IP/workstation name: [email or web address]
[2018-07-11] MEDS ORDERED: CALCIUM CARBONATE 500 MG TABLET PO SCH (10:00)
[2018-07-11] MEDS ORDERED: GABAPENTIN 100 MG CAPSULE PO SCH (10:00)
[2018-07-11] MEDS ORDERED: SEVELAMER CARBONATE PO SCH (10:00)
[2018-07-11] MEDS: CARVEDILOL 12.5 MG TABLET PO SCH ×2 (10:58→21:58)
[2018-07-11] MEDS: DOCUSATE SODIUM 100 MG CAPSULE PO SCH (10:59)
[2018-07-11] MEDS: PREDNISONE 10 MG TABLET PO SCH ×2 (10:59→17:15)
[2018-07-11] MEDS: BENZOCAINE/MENTHOL SORE THROAT LOZENGE BUCCAL PRN ×2 (11:04→17:59)
--- NOTE | 2018-07-11 12:04 | PDOC CONSULTATION ---
Consultation Consult Date: 07/11/18 Attending physician:: JENNIFFER POON Consult reason:: I was asked to see the patient for evaluation for need for hemodialysis in a patient with history of ESRD admitted for respiratory distress. History of Present Illness Admission Date/PCP: 07/10/18 21:33 History of Present Illness: PER DEXTER is a 62 year old female is known to me with history of end-stage renal disease on maintenance hemodialysis on Tuesdays, and Saturdays, history of diabetic nephropathy, diabetes mellitus type 2, hypertension, asthma, and aortic valve replacement with mechanical valve on anticoagulation who presented to the emergency room because of acute shortness of breath. Patient relates that she started having upper respiratory symptoms since about a week a go for which she went to urgent care and was given azithromycin and prednisone on a tapering dose. She said she had a nasal swab test done and was told she has positive for flu. Yesterday she said she went to the emergency room because she was short of breath and wheezing and her nebulization medication has . She has some dry cough for a week and poor appetite. In the emergency room she was hypotensive with blood pressure of 208/66 and hypoxic with oxygen saturation of 87. For her breathing she was given albuterol and Atrovent nebulization treatment, magnesium, and unfortunately was given 2 L of IV fluids. She was also started on nitroglycerin drip for her blood pressure. She was initially on BiPAP as well. Today she admits that her breathing is actually better than yesterday. Her blood pressure is also better controlled. She denies any nausea or vomiting or diarrhea. Her appetite is not as good. She was upset because she was given 2 L of IV fluids and her dry weight is 105.5 kg. Today she is 110.4 kg. Earlier she was almost screaming telling Jenniffer Poon, RICARDO and the nurse that she needs dialysis today. Her last completed hemodialysis treatment was Tuesday and she is due for dialysis today. She reports leg cramping and feels like she needs dialysis. When I entered the room today she is actually comfortable on room air and speaking in complete sentences. She might get short of breath on some exertion. I immediately ordered chest x-ray PA and lateral stat to see if there is any objective sign of acute pulmonary edema that would require acute hemodialysis treatment today. Her electrolytes are acceptable. 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 ASTHMA, Chronic Obstructive Pulmonary Disease (COPD), Sleep Apnea Endocrine Medical History: Reports: Diabetes Mellitus Type 2, Hypothyroidism Complications of Diabetes: Reports: Autonomic Neuropathy, Nephropathy, Retinopathy Renal/ Medical History: Reports: End Stage Renal Disease, Hyperphosphatemia, Renal Osteodystropy, Secondary Hyperparathyroidism GI Medical History: Reports: Hepatitis - Hepatitis C Musculoskeltal Medical History: Reports: Arthritis - ALL OVER Psychiatric Medical History: Reports: Depression, General Anxiety Disorder Infectious Medical History: Reports: Hepatitis C Hematology Medical History: Reports Anemia of Chronic Kidney Disease Past Surgical History Past Surgical History: Reports: Cardiac Catheterization, Cholecystectomy, Dialysis Access Surgery AVF, Hysterectomy, Orthopedic Surgery - Arthroplasty of right elbow, Tonsillectomy, Valve Replacement - Mechanical aortic valve on March 30, 2012, Vascular Surgery - PermCath placement for dialysis, Other - History of myomectomy in 1994 Social History Information Source: Patient Lives with: Alone Smoking Status: Former Smoker Cigarettes Packs Per Day: 1 Number of Years Smokin Last Time Smoked: 1979 Frequency of Alcohol Use: None Hx Recreational Drug Use: Yes Drugs: Marijuana Hx Prescription Drug Abuse: No - Advance Directive Resuscitation Status: Full Code Family History Family History: CAD - Father, Chronic Kidney Disease - Father, DM - Mother Parental Family History Reviewed: Yes Children Family History Reviewed: NA Sibling(s) Family History Reviewed.: Yes Medication/Allergy Home Medications: Albuterol Sulfate [Proair Hfa Inhalation Aerosol 8.5 gm Mdi] 2 puff IH Q6HP PRN 07/11/18 Albuterol Sulfate [Ventolin 0.083% Neb 2.5 mg/3 ml Ampul] 1 vial NEB RTQ6HP PRN 07/11/18 Aspirin [Aspirin 81 mg Chewable Tablet] 81 mg PO QHS 07/11/18 B Complex W-C No.20/Folic Acid [Renal Caps Softgel] 1 mg PO DAILY 07/11/18 Bisacodyl [Dulcolax 5 Mg Tablet] 5 mg PO DAILYP PRN 07/11/18 Calcitriol [Rocaltrol 0.25 Mcg Capsule] 1 cap PO DAILY 07/11/18 Carvedilol [Coreg 25 mg Tablet] 1 tab PO Q12 07/11/18 Cinacalcet HCl [Sensipar] 60 mg PO QHS 07/11/18 Ergocalciferol (Vitamin D2) [Drisdol 50,000 Unit (1.25MG) Capsule] 50,000 unit PO SA@1000 07/11/18 Hydromorphone HCl [Dilaudid 2 mg Tablet] 2 mg PO Q8HP PRN 07/11/18 Levothyroxine Sodium [Synthroid] 125 mcg PO Q6AM 07/11/18 Sevelamer Carbonate [Renvela] 2,400 mg PO MEALS 07/11/18 Sevelamer Carbonate [Renvela] 800 mg PO BIDP PRN 07/11/18 Warfarin Sodium [Coumadin 4 mg Tablet] 4 mg PO QPM 07/11/18 Allergies/Adverse Reactions: amlodipine besylate [From Norvasc] Allergy (Severe, Verified 09/23/17 11:38) Hives diphenhydramine HCl [From Benadryl] Allergy (Severe, Verified 09/23/17 11:38) Hives heparin (porcine) [Heparin,Porcine] Allergy (Severe, Verified 09/23/17 11:38) Fever losartan [Losartan] Allergy (Severe, Verified 09/23/17 11:38) unsure Pork/Porcine Containing Products [Pork/Porcine Product Derivatives] Allergy (Severe, Verified 09/23/17 11:38) formoterol fumarate [From Dulera] Adverse Reaction (Severe, Verified 09/23/17 11:38) Tachycardia mometasone furoate [From Dulera] Adverse Reaction (Severe, Verified 09/23/17 11:38) Tachycardia ppd Allergy (Severe, Uncoded 09/23/17 11:38) converter Review of Systems All systems: reviewed and no additional remarkable complaints except as stated Review of Systems: Constitutional: ABSENT: chills, fatigue, fever(s), headache(s), weight gain, weight loss; admits decreased appetite Eyes: ABSENT: visual disturbances Ears: ABSENT: hearing changes Cardiovascular: ABSENT: chest pain, dyspnea on exertion, orthropnea, palpitations; admits lower extremity edema worse overnight Respiratory: ABSENT: Hemoptysis; admits dry cough, dyspnea Gastrointestinal: ABSENT: abdominal pain, constipation, diarrhea, hematemesis, hematochezia, nausea, vomiting Genitourinary: ABSENT: dysuria, hematuria Musculoskeletal: ABSENT: joint swelling Integumentary: ABSENT: rash, wounds Neurological: ABSENT: abnormal gait, abnormal speech, confusion, dizziness, focal weakness, numbness, syncope Psychiatric: ABSENT: anxiety, depression Endocrine: ABSENT: cold intolerance, heat intolerance, polydipsia, polyuria Hematologic/Lymphatic: ABSENT: easy bleeding, easy bruising, lymphadenopathy Physical Exam Vital Signs: Temp Pulse Resp BP Pulse Ox 97.6 F 65 16 135/45 H 100 07/11/18 07:45 07/11/18 07:45 07/11/18 07:45 07/11/18 07:45 07/11/18 07:45 Intake & Output 07/10/18 07/11/18 07/12/18 06:59 06:59 06:59 Intake Total 1303 Balance 1303 Weight 110.4 kg Exam: General appearance: No acute distress, cooperative, well-developed, well- nourished Head exam: PRESENT: atraumatic, normocephalic Eye exam: PRESENT: Conjunctiva slightly pale, EOMI, PERRLA. ABSENT: conjun ctival injection, scleral icterus Mouth exam: PRESENT: moist, neck supple, tongue midline Neck exam: PRESENT: full ROM. ABSENT: carotid bruit, JVD, lymphadenopathy, thyromegaly Respiratory exam: PRESENT: Coarse breath sounds to auscultation bilaterally. ABSENT: rales, rhonchi, stridor, wheezes Cardiovascular exam: PRESENT: RRR, +S1, +S2. Grade 2/6 systolic murmur Pulses: PRESENT: normal radial pulses, normal dorsalis pedis pulses GI/Abdominal exam: PRESENT: normal bowel sounds, soft. ABSENT: guarding, mass, tenderness Rectal exam: Deferred Extremities exam: PRESENT: full ROM. Grade 1 bilateral lower extremity pitting edema ABSENT: calf tenderness Musculoskeletal: PRESENT: full ROM. ABSENT: deformity Neurological exam: PRESENT: alert, Awake, Oriented to person, Oriented to place, Oriented to time, reflexes normal, CN II-XII grossly intact. ABSENT: motor sensory deficit Psychiatric exam: PRESENT: appropriate affect, normal mood. ABSENT: homicidal ideation, suicidal ideation Skin exam: PRESENT: intact, dry, warm. ABSENT: rash Results Laboratory Results: 07/11/18 02:47 07/11/18 02:47 07/10/18 07/10/18 07/10/18 17:01 17:01 17:01 WBC 3.6 L RBC 2.87 L Hgb 9.8 L Hct 29.3 L MCV 102 H MCH 34.2 H MCHC 33.5 RDW 17.7 H Plt Count 108 L Seg Neutrophils % 82.2 H Lymphocytes % 13.9 Monocytes % 3.4 Eosinophils % 0.0 Basophils % 0.5 Absolute Neutrophils 2.9 Absolute Lymphocytes 0.5 Absolute Monocytes 0.1 Absolute Eosinophils 0.0 Absolute Basophils 0.0 VBG pH 7.38 VBG pCO2 41.1 VBG HCO3 23.7 VBG Base Excess -1.4 Sodium 132.5 L Potassium 4.8 Chloride 90 L Carbon Dioxide 29 Anion Gap 14 BUN 62 H Creatinine 7.21 H Est GFR ( Amer) 7 L Est GFR (Non-Af Amer) 6 L Glucose 506 H* Calcium 7.9 L Total Bilirubin 0.9 AST 44 H ALT 48 Alkaline Phosphatase 150 H Total Protein 6.9 Albumin 3.9 07/11/18 07/11/18 02:47 02:47 WBC 4.2 RBC 2.73 L Hgb 9.4 L Hct 27.3 L MCV 100 H MCH 34.3 H MCHC 34.3 RDW 17.4 H Plt Count 102 L Seg Neutrophils % 76.7 Lymphocytes % 20.0 Monocytes % 3.1 Eosinophils % 0.0 Basophils % 0.2 Absolute Neutrophils 3.2 Absolute Lymphocytes 0.8 Absolute Monocytes 0.1 Absolute Eosinophils 0.0 Absolute Basophils 0.0 VBG pH VBG pCO2 VBG HCO3 VBG Base Excess Sodium 133.9 L Potassium 4.0 Chloride 96 L Carbon Dioxide 23 Anion Gap 15 BUN 65 H Creatinine 7.75 H Est GFR ( Amer) 6 L Est GFR (Non-Af Amer) 5 L Glucose 307 H Calcium 8.2 L Total Bilirubin 0.8 AST 32 ALT 46 Alkaline Phosphatase 138 H Total Protein 6.5 Albumin 3.8 07/10/18 07/10/18 17:01 17:01 Troponin I 0.022 NT-Pro-B Natriuret Pep 61017 H Impressions: Chest X-Ray 07/10/18 20:18 IMPRESSION: No acute disease. Assessment & Plan - Diagnosis (1) Respiratory distress Is this a current diagnosis for this admission?: Yes Plan: This is most likely related to her upper respiratory symptoms as well as poss ible acute asthma exacerbation when she presented. I do not think she presented with fluid overload on presentation to the emergency room yesterday. She was given 2 L of IV fluids in the emergency room her repeat chest x-ray today shows some interstitial edema but not in overt pulmonary edema or pulmonary vascular congestion. So I do not think she needs an emergent hemodialysis today. Needs to continue treatment for her upper respiratory symptoms. Defer to primary service. (2) Asthma Is this a current diagnosis for this admission?: Yes Plan: Currently on low-dose prednisone. Probably needs nebulization treatment during this hospitalization. (3) End-stage renal disease on hemodialysis Is this a current diagnosis for this admission?: Yes Plan: She does not need an urgent or emergent hemodialysis treatment to her ultrafiltration today. We will plan to do dialysis tomorrow morning. (4) Hypertension Is this a current diagnosis for this admission?: Yes Plan: Improved and currently controlled. Continue her home blood pressure medications. Taper off nitroglycerin drip. (5) Diabetes Is this a current diagnosis for this admission?: Yes (6) Mechanical heart valve present Is this a current diagnosis for this admission?: Yes Plan: Needs to continue her anticoagulation. Check PT and INR. - Notes Notes: Thank you very much for this consultation. We will follow patient with you. - Time Time Spent: Greater than 70 Minutes
[2018-07-11] MEDS ORDERED: ALBUTEROL SULFATE 0.083% NEB 2.5 MG/3 ML AMPUL NEB PRN (12:09)
[2018-07-11] MEDS ORDERED: (PENDING PHARMACY ID) (Sevelamer Carbonate [Renvela] 2,400 MG) PO SCH (12:15)
[2018-07-11 13:26] LABS: PROTHROMBIN TIME 35.1 SEC (11.4-15.4)
[2018-07-11] MEDS: CALCITRIOL 0.25 MCG CAPSULE PO SCH (13:32)
[2018-07-11] MEDS ORDERED: SEVELAMER HCL 800 MG TABLET PO SCH (14:00)
--- NOTE | 2018-07-11 17:10 | PDOC PROGRESS REPORT ---
Subjective Progress Note for:: 07/11/18 Subjective:: PER DEXTER is a 62 year old female with a past medical history of morbid obesity, hemodialysis dependent end-stage renal failure, aortic valve replacement on Coumadin, diabetes and hypertension. She is admitted to the hospitalist service for a COPD exacerbation on BiPAP, malignant hypertension on nitro GTT , ESRD/volume overload. Patient was seen this morning on rounds, she is sitting on the edge of the bed and is breathing comfortably on room air. She appears very agitated, stating that she needs her dialysis today. She states that she feels "overloaded." She is currently yelling at nursing staff and refusing all treatment (BIPAP, insulin, phlebotomy). Lungs are coarse and rhonchorous to auscultation. There is no evidence of central or peripheral cyanosis. Consulted with Dr. Coley (patient's maintenance shop technician) who agreed to come and evaluate the patient for HD. The decision was made to dialyze the patient tomorrow as she is not in any respi ratory distress, nor does her lab work indicate the need for emergent dialysis. Reason For Visit: ESRD VOLUME OVERLOAD Physical Exam Vital Signs: Temp Pulse Resp BP Pulse Ox 98.1 F 73 21 H 145/44 H 98 07/11/18 15:01 07/11/18 15:01 07/11/18 15:01 07/11/18 15:01 07/11/18 15:01 Intake & Output 07/10/18 07/11/18 07/12/18 06:59 06:59 06:59 Intake Total 1303 278 Balance 1303 278 Weight 110.4 kg General appearance: PRESENT: obese Eye exam: PRESENT: conjunctiva pink, PERRLA Mouth exam: PRESENT: moist, tongue midline Neck exam: PRESENT: full ROM Respiratory exam: PRESENT: rhonchi, symmetrical, unlabored Cardiovascular exam: PRESENT: RRR Pulses: PRESENT: normal radial pulses Vascular exam: PRESENT: normal capillary refill. ABSENT: pallor GI/Abdominal exam: PRESENT: other - Rotund. Obese. Rectal exam: PRESENT: deferred Extremities exam: PRESENT: full ROM, pedal edema Musculoskeletal exam: PRESENT: ambulatory, full ROM Neurological exam: PRESENT: alert, awake, oriented to person, oriented to place, oriented to time, oriented to situation Skin exam: PRESENT: dry, intact, normal color Results Laboratory Results: 07/11/18 02:47 07/11/18 02:47 07/10/18 07/10/18 07/10/18 17:01 17:01 17:01 WBC 3.6 L RBC 2.87 L Hgb 9.8 L Hct 29.3 L MCV 102 H MCH 34.2 H MCHC 33.5 RDW 17.7 H Plt Count 108 L Seg Neutrophils % 82.2 H Lymphocytes % 13.9 Monocytes % 3.4 Eosinophils % 0.0 Basophils % 0.5 Absolute Neutrophils 2.9 Absolute Lymphocytes 0.5 Absolute Monocytes 0.1 Absolute Eosinophils 0.0 Absolute Basophils 0.0 VBG pH 7.38 VBG pCO2 41.1 VBG HCO3 23.7 VBG Base Excess -1.4 Sodium 132.5 L Potassium 4.8 Chloride 90 L Carbon Dioxide 29 Anion Gap 14 BUN 62 H Creatinine 7.21 H Est GFR ( Amer) 7 L Est GFR (Non-Af Amer) 6 L Glucose 506 H* Calcium 7.9 L Total Bilirubin 0.9 AST 44 H ALT 48 Alkaline Phosphatase 150 H Total Protein 6.9 Albumin 3.9 07/11/18 07/11/18 02:47 02:47 WBC 4.2 RBC 2.73 L Hgb 9.4 L Hct 27.3 L MCV 100 H MCH 34.3 H MCHC 34.3 RDW 17.4 H Plt Count 102 L Seg Neutrophils % 76.7 Lymphocytes % 20.0 Monocytes % 3.1 Eosinophils % 0.0 Basophils % 0.2 Absolute Neutrophils 3.2 Absolute Lymphocytes 0.8 Absolute Monocytes 0.1 Absolute Eosinophils 0.0 Absolute Basophils 0.0 VBG pH VBG pCO2 VBG HCO3 VBG Base Excess Sodium 133.9 L Potassium 4.0 Chloride 96 L Carbon Dioxide 23 Anion Gap 15 BUN 65 H Creatinine 7.75 H Est GFR ( Amer) 6 L Est GFR (Non-Af Amer) 5 L Glucose 307 H Calcium 8.2 L Total Bilirubin 0.8 AST 32 ALT 46 Alkaline Phosphatase 138 H Total Protein 6.5 Albumin 3.8 07/10/18 07/10/18 17:01 17:01 Troponin I 0.022 NT-Pro-B Natriuret Pep [id number] H Impressions: Chest X-Ray 07/11/18 00:00 IMPRESSION: MILD DIFFUSE INTERSTITIAL PROMINENCE PROBABLY CHRONIC. CANNOT EXCLUDE MILD INTERSTITIAL EDEMA. OTHERWISE NO ACUTE FINDINGS. Status: Imported from PACS Assessment and Plan - Diagnosis (1) Malignant hypertension Is this a current diagnosis for this admission?: Yes Plan: SBP>200 Initiated nitroglycerin GTT in emergency department to control blood pressure Suspect that this is the culprit of patient's SOB Stemming from volume overloaded state Plan for dialysis tomorrow (2) End stage renal disease on dialysis Is this a current diagnosis for this admission?: Yes Plan: ESRD Tuesday, , Tuesday schedule Current creatinine 7.75 Creatinine range in the last calendar year 5.7-8.2 Dr. Coley consulted, no plan for emergent dialysis Dialysis tomorrow (3) Respiratory distress Is this a current diagnosis for this admission?: Yes Plan: Secondary to COPD exacerbation versus malignant hypertension Nitroglycerin GTT to treat HTN PRN nebulizer treatments Supplemental oxygen via BiPAP P.o. prednisone Incentive spirometry Flutter valve (4) Mechanical heart valve present Is this a current diagnosis for this admission?: Yes Plan: Coumadin 4 mg nightly Check INR in a.m. (5) Diabetes Qualifiers: Diabetes mellitus type: type 2 Diabetes mellitus complication status: without complication Is this a current diagnosis for this admission?: Yes Plan: Accu-Cheks AC at bedtime Humalog sliding scale Hemoglobin A1c with a.m. labs - Time Time Spent with patient: 15-24 minutes Medications reviewed and adjusted accordingly: Yes Anticipated discharge: Home Within: within 72 hours - Inpatient Certification Based on my medical assessment, after consideration of the patient's comorbidit ies, presenting symptoms, or acuity I expect that the services needed warrant INPATIENT care.: Yes I certify that my determination is in accordance with my understanding of [employer] [facility]'s requirements for reasonable and necessary INPATIENT services [42 CFR 412.3e].: Yes Medical Necessity: Risk of Complication if Not Cared For in Hospital
[2018-07-11] MEDS: SEVELAMER HCL 800 MG TABLET PO SCH (17:14)
[2018-07-11] MEDS: WARFARIN SODIUM 4 MG TABLET PO SCH (17:15)
[2018-07-11] MEDS ORDERED: INSULIN LISPRO 100 UNIT/ML 3 ML VIAL SUBCUT ONE (17:30)
[2018-07-11] MEDS ORDERED: (PENDING PHARMACY ID) (Warfarin Sodium 4 MG) PO SCH (18:00)
[2018-07-11] MEDS ORDERED: TEMAZEPAM 15 MG CAPSULE PO PRN (20:00)
[2018-07-11] MEDS: HYDROMORPHONE HCL INJ/PF 2 MG/ML AMPULE IV PRN (20:43)
[2018-07-11] MEDS: CINACALCET HCL 30 MG TABLET PO SCH (21:57)
[2018-07-11] MEDS ORDERED: ASPIRIN 81 MG TABLET, CHEWABLE PO SCH (22:00)
[2018-07-12] MEDS: HYDROMORPHONE HCL INJ/PF 2 MG/ML AMPULE IV PRN (03:53)
[2018-07-12] MEDS ORDERED: EPOETIN ALFA INJ 20000 UNIT/1 ML VIAL (RENAL) IV PRN (05:00)
[2018-07-12] MEDS ORDERED: NORMAL SALINE 1000 ML 1,000 ML IV PRN (05:00)
[2018-07-12] MEDS ORDERED: LEVOTHYROXINE SODIUM 0.025 MG TABLET PO SCH (06:00)
[2018-07-12] MEDS ORDERED: LEVOTHYROXINE SODIUM 0.1 MG TABLET PO SCH (06:00)
[2018-07-12] MEDS ORDERED: (PENDING PHARMACY ID) (Levothyroxine Sodium [Synthroid] 125 MCG) PO SCH (06:00)
[2018-07-12 07:25] LABS: INTERNATIONAL RATION (INR) 3.41
[2018-07-12 07:45] LABS: HEMATOCRIT 28.3 % (36.0-47.0); HEMOGLOBIN 9.7 g/dL (12.0-15.5); MEAN CORPUSCULAR HEMOGLOBIN 34.4 pg (27.0-33.4); MEAN CORPUSCULAR HGB CONC 34.4 g/dL (32.0-36.0); MEAN CORPUSCULAR VOLUME 100 fl (80-97); PLATELET COUNT 111 10^3/uL (150-450); RED BLOOD COUNT 2.83 10^6/uL (3.72-5.28); RED CELL DISTRIBUTION WIDTH 17.5 % (11.5-14.0); WHITE BLOOD COUNT 5.4 10^3/uL (4.0-10.5)
[2018-07-12 07:46] LABS: ALANINE AMINOTRANSFERASE 43 U/L (9-52); ALBUMIN 3.8 g/dL (3.5-5.0); ALKALINE PHOSPHATASE 154 U/L (38-126); ANION GAP 15 (5-19); ASPARTATE AMINO TRANSFERASE 32 U/L (14-36); BILIRUBIN,DIRECT 0.7 mg/dL (0.0-0.4); BILIRUBIN,TOTAL 0.8 mg/dL (0.2-1.3); BLOOD UREA NITROGEN 84 mg/dL (7-20); CALCIUM 7.9 mg/dL (8.4-10.2); CARBON DIOXIDE 24 mmol/L (22-30); CHLORIDE 94 mmol/L (98-107); GLUCOSE 233 mg/dL (75-110); PHOSPHORUS 4.7 mg/dL (2.5-4.5); POTASSIUM 4.9 mmol/L (3.6-5.0); SODIUM 133.3 mmol/L (137-145); TOTAL PROTEIN 6.5 g/dL (6.3-8.2)
[2018-07-12] MEDS: SEVELAMER HCL 800 MG TABLET PO SCH ×3 (09:16→17:06)
[2018-07-12] MEDS: INSULIN LISPRO 100 UNIT/ML 3 ML VIAL SUBCUT SCH ×3 (09:16→17:05)
--- NOTE | 2018-07-12 09:16 | PDOC PROGRESS REPORT ---
Subjective Progress Note for:: 07/12/18 Subjective:: I am seeing the patient during dialysis treatment this morning. She is quite comfortable on oxygen with nasal cannula at 2 L. Her blood pressure is still elevated. We are getting ultrafiltration, goal will be 4-5 L today. She is tolerating dialysis well. She said her breathing is okay. She wanted to go home. Reason For Visit: ESRD VOLUME OVERLOAD Physical Exam Vital Signs: Temp Pulse Resp BP Pulse Ox 97.5 F 71 18 154/57 H 100 07/12/18 03:26 07/12/18 06:50 07/12/18 03:26 07/12/18 04:43 07/12/18 03:26 Intake & Output 07/11/18 07/12/18 07/13/18 06:59 06:59 06:59 Intake Total 1303 750 Balance 1303 750 Weight 110.4 kg Vitals during dialysis, blood pressure 174/62, heart rate of 67, blood flow rate of 500 mL/min, dialysate flow rate of 800 mL/min. Exam: General appearance: PRESENT: no acute distress, cooperative, well-developed, well-nourished Head exam: PRESENT: atraumatic, normocephalic Eye exam: PRESENT: conjunctiva pink, PERRLA. ABSENT: scleral icterus Neck exam: ABSENT: JVD Respiratory exam: PRESENT: Diminished and improve breath sounds. Occasional minimal expiratory wheeze, no crackles ABSENT: crackles, rales, rhonchi, unlabored Cardiovascular exam: PRESENT: Regular rate rhythm -+S1, +S2. Grade 2/6 systolic murmur GI/Abdominal exam: PRESENT: normal bowel sounds, soft. ABSENT: guarding, mass, tenderness Extremities exam: Grade 1 bilateral lower extremity pitting edema Neurological exam: PRESENT: alert, awake, oriented to person, place and time. Skin exam: PRESENT: dry, warm, she has bruising on the left side of her abdomen and few on her lower extremities. Results Laboratory Results: 07/12/18 06:16 07/12/18 06:16 07/12/18 07/12/18 06:16 06:16 WBC 5.4 RBC 2.83 L Hgb 9.7 L Hct 28.3 L MCV 100 H MCH 34.4 H MCHC 34.4 RDW 17.5 H Plt Count 111 L Sodium 133.3 L Potassium 4.9 Chloride 94 L Carbon Dioxide 24 Anion Gap 15 BUN 84 H Creatinine 9.40 H Est GFR ( Amer) 5 L Est GFR (Non-Af Amer) 4 L Glucose 233 H Calcium 7.9 L Phosphorus 4.7 H Magnesium 2.9 H Total Bilirubin 0.8 AST 32 ALT 43 Alkaline Phosphatase 154 H Total Protein 6.5 Albumin 3.8 07/10/18 07/10/18 17:01 17:01 Troponin I 0.022 NT-Pro-B Natriuret Pep [id number] H Impressions: Chest X-Ray 07/11/18 00:00 IMPRESSION: MILD DIFFUSE INTERSTITIAL PROMINENCE PROBABLY CHRONIC. CANNOT EXCLUDE MILD INTERSTITIAL EDEMA. OTHERWISE NO ACUTE FINDINGS. Assessment & Plan - Diagnosis (1) End-stage renal disease on hemodialysis Is this a current diagnosis for this admission?: Yes Plan: We will do dialysis today for 3.5 hours, using the patient's AV fistula, with 2 potassium bath, blood flow rate of 450-500 mL per minute, dialysate flow rate of 800 mL per minute, ultrafiltration 4-5 L as tolerated, no heparin and Procrit with 20,000 units during dialysis intravenously. She will be monitored continuously throughout dialysis treatment. Discussed treatment plan with her dialysis nurse. (2) Respiratory distress Is this a current diagnosis for this admission?: Yes Plan: Improved. Likely secondary to asthma exacerbation initially worsened by mild fluid overload. (3) Asthma Is this a current diagnosis for this admission?: Yes Plan: Continue current management per hospitalist service. (4) Hypertension Is this a current diagnosis for this admission?: Yes Plan: This is partly due to volume overload and additional stress due to asthma exacerbation. Hoping that ultrafiltration will help today. Continue her current medications. (5) Diabetes Qualifiers: Diabetes mellitus type: type 2 Diabetes mellitus complication status: without complication Is this a current diagnosis for this admission?: Yes Plan: Worsened by current steroids. Usually controlled and not on medication. (6) Mechanical heart valve present Is this a current diagnosis for this admission?: Yes Plan: On anticoagulation. - Notes Notes: From nephrology standpoint I think patient may be able to go home after dialysis today. If she goes home today she will continue her regular scheduled dialysis on Tuesday, and Saturdays so next regular scheduled dialysis will be tomorrow at [facility]. Patient will also follow-up with her primary care provider. - Time Time with patient: 15-25 minutes
[2018-07-12] MEDS ORDERED: ONDANSETRON HCL INJ/PF 4 MG/2 ML SDV IV ONE (09:18)
[2018-07-12] MEDS: CARVEDILOL 12.5 MG TABLET PO SCH (12:53)
[2018-07-12] MEDS: DOCUSATE SODIUM 100 MG CAPSULE PO SCH (12:54)
[2018-07-12] MEDS: PREDNISONE 10 MG TABLET PO SCH ×2 (12:54→17:06)
[2018-07-12] MEDS: CALCITRIOL 0.25 MCG CAPSULE PO SCH (12:54)
[2018-07-12] MEDS: BENZOCAINE/MENTHOL SORE THROAT LOZENGE BUCCAL PRN (15:25)
[2018-07-12] MEDS: IPRATROPIUM/ALBUTEROL 0.5-2.5 MG/3 ML AMPUL NEB PRN (16:00)
[2018-07-12 16:50] VITALS: BP 148/44
[2018-07-12] MEDS: WARFARIN SODIUM 4 MG TABLET PO SCH (17:06)
[2018-07-13 09:38] LABS: HEPATITS B SURFACE ANTIGEN Negative (Negative)
[2018-07-13 11:20] LABS: HEPATITIS B CORE AB TOT Negative (Negative); HEPATITIS B SURFACE AB QUAL Reactive (.)
--- NOTE | 2018-07-21 09:34 | PDOC DISCHARGE SUMMARY ---
General - Admit/Disc Date/PCP Admission Date/Primary Care Provider: 07/10/18 21:33 Discharge Date: 07/12/18 - Discharge Diagnosis (1) Hypertensive emergency Is this a current diagnosis for this admission?: Yes Summary: Secondary to hypervolemia as evidence by Pro-BNP >48,000, pulmonary edema seen on CXR, +1 pitting edema in lower extremities Placed on Nitroglycerin gtt for BP control Admitted to [facility] (2) Malignant hypertension Is this a current diagnosis for this admission?: Yes (3) End stage renal disease on dialysis Is this a current diagnosis for this admission?: Yes (4) Respiratory distress Is this a current diagnosis for this admission?: Yes (5) Mechanical heart valve present Is this a current diagnosis for this admission?: Yes (6) Diabetes Is this a current diagnosis for this admission?: Yes - Additional Information Resuscitation Status: Full Code Discharge Diet: Cardiac, Diabetic Discharge Activity: Activity As Tolerated Prescriptions: Albuterol Sulfate [Proventil 0.5% Neb 2.5 mg/0.5 ml Vial.neb] 2.5 mg NEB Q6HP PRN #25 vial.neb PRN Reason: Benzonatate [Tessalon Perle 100 mg Capsule] 100 mg PO Q8HP PRN #40 cap PRN Reason: Insulin Glargine,Hum.rec.anlog [Lantus Insulin 100 Unit/1 ml 10 ml] 0 unit SUBCUT QHS #4 unit Insulin Lispro [Humalog] 100 unit SQ ACHS #1 cartridge Oxymetazoline HCl [Afrin 0.05% Nasal Mulberry 15 ml Bottle] 2 - 3 spray NASL BID #1 bottle Home Medications: Albuterol Sulfate [Proair HFA Inhalation Aerosol 8.5 gm MDI] 2 puff IH Q6HP PRN 07/11/18 Albuterol Sulfate [Ventolin 0.083% Neb 2.5 mg/3 mL Ampul] 1 vial NEB RTQ6HP PRN 07/11/18 Aspirin [Aspirin 81 mg Chewable Tablet] 81 mg PO QHS 07/11/18 B Complex W-C No.20/Folic Acid [Renal Caps Softgel] 1 mg PO DAILY 07/11/18 Bisacodyl [Dulcolax 5 mg Tablet] 5 mg PO DAILYP PRN 07/11/18 Calcitriol [Rocaltrol 0.25 mcg Capsule] 1 cap PO DAILY 07/11/18 Carvedilol [Coreg 25 mg Tablet] 1 tab PO Q12 07/11/18 Cinacalcet HCl [Sensipar 60 mg Tablet] 60 mg PO QHS 07/11/18 Ergocalciferol (Vitamin D2) [Drisdol 50,000 unit (1.25MG) Capsule] 50,000 unit PO SA@1000 07/11/18 Hydromorphone HCl [Dilaudid 2 mg Tablet] 2 mg PO Q8HP PRN 07/11/18 Levothyroxine Sodium [Synthroid] 125 mcg PO Q6AM 07/11/18 Sevelamer Carbonate [Renvela] 2,400 mg PO MEALS 07/11/18 Sevelamer Carbonate [Renvela] 800 mg PO BIDP PRN 07/11/18 Warfarin Sodium [Coumadin 4 mg Tablet] 4 mg PO QPM 07/11/18 Albuterol Sulfate [Proventil 0.5% Neb 2.5 mg/0.5 ml Vial.neb] 2.5 mg NEB Q6HP PRN #25 vial.neb 07/12/18 Benzonatate [Tessalon Perle 100 mg Capsule] 100 mg PO Q8HP PRN #40 cap 07/12/18 Carvedilol [Coreg 12.5 mg Tablet] 25 mg PO Q12 tablet 07/12/18 Cinacalcet HCl [Sensipar 30 mg Tablet] 60 mg PO QHS tablet 07/12/18 Insulin Glargine,Hum.rec.anlog [Lantus Insulin 100 Unit/1 ml 10 ml] 0 unit SUBCUT QHS #4 unit 07/12/18 Insulin Lispro [Humalog] 100 unit SQ ACHS #1 cartridge 07/12/18 Oxymetazoline HCl [Afrin 0.05% Nasal Mulberry 15 ml Bottle] 2 - 3 spray NASL BID #1 bottle 07/12/18 History of Present Illness History of Present Illness: PER DEXTER is a 62 year old female with a past medical history of morbid obesity, hemodialysis dependent end-stage renal failure, aortic valve replacement on Coumadin, diabetes and hypertension. Patient presents with 1 week of worsening upper respiratory symptoms suggestive of sinusitis and bronchitis treated with azithromycin and prednisone. In the emergency room she is tachypneic, hypoxic at 87% on room air, and uncontrolled blood pressure 170/60. She receives albuterol and Atrovent, magnesium, insulin IV fluids and BiPAP and referred to the hospitalist for admission. Patient admits dietary indiscretion, discontinuing diabetic treatment, and recent prednisone initiation. She admits to orthopnea and lower extremity edema. Hospital Course Hospital Course: PER DEXTER is a 62 year old female with a past medical history of morbid obesity, hemodialysis dependent end-stage renal failure, aortic valve r eplacement on Coumadin, diabetes and hypertension. She is admitted to the hospitalist service for a COPD exacerbation on BiPAP, hypertensive emergency on nitro GTT , ESRD/volume overload. The patient reported symptoms of a developing URI and admitted to recent dietary indiscretion, which could have been the catalyst for her symptoms. Unfortunately, while she was in the emergency department she was given 2L IVF, which exacerbated her CHF and overall hypervolemic state. The patient was evaluated by Dr. Coley, who did not feel the patient required emergent dialysis. The patient was weaned from the nitro gtt, restarted on all home medications and placed on a cardiac/renal diet. Unfortunately, the patient did not comply with her dietary restrictions, she was witnessed giving money to friends to bring her fast food. The patient was dialyzed approximately 36hrs after her admission. She stated she felt much better following dialysis. She complained of URI symptoms (post-nasal drip and persistent cough). The patient was deemed safe for discharge since her vital signs all returned to normal. Was was offered prescriptions for Afrin and tessalon perles. Additionally, the patient was sent home with a prednisone taper for her COPD exacerbation, as well as refill prescriptions for a number of her home medications. For further information regarding the patient's hospitalization, please refer to the EMR. Physical Exam Vital Signs: Temp Pulse Resp BP Pulse Ox 97.5 F 70 17 148/44 H 100 07/12/18 16:49 07/12/18 16:49 07/12/18 16:49 07/12/18 16:49 07/12/18 16:49 General appearance: PRESENT: morbidly obese Eye exam: PRESENT: conjunctiva pink, PERRLA Mouth exam: PRESENT: moist, tongue midline Neck exam: PRESENT: full ROM Respiratory exam: PRESENT: clear to auscultation nuno, symmetrical, unlabored Cardiovascular exam: PRESENT: RRR Pulses: PRESENT: normal radial pulses, +1 pedal pulses bilateral Vascular exam: PRESENT: normal capillary refill GI/Abdominal exam: PRESENT: soft. ABSENT: distended, tenderness Rectal exam: PRESENT: deferred Extremities exam: PRESENT: full ROM, pedal edema - trace edema Musculoskeletal exam: PRESENT: ambulatory, full ROM Neurological exam: PRESENT: alert, awake, oriented to person, oriented to place, oriented to time, oriented to situation Psychiatric exam: PRESENT: appropriate affect Skin exam: PRESENT: dry, intact Results Laboratory Results: 07/12/18 06:16 07/12/18 06:16 07/10/18 07/10/18 17:01 17:01 Troponin I 0.022 NT-Pro-B Natriuret Pep 01652 H Impressions: Chest X-Ray 07/11/18 00:00 IMPRESSION: MILD DIFFUSE INTERSTITIAL PROMINENCE PROBABLY CHRONIC. CANNOT EXCLUDE MILD INTERSTITIAL EDEMA. OTHERWISE NO ACUTE FINDINGS. Status: Imported from PACS Qualifiers - * PATIENT BEING DISCHARGED WITH ANY OF THE FOLLOWING DIAGNOSIS: No
== END 2018-07-12 17:20 | disposition home or self-care (01) | DRG 190 ==
LOC: ER 14:39 → EH 21:33 → 3N 23:43
PROVIDERS: ADMIT Internal Medicine; ATTEND Internal Medicine
PROC: 5A09457 Assistance with Respiratory Ventilation, 24-96 Consecutive Hours, Continuous Positive Airway Pressure (ICD-10-PCS; 2018-07-10)
PROC: 5A1D70Z Performance of Urinary Filtration, Intermittent, Less than 6 Hours Per Day (ICD-10-PCS; principal; 2018-07-12)
DX: J44.1 Chronic obstructive pulmonary disease with (acute) exacerbation (principal); N18.6 End stage renal disease; I13.2 Hypertensive heart and chronic kidney disease with heart failure and with stage 5 chronic kidney disease, or end stage renal disease; I50.32 Chronic diastolic (congestive) heart failure; I16.1 Hypertensive emergency; E11.22 Type 2 diabetes mellitus with diabetic chronic kidney disease; Z99.2 Dependence on renal dialysis; E66.01 Morbid (severe) obesity due to excess calories; N25.0 Renal osteodystrophy; D63.1 Anemia in chronic kidney disease; F41.1 Generalized anxiety disorder; Z86.19 Personal history of other infectious and parasitic diseases; E11.21 Type 2 diabetes mellitus with diabetic nephropathy; Z79.01 Long term (current) use of anticoagulants; Z95.2 Presence of prosthetic heart valve; E03.9 Hypothyroidism, unspecified; M19.90 Unspecified osteoarthritis, unspecified site; F32.9 Major depressive disorder, single episode, unspecified; Z90.49 Acquired absence of other specified parts of digestive tract; Z90.710 Acquired absence of both cervix and uterus; Z87.891 Personal history of nicotine dependence; Z79.4 Long term (current) use of insulin; Z82.49 Family history of ischemic heart disease and other diseases of the circulatory system; Z83.3 Family history of diabetes mellitus; Z79.82 Long term (current) use of aspirin; Z79.51 Long term (current) use of inhaled steroids; Z91.11 Patient's noncompliance with dietary regimen
CPT/HCPCS: 36415; 71045; 71046; 80053; 82803; 82962; 83735; 83880; 84100; 84484; 85025; 85027; 85610; 86704; 86706; 87340; 93005; 93010; 94640; 94660; 94667; 94668; 94799; 96361; 96365; 99285; J0360; J1170; J1815; J2405; J3475; J3490; J7030; J7512; J7620; Q4081

== ENCOUNTER 2019-01-25 12:42 | Emergency (ER) | payer MEDICARE, BC ==
--- NOTE | 2019-01-25 13:08 | EKG REPORT ---
SEVERITY:- BORDERLINE ECG - SINUS RHYTHM BORDERLINE PROLONGED QT INTERVAL : Confirmed by: Kirill Dang MD 25-Jan-2019 13:07:05
[2019-01-25 13:52] LABS: ABSOLUTE LYMPHOCYTES (AUTO) 0.8 10^3/uL (0.5-4.7); ABSOLUTE MONOCYTES (AUTO) 0.5 10^3/uL (0.1-1.4); ABSOLUTE NEUT (AUTO) 6.5 10^3/uL (1.7-8.2); BASOPHILS % (AUTO) 0.4 % (0-2); HEMATOCRIT 28.2 % (36.0-47.0); HEMOGLOBIN 9.8 g/dL (12.0-15.5); LYMPHOCYTES % (AUTO) 10.3 % (13-45); MEAN CORPUSCULAR HEMOGLOBIN 34.2 pg (27.0-33.4); MEAN CORPUSCULAR HGB CONC 34.7 g/dL (32.0-36.0); MEAN CORPUSCULAR VOLUME 99 fl (80-97); MONOCYTES % (AUTO) 6.7 % (3-13); PLATELET COUNT 132 10^3/uL (150-450); RED BLOOD COUNT 2.86 10^6/uL (3.72-5.28); RED CELL DISTRIBUTION WIDTH 14.6 % (11.5-14.0); SEGMENTED NEUTROPHILS % (AUTO) 82.6 % (42-78); TOTAL CELLS COUNTED % (AUTO) 100 %; WHITE BLOOD COUNT 7.9 10^3/uL (4.0-10.5)
[2019-01-25 14:15] LABS: ALBUMIN 3.3 g/dL (3.5-5.0); ALKALINE PHOSPHATASE 190 U/L (38-126); ANION GAP 19 (5-19); ASPARTATE AMINO TRANSFERASE 49 U/L (14-36); BILIRUBIN,DIRECT 0.6 mg/dL (0.0-0.4); BILIRUBIN,TOTAL 0.8 mg/dL (0.2-1.3); BLOOD UREA NITROGEN 93 mg/dL (7-20); CALCIUM 7.5 mg/dL (8.4-10.2); CARBON DIOXIDE 17 mmol/L (22-30); CHLORIDE 101 mmol/L (98-107); CREATINE KINASE 135 U/L (30-135); GLUCOSE 287 mg/dL (75-110); TOTAL PROTEIN 5.7 g/dL (6.3-8.2)
[2019-01-25 14:25] LABS: CREATINE KINASE MB 3.05 ng/mL (<4.55)
[2019-01-25 14:29] LABS: TROPONIN I < 0.012 ng/mL
[2019-01-25] MEDS ORDERED: FENTANYL CITRATE INJ/PF 100 MCG/2 ML AMPUL IV ONE ×3 (14:34→19:33)
[2019-01-25] MEDS ORDERED: METOCLOPRAMIDE HCL INJ/PF 10 MG/2 ML SDV IV ONE (14:36)
[2019-01-25] MEDS ORDERED: HYDROMORPHONE HCL INJ/PF 2 MG/ML AMPULE IM ONE (14:59)
[2019-01-25] MEDS ORDERED: METOCLOPRAMIDE HCL INJ/PF 10 MG/2 ML SDV IM ONE (14:59)
--- NOTE | 2019-01-25 15:02 | RADIOLOGY REPORT (SQ) ---
EXAM DESCRIPTION: CHEST SINGLE VIEW COMPLETED DATE/TIME: 01/25/2019 2:49 pm REASON FOR STUDY: syncope COMPARISON: None. EXAM PARAMETERS: NUMBER OF VIEWS: One view. TECHNIQUE: Single frontal radiographic view of the chest acquired. RADIATION DOSE: NA LIMITATIONS: None. FINDINGS: LUNGS AND PLEURA: Low lung volumes. No focal consolidation, pleural effusion or pneumotho rax. MEDIASTINUM AND HILAR STRUCTURES: No masses. Contour normal. HEART AND VASCULAR STRUCTURES: Enlarged cardiac silhouette, stable. Evidence of prior median sternot marietta. BONES: No acute findings. Sternotomy changes. HARDWARE: Sternotomy hardware. OTHER: No other significant finding. IMPRESSION: Low lung volumes without evidence of acute cardiopulmonary process. TECHNICAL DOCUMENTATION: JOB ID: [id number] [employer]- All Rights Reserved Reading location - IP/workstation name: [email or web address]
[2019-01-25] MEDS ORDERED: ROCURONIUM BROMIDE INJ 50 MG/5 ML VIAL IV ONE ×3 (15:25→19:58)
[2019-01-25] MEDS ORDERED: NORMAL SALINE 1000 ML 250 ML IV ONE (15:41)
[2019-01-25] MEDS ORDERED: CALCIUM GLUCONATE 1000 MG/10 ML INJ IV ONE (15:47)
[2019-01-25] MEDS ORDERED: INSULIN REG, HUMAN 100 UNIT/ML 3 ML VIAL (PYX) IV ONE (15:47)
--- NOTE | 2019-01-25 15:49 | RADIOLOGY REPORT (SQ) ---
EXAM DESCRIPTION: CT HEAD WITHOUT COMPLETED DATE/TIME: 01/25/2019 3:33 pm REASON FOR STUDY: syncope COMPARISON: 09/23/2017 TECHNIQUE: Axial images acquired through the brain without intravenous contrast. Images reviewed wi th bone, brain and subdural windows. Additional sagittal and coronal reconstructions were generated. Images stored on PACS. All CT scanners at this facility use dose modulation, iterative reconstruction, and/or weight based d osing when appropriate to reduce radiation dose to as low as reasonably achievable (ALARA). [facility]: Dose Right [facility]: CareDose [facility]: Dose Right [facility]: Teradose 4D [facility]: Smart [facility] RADIATION DOSE: CT Rad equipment meets quality standard of care and radiation dose reduction techniq ues were employed. CTDIvol: 53.2 mGy. DLP: 1097 mGy-cm. mGy. LIMITATIONS: None. FINDINGS: VENTRICLES: Prominent. CEREBRUM: No masses. No hemorrhage. No midline shift. Areas of low density in the white matter mos t likely due to chronic micro-vascular ischemic change. No evidence for acute infarction. CEREBELLUM: No masses. No hemorrhage. No alteration of density. No evidence for acute infarction. EXTRAAXIAL SPACES: Mild age-related involutional change. No fluid collections. No masses. ORBITS AND GLOBE: No intra- or extraconal masses. Normal contour of globe without masses. CALVARIUM: No fracture. PARANASAL SINUSES: No fluid or mucosal thickening. SOFT TISSUES: No mass or hematoma. OTHER: No other significant finding. IMPRESSION: MILD CHRONIC CHANGES OF ATROPHY AND MICROVASCULAR ISCHEMIA. NO ACUTE PROCESS. EVIDENCE OF ACUTE STROKE: NO. TECHNICAL DOCUMENTATION: JOB ID: [id number] Quality ID # [id number]: Final reports with documentation of one or more dose reduction techniques (e.g., Au tomated exposure control, adjustment of the mA and/or kV according to patient size, use of iterative reconstruction technique) 2010 [employer]- All Rights Reserved Reading location - IP/workstation name: [email or web address]
--- NOTE | 2019-01-25 15:53 | RADIOLOGY REPORT (SQ) ---
EXAM DESCRIPTION: CT ABD/PELVIS NO ORAL OR IV COMPLETED DATE/TIME: 01/25/2019 3:33 pm REASON FOR STUDY: general pain COMPARISON: 02/18/2012 TECHNIQUE: CT scan of the abdomen and pelvis performed without intravenous or oral contrast. Images reviewed with lung, soft tissue, and bone windows. Reconstructed coronal and sagittal MPR images revi ewed. All images stored on PACS. All CT scanners at this facility use dose modulation, iterative reconstruction, and/or weight based d osing when appropriate to reduce radiation dose to as low as reasonably achievable (ALARA). [facility]: Dose Right [facility]: CareDose [facility]: Dose Right [facility]: Teradose 4D [facility]: Smart [facility] RADIATION DOSE: CT Rad equipment meets quality standard of care and radiation dose reduction techniq ues were employed. CTDIvol: 14.4 mGy. DLP: 826 mGy-cm.mGy. LIMITATIONS: None. FINDINGS: LOWER CHEST: Coronary artery calcifications. NON-CONTRASTED LIVER, SPLEEN, ADRENALS: Evaluation limited by lack of IV contrast. No identified sign ificant masses. There is a densely calcified lesion of the central right lobe of the liver. Splenom egaly, maximum span 14.4 cm. PANCREAS: No masses. No peripancreatic inflammatory changes. GALLBLADDER: Surgically absent. RIGHT KIDNEY AND URETER: There is extensive fat stranding about the right kidney and perinephric fasc ia, with the kidney poorly distinguished. Findings are most consistent with a large perinephric adelita eduard measuring at least 17.0 x 10.1 x 9.3 cm (series 3, image 45, series 601, image 41). LEFT KIDNEY AND URETER: Atrophic. No suspicious masses. Assessment limited by lack of IV contrast. Extensive vascular calcinosis with possible small discrete nonobstructive calculi. No hydronephros is or hydroureter. AORTA AND RETROPERITONEUM: No aneurysm. No retroperitoneal masses or adenopathy. Extensive atheroscl erosis and vascular calcinosis. BOWEL AND PERITONEAL CAVITY: No obvious masses or inflammatory changes. No free fluid. APPENDIX: Not clearly visualized. PELVIS, BLADDER, AND ABDOMINAL WALL:No fibroid uterus. No free fluid. Bladder normal. BONES: Renal osteodystrophy. OTHER: No other significant finding. IMPRESSION: 1. There is extensive fat stranding about the right kidney and perinephric fascia, with the kidney poorly distinguished. Findings are most consistent with a large perinephric hematoma measu ring at least 17.0 x 10.1 x 9.3 cm (series 3, image 45, series 601, image 41). 2. Chronic incidental findings as above. Findings reported to the emergency department by CORE critical findings reporting system at the time of interpretation. COMMENT: Quality ID # 436: Final reports with documentation of one or more dose reduction techniques (e.g., Automated exposure control, adjustment of the mA and/or kV according to patient size, use of iterative reconstruction technique) TECHNICAL DOCUMENTATION: JOB ID: [id number] [employer]- All Rights Reserved Reading location - IP/workstation name: [email or web address]
[2019-01-25 16:12] LABS: PROTHROMBIN TIME 41.6 SEC (11.4-15.4)
--- NOTE | 2019-01-25 16:19 | ER Document Report ---
ED Dizziness/Weakness - General Chief Complaint: Syncope Stated Complaint: POSSIBLE SYNCOPE Time Seen by Provider: 01/25/19 14:19 Primary Care Provider: JOSE MIGUEL ROSA MD [MAURA NIX] - Follow up as needed Notes: Patient is a 63-year-old female history of end-stage renal disease on dialysis, mechanical valve on Coumadin presents to the emergency department for syncopal episode at dialysis today. Was initially hooked up to the dialysis machine and then had a syncopal episode. Patient voices she is unsure of how long the syncopal episode lasted. Nursing staff states EMS stated "only a couple of seconds." Patient presents to the emergency department with right flank pain. She is denying any fall or injury. States she feels as though she is "belching too much." States she has generalized weakness. She is denying any respiratory distress or chest pain at this time. Patient voices she does not make any urine. Pts only complaint is the pain she has in her right flank region. Pt. voices, "I take Dilaudid at home, can't you just give me some Dilaudid?" TRAVEL OUTSIDE OF THE [place] IN LAST 30 DAYS: No COUNTRY TRAVELED TO/FROM: [facility] - Related Data Allergies/Adverse Reactions: amlodipine besylate [From Norvasc] Allergy (Severe, Verified 09/23/17 11:38) Hives diphenhydramine HCl [From Benadryl] Allergy (Severe, Verified 09/23/17 11:38) Hives heparin (porcine) [Heparin,Porcine] Allergy (Severe, Verified 09/23/17 11:38) Fever losartan [Losartan] Allergy (Severe, Verified 09/23/17 11:38) unsure Pork/Porcine Containing Products [Pork/Porcine Product Derivatives] Allergy (Severe, Verified 09/23/17 11:38) formoterol fumarate [From Dulera] Adverse Reaction (Severe, Verified 09/23/17 11:38) Tachycardia mometasone furoate [From Dulera] Adverse Reaction (Severe, Verified 09/23/17 11:38) Tachycardia ppd Allergy (Severe, Uncoded 09/23/17 11:38) converter Past Medical History - General Information source: Patient - Social History Smoking Status: Unknown if Ever Smoked Family History: Hypertension Patient has suicidal ideation: No Patient has homicidal ideation: No - Past Medical History Cardiac Medical History: Reports: Hx Coronary Artery Disease, Hx Hypertension, Hx Heart Murmur - AORTIC STENOSIS Denies: Hx Atrial Fibrillation, Hx Congestive Heart Failure, Hx Heart Attack, Hx Peripheral Vascular Disease, Hx Pulmonary Embolism Pulmonary Medical History: Reports: Hx Asthma - SEASONAL ALLERGIES TRIGGER ASTHMA, Hx COPD, Hx Sleep Apnea Denies: Hx Bronchitis, Hx Pneumonia, Hx Intubation, Hx Respiratory Failure Neurological Medical History: Denies: Hx Cerebrovascular Accident, Hx Seizures Endocrine Medical History: Reports: Hx Diabetes Mellitus Type 2, Hx Hypothyroidism Renal/ Medical History: Reports: Hx End Stage Renal Disease, Hx Hemodialysis, Hx Renal Insufficiency. Denies: Hx Peritoneal Dialysis Malignancy Medical History: Denies: Hx Bone Cancer, Hx Brain Cancer, Hx Breast Cancer, Hx Cervical Cancer, Hx Colorectal Cancer GI Medical History: Reports: Hx Hepatitis - Hepatitis C. Denies: Hx Ulcerative Colitis Musculoskeletal Medical History: Reports Hx Arthritis - ALL OVER Psychiatric Medical History: Reports: Hx Anxiety, Hx Depression Infectious Medical History: Reports: Hx Hepatitis - Hepatitis C Past Surgical History: Reports: Hx Cardiac Catheterization, Hx Cardiac Surgery - aortic valve replacement, Hx Cholecystectomy, Hx Gynecologic Surgery - fibroids, Hx Hysterectomy, Hx Kidney (Renal Surgery) - biopsies, Hx Orthopedic Surgery - Arthroplasty of right elbow, Hx Tonsillectomy, Hx Valve Replacement - Mechanical aortic valve on March 30, 2012, Hx Vascular Surgery - PermCath placement for dialysis, Other - History of myomectomy in 1994 - Immunizations Immunizations up to date: Yes Hx Diphtheria, Pertussis, Tetanus Vaccination: Yes Hx Pneumococcal Vaccination: 12/27/07 Review of Systems - Review of Systems Constitutional: denies: Fever EENT: No symptoms reported Cardiovascular: See HPI Respiratory: See HPI Gastrointestinal: See HPI Genitourinary: See HPI Female Genitourinary: No symptoms reported Musculoskeletal: See HPI Skin: No symptoms reported Hematologic/Lymphatic: See HPI Neurological/Psychological: See HPI Physical Exam - Vital signs Vitals: Pulse Ox 100 01/25/19 12:50 - Notes Notes: GENERAL: Alert, Rolling around in bed stating right flank hurts, moaning. HEAD: Normocephalic, atraumatic. EYES: Pupils equal, round, and reactive to light. Extraocular movements intact. ENT: Oral mucosa moist, tongue midline. NECK: Full range of motion. Supple. Trachea midline. LUNGS: Clear to auscultation bilaterally, no wheezes, rales, or rhonchi. No respiratory distress. HEART: Regular rate and rhythm. No murmur ABDOMEN: Soft, generalized tenderness noted right upper and lower quadrants. Non-distended. Bowel sounds present in all 4 quadrants. EXTREMITIES: Moves all 4 extremities spontaneously. No edema, normal radial and dorsalis pedis pulses bilaterally. No cyanosis. BACK: no cervical, thoracic, lumbar midline tenderness. No saddle anesthesia, normal distal neurovascular exam. Right CVA tenderness noted. NEUROLOGICAL: Alert and oriented x3. Normal speech. cranial nerves II through XII grossly intact PSYCH: Normal affect, normal mood. SKIN: Warm, dry, normal turgor. Course - Re-evaluation Re-evalutation: Pt. BP was noted to be around 100 systolic early in Pts stay in the ED. It has slowly been downtrending. I have discussed this case with my attending Dr. Hopson who is suggesting calling surgery for central line placement. Surgeon Dr. Fu has agreed to come to the ED to preform central line. Currently waiting on a return phone call from ICU at [facility] to set up transfer. Transfer Center at [facility] would like us to call nephrology Dr. oCley at this facility to see if she will be able to do dialysis. Nursing staff states warehouse freight handler advises we do not have dialysis beds at this time. I have paged to Dr. Coley at this time. 01/25/19 16:[address] I have spoken with Dr. Coley who states this pt must be transferred as we do not have the capability to do dialysis at this facility. I have re-paged [facility] at this time. 01/25/19 17:05 I have spoken with floor plan adjuster Dr. Ben Carey at [facility]. He is requesting a blood transfusion and fresh frozen plasma at this time. States he will accept the patient. He is requesting we attempted to get the patient's blood pressure at a more stable range prior to transport. Pt. was moved to T2 based on level or care. See Starla Turpin for further care. 01/25/19 19:05 Pt is currently on 8 of levophed with a MAP of 64 with a BP of 102/40. I have re-called [facility] to set up transport, they state they will speak with the doctor and call me back. 01/25/19 19:25 Called [facility] ICU bed given [id number], [employer] notified, will set up air transport. - Vital Signs Vital signs: Temp Pulse Resp BP Pulse Ox 98.0 F 71 18 110/64 100 01/25/19 21:50 01/25/19 21:50 01/25/19 21:50 01/25/19 21:50 01/25/19 21:50 - Laboratory Result Diagrams: 01/25/19 16:40 01/25/19 13:29 Laboratory results interpreted by me: 01/25/19 01/25/19 01/25/19 13:29 13:29 13:29 RBC 2.86 L Hgb 9.8 L Hct 28.2 L MCV 99 H MCH 34.2 H RDW 14.6 H Plt Count 132 L Lymph % (Auto) 10.3 L Absolute Neuts (auto) Seg Neutrophils % 82.6 H PT APTT VBG pH Sodium 136.6 L Potassium 6.0 H* Carbon Dioxide 17 L BUN 93 H Creatinine 9.39 H Est GFR ( Amer) 5 L Est GFR (MDRD) Non-Af 4 L Glucose 287 H POC Glucose Lactic Acid Calcium 7.5 L Direct Bilirubin 0.6 H AST 49 H Alkaline Phosphatase 190 H NT-Pro-B Natriuret Pep 22993 H Total Protein 5.7 L Albumin 3.3 L Crossmatch 01/25/19 01/25/19 01/25/19 15:40 16:40 16:40 RBC Hgb Hct MCV MCH RDW Plt Count Lymph % (Auto) Absolute Neuts (auto) Seg Neutrophils % PT 41.6 H 44.2 H APTT 44.5 H VBG pH 7.28 L Sodium Potassium Carbon Dioxide BUN Creatinine Est GFR ( Amer) Est GFR (MDRD) Non-Af Glucose POC Glucose Lactic Acid Calcium Direct Bilirubin AST Alkaline Phosphatase NT-Pro-B Natriuret Pep Total Protein Albumin Crossmatch 01/25/19 01/25/19 01/25/19 16:40 16:40 17:15 RBC 2.25 L Hgb 7.8 L Hct 22.9 L MCV 102 H MCH 34.9 H RDW 14.9 H Plt Count Lymph % (Auto) 7.8 L Absolute Neuts (auto) 8.7 H Seg Neutrophils % 87.0 H PT APTT VBG pH Sodium Potassium Carbon Dioxide BUN Creatinine Est GFR ( Amer) Est GFR (MDRD) Non-Af Glucose POC Glucose Lactic Acid 3.9 H Calcium Direct Bilirubin AST Alkaline Phosphatase NT-Pro-B Natriuret Pep Total Protein Albumin Crossmatch See Detail 01/25/19 01/25/19 18:01 20:28 RBC Hgb Hct MCV MCH RDW Plt Count Lymph % (Auto) Absolute Neuts (auto) Seg Neutrophils % PT APTT VBG pH Sodium Potassium Carbon Dioxide BUN Creatinine Est GFR ( Amer) Est GFR (MDRD) Non-Af Glucose POC Glucose 360 H Lactic Acid 6.9 H Calcium Direct Bilirubin AST Alkaline Phosphatase NT-Pro-B Natriuret Pep Total Protein Albumin Crossmatch Discharge - Discharge Clinical Impression: Perinephric hematoma, End stage renal disease on dialysis, Shock Hypotension Qualifiers: Hypotension type: unspecified hypotension type Qualified Code(s): I95.9 - Hypotension, unspecified Condition: Serious Disposition: [facility] Admitting Provider: Dr Ben Carey Referrals: JOSE MIGUEL ROSA MD [UNDERWATER ROBOTICIST] - Follow up as needed
--- NOTE | 2019-01-25 16:55 | Operative Report ---
Operative Report DATE OF SURGERY: 01/25/19 PREOPERATIVE DIAGNOSIS: Shock, critical need for intravenous access. POSTOPERATIVE DIAGNOSIS: Same OPERATION: Right femoral triple-lumen central venous catheter placed under ultrasound guidance. SURGEON: FELY DEJESUS ANESTHESIA: Local TISSUE REMOVED OR ALTERED: None COMPLICATIONS: None ESTIMATED BLOOD LOSS: 10 cc INTRAOPERATIVE FINDINGS: None PROCEDURE: Informed consent was obtained. Procedure was done at the patient's bedside in the emergency department. Patient is a dialysis patient on Coumadin with hypotension requiring venous access on an emergency basis. No history of DVTs. Patient's right groin was prepped and draped in usual sterile fashion. The right femoral vein was identified with the ultrasound. Local anesthetic was administered. The right femoral vein was cannulated. It withdrew back nonpulsatile dark blood. Triple-lumen central venous catheter was placed via the Seldinger technique without difficulty. It withdrew blood and flushed easily. Dressings were applied. Patient tolerated procedure well with no appa rent complications.
--- NOTE | 2019-01-25 16:58 | EKG REPORT ---
SEVERITY:- ABNORMAL ECG - SINUS RHYTHM BORDERLINE PROLONGED QT INTERVAL CONSIDER HYPERKALEMIA. : Confirmed by: Kirill Dang MD 25-Jan-2019 16:58:20
[2019-01-25] MEDS ORDERED: NORMAL SALINE 250 ML IV PRN ×4 (17:00→21:33)
[2019-01-25 17:32] LABS: INTERNATIONAL RATION (INR) 4.53; PARTIAL THROMBOPLASTIN TIME 44.5 SEC (23.5-35.8); PROTHROMBIN TIME 44.2 SEC (11.4-15.4)
[2019-01-25 17:33] LABS: VENOUS BLOOD BASE EXCESS -5.8 mmol/L; VENOUS BLOOD HCO3 20.8 mmol/L (20-32); VENOUS BLOOD PCO2 45.8 mmHg (35-63); VENOUS BLOOD PH 7.28 (7.30-7.42)
[2019-01-25] MEDS ORDERED: NOREPINEPHRINE BITARTRATE INJ/PF 4 MG/4 ML SDV IV ONE ×2 (18:05→21:50)
[2019-01-25 18:13] LABS: ABSOLUTE LYMPHOCYTES (AUTO) 0.8 10^3/uL (0.5-4.7); ABSOLUTE MONOCYTES (AUTO) 0.5 10^3/uL (0.1-1.4); ABSOLUTE NEUT (AUTO) 8.7 10^3/uL (1.7-8.2); BASOPHILS % (AUTO) 0.5 % (0-2); HEMATOCRIT 22.9 % (36.0-47.0); LYMPHOCYTES % (AUTO) 7.8 % (13-45); MEAN CORPUSCULAR HEMOGLOBIN 34.9 pg (27.0-33.4); MEAN CORPUSCULAR HGB CONC 34.2 g/dL (32.0-36.0); MEAN CORPUSCULAR VOLUME 102 fl (80-97); MONOCYTES % (AUTO) 4.7 % (3-13); PLATELET COUNT 168 10^3/uL (150-450); RED BLOOD COUNT 2.25 10^6/uL (3.72-5.28); RED CELL DISTRIBUTION WIDTH 14.9 % (11.5-14.0); TOTAL CELLS COUNTED % (AUTO) 100 %
[2019-01-25 18:17] LABS: HEMOGLOBIN 7.8 g/dL (12.0-15.5)
[2019-01-25] MEDS ORDERED: FENTANYL CITRATE INJ/PF 100 MCG/2 ML AMPUL ONE (18:20)
[2019-01-25] MEDS ORDERED: [UNRECOGNIZED DRUG - OTHER] IV ONE (18:45)
[2019-01-25] MEDS ORDERED: HUM PROTHROMBIN CPLX IV ONE (18:45)
--- NOTE | 2019-01-25 18:53 | RADIOLOGY REPORT (SQ) ---
EXAM DESCRIPTION: CHEST SINGLE VIEW COMPLETED DATE/TIME: 01/25/2019 6:44 pm REASON FOR STUDY: post-intubation COMPARISON: In December 1930 EXAM PARAMETERS: NUMBER OF VIEWS: One view TECHNIQUE: Single frontal radiograph of the chest. RADIATION DOSE: N/A LIMITATIONS: None. FINDINGS: TEMPORARY SUPPORT DEVICES:ETT is at the eve. Should be pulled back 2 cm. NG tube cour ses below the gisele-diaphragm in to the stomach. LUNGS AND PLEURA: No opacities. No effusions. No masses. No pneumothorax. MEDIASTINUM AND HILAR STRUCTURES: No masses. Contour normal. HEART AND VASCULAR STRUCTURES: Heart enlarged. No overt failure. Normal vascularity. Aorta normal fo r age. BONES: No acute findings. OTHER: No other significant finding. IMPRESSION: Cardiac enlargement. ET tube at the eve. Should be pulled back 2 cm. TECHNICAL DOCUMENTATION: JOB ID: [id number] [employer]- All Rights Reserved Reading location - IP/workstation name: [email or web address]
[2019-01-25] MEDS ORDERED: DEXTROSE 5%-WATER 250 ML with NOREPINEPHRINE BITARTRATE 4 MG IV PRN ×2 (18:55)
[2019-01-25] MEDS ORDERED: NORMAL SALINE 500 ML IV ONE (18:57)
[2019-01-25] MEDS ORDERED: PHYTONADIONE INJ 10 MG/1 ML AMPULE SUBCUT ONE (19:00)
--- NOTE | 2019-01-25 19:37 | ER Document Report ---
Doctor's Note Notes: 01/25/19 18:00 Called to room by provider taking care of patient as patient's blood pressure has been dropping. Patient initially responding and answering questions although seems confused. Current blood pressure 60/40. This was verified with manual blood pressure by nursing staff. Patient with hematoma and initial hemoglobin of 9.8 at 13:29. Repeat ordered. Blood just arrived and hanging. FFP hanging. Patient with central line.Patient has received 250ccbolus. NS 500 CC ordered. She is a dialysis patient and initial systolic blood pressure was 110. Blood and FFP given wide open after patient initially tolerated for 10 minutes. This makes total volume 1850cc. Patient with declining mental status. Not answering questions. Not following commands. Likely not tachycardic due to beta-susan masking acuity of illness. Still breathing at 15 respirations per minute. Patient ordered to have Levophed drip. Nursing staff will hang. Started bagging patient for altered mental status and airway protection. Will intubate patient due to altered mental status likely related to hypotension from bleeding. 18:25 Patient intubated. Please see procedure note. 01/25/19 19:05 Repeat hemoglobin 7.8. Blood pressure 99/52 with Levophed at 8. Call placed back to [facility] as patient has not been stabilized. She is intubated with central line, has had 2 units of PRBC, 2 units of FFP, and 750 of normal saline. Map greater than 65 at this time on Levophed drip. Patient given boluses of fentanyl for becoming awake with ventilator. 19:25 Given bed assignment at [facility]. Patient will be going to ICU. [place] aware and calling for air transport. 01/25/19 19:46 Blood pressure 100/54. Heart rate 81. 100% on ventilator. Stable for air transfer. Critical Care Note - Critical Care Note Total time excluding time spent on procedures (mins): 45 - Evaluation and management of hypotensive patient, multiple re-evaluations Procedures - Intubation Orotracheal Airway evaluation: Copious secretions, Large tongue Mallampati Classification: Class 4 Medications: Etomidate Intubation method: Orotracheal Blade type: Cortes Blade size: 4 ETT size: 7.5 ETT secured at: Teeth ETT secured at (cm): 24 End tidal CO2 confirmed: Yes Ventilator settings: PS Post Intubation Xray: Yes Intubation Complications: No complications
[2019-01-25] MEDS ORDERED: ETOMIDATE INJ/PF 20 MG/10 ML SDV IV ONE (19:53)
[2019-01-25] MEDS ORDERED: MIDAZOLAM HCL 50 MG/100 ML RTUINJ IV PRN ×2 (20:08→20:18)
[2019-01-25] MEDS ORDERED: MIDAZOLAM HCL 50 MG/100 ML RTUINJ ONE (20:10)
[2019-01-25] MEDS ORDERED: RINGERS SOLUTION,LACTATED 1,000 ML IV ONE (20:11)
[2019-01-25] MEDS ORDERED: DOBUTAMINE HCL/D5W 500 MG/250 ML RTUINJ IV ONE (21:50)
[2019-01-25 23:06] VITALS: BP 110/64
[2019-01-26] MEDS ORDERED: ETOMIDATE INJ/PF 20 MG/10 ML SDV IV ONE (10:34)
== END 2019-01-25 22:20 | disposition short-term general hospital (02) ==
LOC: ER 12:42
DX: I95.9 Hypotension, unspecified (principal); R57.9 Shock, unspecified; S37.021A Major contusion of right kidney, initial encounter; X58.XXXA Exposure to other specified factors, initial encounter; R41.82 Altered mental status, unspecified; R55 Syncope and collapse; R53.1 Weakness; E11.22 Type 2 diabetes mellitus with diabetic chronic kidney disease; I12.0 Hypertensive chronic kidney disease with stage 5 chronic kidney disease or end stage renal disease; N18.6 End stage renal disease; Z99.2 Dependence on renal dialysis; I25.10 Atherosclerotic heart disease of native coronary artery without angina pectoris; Z95.4 Presence of other heart-valve replacement; Z86.19 Personal history of other infectious and parasitic diseases
CPT/HCPCS: 93005; 86900; 86901; 36415; 87040; 82553; 36430; 86850; 82962; 82550; 85025; 85610; 85730; 80053; 84484; 86920; 82803; 83605; 83880; 71045; 70450; 74176; 93010; 94002; 31500; 36556; 76937; C1751; P9017; P9016; J0610; J3490 ×3; J3010; J2765; J1170; J3430; A9270; J2250; J7060; J7030; J7040; J7120; C9132 ×2; 94660; J1815